=== PATIENT | male | born 1940 | race Caucasian/White ===

== ENCOUNTER → 2020-11-29 12:57 | Outpatient (BNVA) | payer MEDICARE, OTHER, SELFPAY | PROVIDERS: PCP Internal Medicine; Visit Provider Hospitalist | DX: J44.9 Chronic obstructive pulmonary disease, unspecified (principal); J96.11 Chronic respiratory failure with hypoxia; S22.42XS Multiple fractures of ribs, left side, sequela | CPT/HCPCS: 99212 ==

== ENCOUNTER 2021-01-03 17:15 | Emergency (ER) | payer MEDICARE, OTHER, SELFPAY ==
--- NOTE | ~2021-01-03 | XR_ITS ---
EXAMINATION: XR CHEST CLINICAL INFORMATION: Shortness of breath COMPARISON: Dictated report chest x-ray August 30, 2016. Images are not available for review TECHNIQUE: Frontal portable view of the chest was obtained. 6:12 PM FINDINGS: Status post median sternotomy. The heart size is normal. No significant central pulmonary vascular congestion. Emphysematous bullous changes of upper lobes with parenchymal scarring. Likely pleural calcifications as well. There is hazy airspace opacities in the mid and lower lung which may be acute airspace disease. No dense consolidation. No large pleural effusion pneumothorax. XR/XR chest 1V IMPRESSION: Hazy airspace opacity in the mid and lower lungs bilateral. This may be due to infectious or inflammatory etiology, pneumonia versus cardiogenic etiology. Status post median sternotomy. Short-term follow-up PA and lateral chest x-ray would be suggested.
[2021-01-03 17:23] VITALS: BP 112/66; BP 121/76; PULSE 62; PULSE 65; RESP 17; TEMP 36.8; O2SAT 92; O2SAT 97; BMI 27.3
--- NOTE | 2021-01-03 17:34 | ED_ITS ---
HPI - SOB/Dyspnea General Chief Complaint: Dyspnea Stated Complaint: sob Time Seen by Provider: 01/03/21 17:33 Source: patient and family Mode of arrival: EMS Limitations: no limitations History of Present Illness HPI Narrative: Patient is 80 old with history of severe COPD on 3 L oxygen mostly in the night and during exertion for last 4 days been feeling more short of breath coughing with mucopurulent phlegm and using oxygen during daytime also patient is on Entyvio for Crohn's disease for last 4 yrs no chest pain or palpitation no leg swelling feels cold no chills Related Data Home Medications Medication Instructions Recorded Confirmed atorvastatin 10 mg tablet 10 mg PO DAILY 11/29/20 lamotrigine 25 mg tablet mg PO 11/29/20 mesalamine 0.375 gram 1.5 g PO QAM 11/29/20 capsule,extended release 24 hr propafenone 225 mg tablet 225 mg PO BID 11/29/20 quetiapine 25 mg tablet mg PO 11/29/20 quetiapine 50 mg tablet 50 mg PO DAILY 11/29/20 tamsulosin 0.4 mg capsule 0.4 mg PO DAILY 11/29/20 vortioxetine 10 mg tablet mg PO 11/29/20 (Trintellix) Previous Rx's Medication Instructions Recorded albuterol sulfate 90 mcg/actuation 2 inh INHALATION Q6H PRN 30 Days 11/29/20 aerosol inhaler #18 g fluticasone propionate 110 1 puff INHALATION BID #12 g 11/29/20 mcg/actuation HFA aerosol inhaler (Flovent HFA) tiotropium 2.5 mcg-olodaterol 2.5 2 puff INHALATION DAILY 30 Days #4 11/29/20 mcg/actuation mist for inhalation g (Stiolto Respimat) azithromycin 250 mg tablet 250 mg PO DAILY 4 Days #4 tab 01/03/21 (Zithromax) doxycycline hyclate 100 mg tablet 100 mg PO BID #20 tab 01/03/21 prednisone 20 mg tablet 40 mg PO DAILY #10 tab 01/03/21 Allergies Allergy/AdvReac Type Severity Reaction Status Date / Time Sulfa (Sulfonamide Allergy Severe Hives/Rash Verified 11/29/20 13:09 Antibiotics) trospium Allergy Severe Constipatio Verified 11/29/20 13:12 n Adhesive Tape Allergy Severe Rash Uncoded 11/29/20 13:09 Review of Systems Review of Systems: Yes all other systems are reviewed and are negative [facility] Past Medical History Medical History Acute Crohn's disease Atrial fibrillation BPH (benign prostatic hyperplasia) Chronic respiratory failure COPD (chronic obstructive pulmonary disease) case management patient Dementia Hyperlipidemia Hypertension Osteoarthritis Pneumonia Rib fractures Seizure Skin cancer Social History Social History Patient Tobacco Use Status: Former Tobacco user Tobacco use type: Cigarette Years Smoked: 11 years ago Advance Directives: No Advance Directives Information Provided: Yes Physical Exam Vital Signs: Vital Signs: Last Vital Signs Temp 97.6 F 01/03/21 21:14 Pulse 67 01/03/21 21:14 Resp 12 01/03/21 21:14 BP 108/66 01/03/21 21:14 Pulse Ox 94 01/03/21 21:14 Oxygen Flow Rate 3 01/03/21 17:23 Body Mass Index 27.3 Appearance: Alert. Oriented X3. No acute distress. Eyes: No pallor or icterus ENT: Pharynx normal. Oral Mucosa moist Neck: Normal inspection. Neck supple. CVS: Normal heart rate and rhythm. Pulses normal. Respiratory: No respiratory distress. Equal air entry bilateral, prolonged expiration occasional crackles in the bases Abdomen: Soft and nontender. Bowel sounds are present, no mass palpable, no CVA tenderness Skin: Skin warm and dry. Normal skin color. Normal skin turgor. Extremities: No lower extremity edema. No calf tenderness Neuro: Oriented X 3. MDM - SOB/Dyspnea MDM Narrative Medical decision making narrative: Patient feeling much better after coming to the ER nebulizing treatment was given along with Solu-Medrol p.o. doxycycline and Zithromax was given for bronchitis. Will discharge patient home on prednisone doxycycline Zithromax chest x-ray negative for any acute infiltrate slight haziness is mid and lower areas bilateral likely inflammatory the time of discharge patient was saturating 94% on 2 L nasal cannula ambulatory without any significant distress Lab Data Attestation: I reviewed the patient's lab results. Result diagrams: 01/03/21 18:01 01/03/21 18:32 Labs: Lab Results 10/26/21 10/26/21 10/26/21 Range/Units 18:01 18:01 18:01 WBC 6.7 (4.8-10.8) X10*3/uL RBC 4.74 (4.60-5.80) X10*6/uL Hgb 14.9 (14.0-18.0) g/dl Hct 45.0 (42-52) % MCV 94.9 (80-98) fL MCH 31.4 (27.0-33.0) pg MCHC 33.1 (31.0-36.0) g/dl RDW 13.2 (11.0-16.0) % Plt Count 202 (160-400) X10*3/uL MPV 9.5 (9.4-12.4) fL Immature Gran % (Auto) 0.4 (0.0-0.4) % Neut % (Auto) 58.0 (45-73) % Lymph % (Auto) 25.9 (20-40) % [place] % (Auto) 10.2 (2-11) % Eos % (Auto) 4.9 H (0-4) % Baso % (Auto) 0.6 (0-2) % Lymph # (Auto) 1.7 (1.2-4.9) X10*3/uL [place] # (Auto) 0.7 (0.1-1.2) X10*3/uL Eos # (Auto) 0.3 (0.0-0.4) X10*3/uL Baso # (Auto) 0.0 (0.0-0.2) X10*3/uL Abs Immat Gran (auto) 0.03 (0.00-0.03) X10*3/uL Absolute Neuts (auto) 3.9 (2.0-8.3) X10*3/uL Absolute Nucleated RBC 0.000 (0.0-0.012) X10*3/uL Nucleated RBC % (auto) 0.0 (0.0-0.2) /100WBC PT (9.9-13.0) SEC INR (0.9-1.1) Sodium (135-145) mmol/L Potassium (3.3-5.1) mmol/L Chloride (96-108) mmol/L Carbon Dioxide (22-29) mmol/L Anion Gap (12-20) BUN (9-16) mg/dL Creatinine (0.5-1.4) mg/dL Estim Creat Clear Calc Estimated GFR Random Glucose (60-115) mg/dL Lactic Acid (0.5-2.0) mmol/L Calcium (8.4-10.2) mg/dL Total Bilirubin (0.0-1.0) mg/dL Direct Bilirubin (0.0-0.5) mg/dL AST (5-37) U/L ALT (0-40) U/L Alkaline Phosphatase (39-117) U/L Troponin I High Sens < 3.5 (<3.5-35.0) ng/L B-Natriuretic Peptide 24 (<100) pg/mL Total Protein (6.5-8.0) g/dL Albumin (3.5-5.0) g/dL COVID-19 (BIANKA) Negative (Negative) COVID-19 Clin Com See Note 01/03/21 01/03/21 01/03/21 Range/Units 18:01 18:01 18:32 WBC (4.8-10.8) X10*3/uL RBC (4.60-5.80) X10*6/uL Hgb (14.0-18.0) g/dl Hct (42-52) % MCV (80-98) fL MCH (27.0-33.0) pg MCHC (31.0-36.0) g/dl RDW (11.0-16.0) % Plt Count (160-400) X10*3/uL MPV (9.4-12.4) fL Immature Gran % (Auto) (0.0-0.4) % Neut % (Auto) (45-73) % Lymph % (Auto) (20-40) % [place] % (Auto) (2-11) % Eos % (Auto) (0-4) % Baso % (Auto) (0-2) % Lymph # (Auto) (1.2-4.9) X10*3/uL [place] # (Auto) (0.1-1.2) X10*3/uL Eos # (Auto) (0.0-0.4) X10*3/uL Baso # (Auto) (0.0-0.2) X10*3/uL Abs Immat Gran (auto) (0.00-0.03) X10*3/uL Absolute Neuts (auto) (2.0-8.3) X10*3/uL Absolute Nucleated RBC (0.0-0.012) X10*3/uL Nucleated RBC % (auto) (0.0-0.2) /100WBC PT 12.3 (9.9-13.0) SEC INR 1.1 (0.9-1.1) Sodium 139 (135-145) mmol/L Potassium 4.0 (3.3-5.1) mmol/L Chloride 107 (96-108) mmol/L Carbon Dioxide 24 (22-29) mmol/L Anion Gap 12 (12-20) BUN 14 (9-16) mg/dL Creatinine 0.94 (0.5-1.4) mg/dL Estim Creat Clear Calc 65.6 Estimated GFR > 60 Random Glucose 92 (60-115) mg/dL Lactic Acid 1.0 (0.5-2.0) mmol/L Calcium 8.5 (8.4-10.2) mg/dL Total Bilirubin 0.5 (0.0-1.0) mg/dL Direct Bilirubin 0.2 (0.0-0.5) mg/dL AST 15 (5-37) U/L ALT 16 (0-40) U/L Alkaline Phosphatase 68 (39-117) U/L Troponin I High Sens (<3.5-35.0) ng/L B-Natriuretic Peptide (<100) pg/mL Total Protein 6.6 (6.5-8.0) g/dL Albumin 3.9 (3.5-5.0) g/dL COVID-19 (BIANKA) (Negative) COVID-19 Clin Com Discharge Plan Discharge Clinical Impression: Acute exacerbation of chronic obstructive airways disease Patient Disposition: Xfer LTC Transfer Details: Assisted living Instructions: COPD (Chronic Obstructive Pulmonary Disease) (ED) Additional Instructions: Continue oxygen Continue nebulizer and inhalers as prescribed by mail messenger contractor Take course of antibiotic as prescribed Course of prednisone as advised Report to the ER/PCP if not better Prescriptions: New prednisone 20 mg tablet 40 mg PO DAILY Qty: 10 RF: 0 doxycycline hyclate 100 mg tablet 100 mg PO BID Qty: 20 RF: 0 azithromycin [Zithromax] 250 mg tablet 250 mg PO DAILY 4 Days Qty: 4 RF: 0 No Action atorvastatin 10 mg tablet 10 mg PO DAILY RF: 0 lamotrigine 25 mg tablet PO RF: 0 quetiapine 25 mg tablet PO RF: 0 tamsulosin 0.4 mg capsule 0.4 mg PO DAILY RF: 0 Trintellix 10 mg tablet PO RF: 0 mesalamine 0.375 gram capsule,extended release 24hr 1.5 g PO QAM RF: 0 quetiapine 50 mg tablet 50 mg PO DAILY RF: 0 propafenone 225 mg tablet 225 mg PO BID RF: 0 Flovent HFA 110 mcg/actuation HFA aerosol inhaler 1 puff inhalation BID Qty: 12 RF: 11 albuterol sulfate 90 mcg/actuation HFA aerosol inhaler 2 inh inhalation Q6H PRN (Reason: shortness of breath or wheezing) 30 Days Qty: 18 RF: 12 Stiolto Respimat 2.5-2.5 mcg/actuation mist 2 puff inhalation DAILY 30 Days Qty: 4 RF: 11 Interventions: ED Discharge Assessment Last Done: 01/03/21 22:14 Discharge Date/Time: 01/03/21 22:15
--- NOTE | 2021-01-03 17:39 | ECG_ITS ---
Test Reason : SHORTNESS OF BREATH Blood Pressure : / mmHG Vent. Rate : 062 BPM Atrial Rate : 062 BPM P-R Int : 178 ms QRS Dur : 110 ms QT Int : 410 ms P-R-T Axes : 065 102 065 degrees QTc Int : 416 ms Normal sinus rhythm Rightward axis Intra-ventricular conduction delay Low voltage QRS Borderline ECG No previous ECGs available Referred By: Calvin Corrigan Electronically Signed By:KAITLIN ARMSTRONG MD
[2021-01-03 18:14] LABS: MANUAL DIFF FLAG NO
[2021-01-03] MEDS: Albuterol/Iprat 2.5/0.5MG 3 ML AMPUL.NEB INHALE (18:15)
[2021-01-03 18:16] VITALS: PULSE 61; O2SAT 95
[2021-01-03 18:25] LABS: Basophils Percent Auto 0.6 % (0-2); Eosinophils Absolute Auto 0.3 X10*3/uL (0.0-0.4); Eosinophils Percent Auto 4.9 % (0-4); Hemoglobin 14.9 g/dl (14.0-18.0); INTERNATIONAL NORM RATIO 1.1 (0.9-1.1); Imm Gran Abs Auto 0.03 X10*3/uL (0.00-0.03); Imm Gran Pct Auto 0.4 % (0.0-0.4); Lymphocytes Absolute Auto 1.7 X10*3/uL (1.2-4.9); Lymphocytes Percent Auto 25.9 % (20-40); Mean Corpuscular HGB Conc 33.1 g/dl (31.0-36.0); Mean Corpuscular Hemoglobin 31.4 pg (27.0-33.0); Mean Corpuscular Volume 94.9 fL (80-98); Mean Platelet Volume 9.5 fL (9.4-12.4); Monocytes Absolute Auto 0.7 X10*3/uL (0.1-1.2); Monocytes Percent Auto 10.2 % (2-11); Neutrophils Absolute Auto 3.9 X10*3/uL (2.0-8.3); Platelet Count 202 X10*3/uL (160-400); Prothrombin Time 12.3 SEC (9.9-13.0); Red Blood Count 4.74 X10*6/uL (4.60-5.80); Red Cell Distribution Width 13.2 % (11.0-16.0); White Blood Count 6.7 X10*3/uL (4.8-10.8)
[2021-01-03 18:39] LABS: B Type Natriuretic Peptide 24 pg/mL (<100); Troponin-I High Sensitivity < 3.5 ng/L (<3.5-35.0)
[2021-01-03 18:40] LABS: COVID-19 Test Negative (Negative); IDNOW Serial# 9DD0AD1C
[2021-01-03 18:56] LABS: Alanine Aminotransferase 16 U/L (0-40); Albumin Level 3.9 g/dL (3.5-5.0); Alkaline Phosphatase 68 U/L (39-117); Anion Gap 12 (12-20); Aspartate Amino Transferase 15 U/L (5-37); Bilirubin Direct 0.2 mg/dL (0.0-0.5); Bilirubin Total 0.5 mg/dL (0.0-1.0); Blood Urea Nitrogen 14 mg/dL (9-16); Calcium 8.5 mg/dL (8.4-10.2); Carbon Dioxide 24 mmol/L (22-29); Chloride 107 mmol/L (96-108); Creatinine Clr Calc Pharmacy 65.6; Estimated Glomerular Filt Rate > 60; Glucose Random 92 mg/dL (60-115); Sodium 139 mmol/L (135-145); Total Protein 6.6 g/dL (6.5-8.0)
[2021-01-03] MEDS: methylPREDNISolone Sod Succ 125 MG/2 ML VIAL IVPUSH (20:17)
[2021-01-03] MEDS: Azithromycin 500 MG TABLET PO (20:18)
[2021-01-03 21:14] VITALS: BP 108/66; PULSE 67; RESP 12; TEMP 36.4; O2SAT 94
== END 2021-01-03 22:15 ==
PROVIDERS: Emergency Provider Internal Medicine; PCP Internal Medicine
DX: J44.1 Chronic obstructive pulmonary disease with (acute) exacerbation (principal); R06.02 Shortness of breath; K50.90 Crohn's disease, unspecified, without complications; Z99.81 Dependence on supplemental oxygen; Z79.899 Other long term (current) drug therapy
CPT/HCPCS: 36415; 71045; 80048; 80076; 83605; 83880; 84484; 85025; 85610; 87040; 87635; 93005; 99284; J2930

== ENCOUNTER → 2021-01-06 09:30 | Outpatient (BNVA) | payer MEDICARE, OTHER, SELFPAY | PROVIDERS: PCP Internal Medicine; Visit Provider Hospitalist | DX: J44.9 Chronic obstructive pulmonary disease, unspecified (principal); J96.11 Chronic respiratory failure with hypoxia; J96.20 Acute and chronic respiratory failure, unspecified whether with hypoxia or hypercapnia; R07.9 Chest pain, unspecified; S22.42XS Multiple fractures of ribs, left side, sequela | CPT/HCPCS: 99212 ==

== ENCOUNTER 2021-01-06 10:27 | Inpatient (IN) | payer MEDICARE, OTHER, SELFPAY ==
--- NOTE | ~2021-01-06 | CT_ITS ---
EXAMINATION: CT ANGIOGRAM OF THE CHEST WITH AND WITHOUT CONTRAST (CT PULMONARY ANGIOGRAM FOR PE) CLINICAL INFORMATION: Reason for Exam PE r/o per pulmonology . Shortness of breath. COMPARISON: Previous chest x-ray 01/03/2021 TECHNIQUE: Prior to contrast administration, noncontrast localization images were obtained. Subsequently, multidetector volumetric imaging was performed from the thoracic inlet to below the diaphragms following the administration of 65 mL Omnipaque 350 intravenous contrast. No contrast reaction reported Sagittal, coronal, and MIP oblique sagittal reformatted images were obtained on the CT workstation, uploaded to PACS, and reviewed. This CT examination was performed using dose optimization techniques as appropriate, variously including the following: *Automated exposure control *Adjustment of mA and/or kV according to patient size (this includes techniques or standardized protocols for targeted exams where dose is matched to indication/reason for exam; i.e. extremities or head) *Use of iterative reconstruction technique Total exam dose-length product 374 mGy-cm FINDINGS: QUALITY OF STUDY/CONTRAST BOLUS: Satisfactory. PULMONARY ARTERIES: No central or segmental pulmonary emboli. THORACIC AORTA: No aneurysm or dissection. LUNG: There is evidence of severe emphysema and bullous disease seen in the upper there is crowding of lung markings at the lung bases. The lungs are clear. No endobronchial or endotracheal lesion is seen. Lungs. There are postsurgical changes to both upper lobes. There are adjacent thick bandlike linear densities. PLEURA: There is slight bilateral pleural thickening and pleural calcification. MEDIASTINUM: Normal heart size. Mild coronary artery calcification. No pericardial effusion. No hilar or mediastinal lymphadenopathy. No evidence of septal bowing or right heart strain. CHEST WALL/AXILLA: No axillary or internal mammary lymphadenopathy. OSSEOUS STRUCTURES: There is a recent left lateral seventh rib fracture. There is a right anterior third rib fracture. The costochondral cartilage of uncertain age.. There are mild degenerative changes of the spine. There are median sternotomy wires. UPPER ABDOMEN: There are several small low-attenuation liver lesions. This is difficult to characterize but may represent cysts. The largest measures 5 x 10 mm in the lateral segment of the left lobe axial image 55 series 4. There are 2 low-attenuation lesions in the upper pole of the right kidney measuring 1.2-2.5 cm probably representing cysts. There is mild reflux of contrast into the hepatic veins suggesting elevated right heart pressures. CT/CT angio chest PE protocol IMPRESSION: No evidence of pulmonary embolism. Severe bullous emphysema. Postsurgical changes to both upper lobes. Crowding lung markings at the lung bases. No evidence of pneumonia. Mild bilateral pleural thickening and pleural calcification. Bilateral rib fractures. VTE: negative
[2021-01-06 10:39] VITALS: BP 108/54; PULSE 63; RESP 20; O2SAT 98; BMI 27.0
--- NOTE | 2021-01-06 10:52 | ECG_ITS ---
Test Reason : DYSPNEA Blood Pressure : / mmHG Vent. Rate : 062 BPM Atrial Rate : 062 BPM P-R Int : 180 ms QRS Dur : 126 ms QT Int : 394 ms P-R-T Axes : 068 106 055 degrees QTc Int : 399 ms Normal sinus rhythm Rightward axis Low voltage QRS Non-specific intra-ventricular conduction block Abnormal ECG No significant changes seen Referred By: Breanne Garnett Electronically Signed By:KAITLIN ARMSTRONG MD
--- NOTE | 2021-01-06 11:14 | ED_ITS ---
HPI - SOB/Dyspnea General Chief Complaint: Dyspnea Stated Complaint: chest discomfort, sob Time Seen by Provider: 01/06/21 10:51 Source: patient Mode of arrival: ambulatory Limitations: no limitations History of Present Illness HPI Narrative: Patient comes to the emergency room from his hardware sales assistant's office, Dr. Farnsworth. Patient was seen here a few days ago, diagnosed with COPD exacerbation, started on prednisone, doxycycline and azithromycin. Patient was discharged home. Patient have a follow-up appointment with his hardware sales assistant today. Patient has history of dementia, however, he mentioned that he had chest pain and seems to be more short of breath. Patient only uses oxygen at bedtime. However, over last 4-5 days he has been using oxygen around the clock. I spoke with Dr. Farnsworth, we will go ahead and do a complete workup, rule out PE, and patient will likely benefit from admission.. At this time, patient states that he does not have chest pain, only occasional chest pressure. States that he feels comfortable breathing with his oxygen on. Denies abdominal pain, no fever or chills. MD elicited complaint: shortness of breath Related Data Home Medications Medication Instructions Recorded Confirmed atorvastatin 10 mg tablet 10 mg PO DAILY 11/29/20 01/06/21 lamotrigine 25 mg tablet 50 mg PO BID 11/29/20 01/06/21 mesalamine 0.375 gram 1.5 g PO QAM 11/29/20 01/06/21 capsule,extended release 24 hr propafenone 225 mg tablet 225 mg PO BID 11/29/20 01/06/21 quetiapine 25 mg tablet 25 mg PO DAILY@0900,1700 11/29/20 01/06/21 quetiapine 50 mg tablet 50 mg PO DAILY@1300,2100 11/29/20 01/06/21 tamsulosin 0.4 mg capsule 0.4 mg PO DAILY 11/29/20 01/06/21 vortioxetine 10 mg tablet 10 mg PO BID 11/29/20 01/06/21 (Trintellix) aspirin 81 mg chewable tablet 81 mg PO DAILY 01/06/21 01/06/21 multivitamin 1 tab PO DAILY 01/06/21 01/06/21 Previous Rx's Medication Instructions Recorded albuterol sulfate 90 mcg/actuation 2 inh INHALATION Q6H PRN 30 Days 11/29/20 aerosol inhaler #18 g fluticasone propionate 110 1 puff INHALATION BID #12 g 11/29/20 mcg/actuation HFA aerosol inhaler (Flovent HFA) tiotropium 2.5 mcg-olodaterol 2.5 2 puff INHALATION DAILY 30 Days #4 11/29/20 mcg/actuation mist for inhalation g (Stiolto Respimat) azithromycin 250 mg tablet 250 mg PO DAILY 4 Days #4 tab 01/03/21 (Zithromax) doxycycline hyclate 100 mg tablet 100 mg PO BID #20 tab 01/03/21 prednisone 20 mg tablet 40 mg PO DAILY #10 tab 01/03/21 Allergies Allergy/AdvReac Type Severity Reaction Status Date / Time Sulfa (Sulfonamide Allergy Severe Hives/Rash Verified 01/06/21 09:32 Antibiotics) trospium Allergy Severe Constipatio Verified 01/06/21 09:32 n Adhesive Tape Allergy Severe Rash Uncoded 11/29/20 13:09 Review of Systems Review of Systems: Constitutional : No Weight loss, No Fever, No Chills, No Night Sweats, No Fatigue, No Malaise ENT/Mouth : No Hearing loss, No Ear Pain, No Nasal Congestion, No Sinus Pain, No Hoarseness, No sore throat, No Rhinorrhea, No Swallowing Difficulty Eyes: No Eye Pain, No Swelling, No Redness, No Foreign Body, No Discharge, No Vision Changes Cardiovascular : Mild substernal chest pressure, more shortness of breath than usual which is improved by oxygen, no palpitations Respiratory : Complaining of Cough but is at baseline per patient, No Sputum, No Wheezing, No Smoke Exposure, No Dyspnea Gastrointestinal : No Nausea, No Vomiting, No Diarrhea, No Constipation, No abdominal Pain, No Hematochezia, No Melena Genitourinary : no irregular bleeding, No Dysuria, No Urinary Frequency, No Hematuria, No Urinary Incontinence, No Urgency, No Flank Pain, No Urinary Flow Changes, No Hesitancy Musculoskeletal : No joint pain, No Myalgias, No Joint Swelling Skin : No Skin Lesions, No rash Neuro : No Weakness, No Numbness, No Paresthesias, No Loss of Consciousness, No Dizziness, No Headache Psych : No Anxiety/Panic, No Depression, No SI/HI/AH/VH, No Social Issues, Heme/Lymph: No Bruising, No Bleeding,No Lymphadenopathy Endocrine : No Polyuria, No Polydipsia, No Temperature Intolerance [facility] Past Medical History Medical History Acute Crohn's disease Atrial fibrillation BPH (benign prostatic hyperplasia) Chronic respiratory failure COPD (chronic obstructive pulmonary disease) case management patient Dementia Hyperlipidemia Hypertension Osteoarthritis Pneumonia Rib fractures Seizure Skin cancer Social History Social History Patient Tobacco Use Status: Former Tobacco user Tobacco use type: Cigarette Years Smoked: 11 years ago Use of substances other than those prescribed or required for medical reasons: No Advance Directives: No Advance Directives Information Provided: Yes Physical Exam Vital Signs: Vital Signs: Last Vital Signs Pulse 63 01/06/21 10:39 Resp 20 01/06/21 10:39 BP 108/54 L 01/06/21 10:39 Pulse Ox 98 01/06/21 10:39 Oxygen Flow Rate 2 01/06/21 10:39 Body Mass Index 27.0 Const: Other: Appearance: Alert. Oriented X3. No acute distress. Eyes: Pupils equal, round and reactive to light. ENT: Pharynx normal. Neck: Normal inspection. Neck supple. No lymph nodes noted. No crepitus CVS: Normal heart rate and rhythm. Pulses normal. Normal S1 and S2 Respiratory: No respiratory distress. Nasal cannula 2 L, mild expiratory wheezing bilaterally, good air movement, bilateral basilar crackles Abdomen: Soft and nontender. No rigidity. No distention. Skin: Skin warm and dry. Normal skin color. Normal skin turgor. Extremities: No lower extremity edema. No lower extremity edema. No Lacerations. No Rash Neuro: Oriented X 3. No motor deficit. No sensory deficit. Moving all extermities. No slurred speech. Course Course Course Narrative: Patient is doing fairly well on oxygen 2L, tolerating well p.o. I discussed the patient with Dr. Arana and Dr. Farnsworth, pt being admitted MDM - SOB/Dyspnea Lab Data Result diagrams: 01/06/21 11:17 01/06/21 11:17 Labs: Lab Results 01/06/21 01/06/21 01/06/21 Range/Units 11:17 11:17 11:17 WBC 11.7 H (4.8-10.8) X10*3/uL RBC 4.59 L (4.60-5.80) X10*6/uL Hgb 14.7 (14.0-18.0) g/dl Hct 44.8 (42-52) % MCV 97.6 (80-98) fL MCH 32.0 (27.0-33.0) pg MCHC 32.8 (31.0-36.0) g/dl RDW 13.5 (11.0-16.0) % Plt Count 193 (160-400) X10*3/uL MPV 9.4 (9.4-12.4) fL Immature Gran % (Auto) 0.3 (0.0-0.4) % Neut % (Auto) 84.2 H (45-73) % Lymph % (Auto) 9.1 L (20-40) % [place] % (Auto) 5.4 (2-11) % Eos % (Auto) 0.7 (0-4) % Baso % (Auto) 0.3 (0-2) % Lymph # (Auto) 1.1 L (1.2-4.9) X10*3/uL [place] # (Auto) 0.6 (0.1-1.2) X10*3/uL Eos # (Auto) 0.1 (0.0-0.4) X10*3/uL Baso # (Auto) 0.0 (0.0-0.2) X10*3/uL Abs Immat Gran (auto) 0.04 H (0.00-0.03) X10*3/uL Absolute Neuts (auto) 9.9 H (2.0-8.3) X10*3/uL Absolute Nucleated RBC 0.000 (0.0-0.012) X10*3/uL Nucleated RBC % (auto) 0.0 (0.0-0.2) /100WBC PT 12.5 (9.9-13.0) SEC INR 1.1 (0.9-1.1) D-Dimer < 200 NG/ML Sodium 140 (135-145) mmol/L Potassium 4.6 (3.3-5.1) mmol/L Chloride 109 H (96-108) mmol/L Carbon Dioxide 23 (22-29) mmol/L Anion Gap 13 (12-20) BUN 17 H (9-16) mg/dL Creatinine 0.87 (0.5-1.4) mg/dL Estim Creat Clear Calc 70.9 Estimated GFR > 60 Random Glucose 117 H (60-115) mg/dL Lactic Acid (0.5-2.0) mmol/L Calcium 8.7 (8.4-10.2) mg/dL Total Bilirubin 0.5 (0.0-1.0) mg/dL Direct Bilirubin 0.2 (0.0-0.5) mg/dL AST 24 D (5-37) U/L ALT 24 (0-40) U/L Alkaline Phosphatase 64 (39-117) U/L Troponin I High Sens (<3.5-35.0) ng/L B-Natriuretic Peptide (<100) pg/mL Total Protein 7.0 (6.5-8.0) g/dL Albumin 4.0 (3.5-5.0) g/dL COVID-19 (BIANKA) (Negative) COVID-19 Clin Com 01/06/21 01/06/21 01/06/21 Range/Units 11:17 11:17 11:17 WBC (4.8-10.8) X10*3/uL RBC (4.60-5.80) X10*6/uL Hgb (14.0-18.0) g/dl Hct (42-52) % MCV (80-98) fL MCH (27.0-33.0) pg MCHC (31.0-36.0) g/dl RDW (11.0-16.0) % Plt Count (160-400) X10*3/uL MPV (9.4-12.4) fL Immature Gran % (Auto) (0.0-0.4) % Neut % (Auto) (45-73) % Lymph % (Auto) (20-40) % [place] % (Auto) (2-11) % Eos % (Auto) (0-4) % Baso % (Auto) (0-2) % Lymph # (Auto) (1.2-4.9) X10*3/uL [place] # (Auto) (0.1-1.2) X10*3/uL Eos # (Auto) (0.0-0.4) X10*3/uL Baso # (Auto) (0.0-0.2) X10*3/uL Abs Immat Gran (auto) (0.00-0.03) X10*3/uL Absolute Neuts (auto) (2.0-8.3) X10*3/uL Absolute Nucleated RBC (0.0-0.012) X10*3/uL Nucleated RBC % (auto) (0.0-0.2) /100WBC PT (9.9-13.0) SEC INR (0.9-1.1) D-Dimer NG/ML Sodium (135-145) mmol/L Potassium (3.3-5.1) mmol/L Chloride (96-108) mmol/L Carbon Dioxide (22-29) mmol/L Anion Gap (12-20) BUN (9-16) mg/dL Creatinine (0.5-1.4) mg/dL Estim Creat Clear Calc Estimated GFR Random Glucose (60-115) mg/dL Lactic Acid 1.2 (0.5-2.0) mmol/L Calcium (8.4-10.2) mg/dL Total Bilirubin (0.0-1.0) mg/dL Direct Bilirubin (0.0-0.5) mg/dL AST (5-37) U/L ALT (0-40) U/L Alkaline Phosphatase (39-117) U/L Troponin I High Sens < 3.5 (<3.5-35.0) ng/L B-Natriuretic Peptide 65 (<100) pg/mL Total Protein (6.5-8.0) g/dL Albumin (3.5-5.0) g/dL COVID-19 (BIANKA) Negative (Negative) COVID-19 Clin Com See Note Imaging Data CTA: Radiologist's impression: FINDINGS: QUALITY OF STUDY/CONTRAST BOLUS: Satisfactory. PULMONARY ARTERIES: No central or segmental pulmonary emboli.? THORACIC AORTA: No aneurysm or dissection. LUNG: There is evidence of severe emphysema and bullous disease seen in the upper there is crowding of lung markings at the lung bases. The lungs are clear. No endobronchial or endotracheal lesion is seen. Lungs. There are postsurgical changes to both upper lobes. There are adjacent thick bandlike linear densities. PLEURA: There is slight bilateral pleural thickening and pleural calcification. MEDIASTINUM: Normal heart size. Mild coronary artery calcification. No pericardial effusion.? No hilar or mediastinal lymphadenopathy.? No evidence of septal bowing or right heart strain. CHEST WALL/AXILLA: No axillary or internal mammary lymphadenopathy. OSSEOUS STRUCTURES: There is a recent left lateral seventh rib fracture. There is a right anterior third rib fracture. The costochondral cartilage of uncertain age.. There are mild degenerative changes of the spine. There are median sternotomy wires. UPPER ABDOMEN: There are several small low-attenuation liver lesions. This is difficult to characterize but may represent cysts. The largest measures 5 x 10 mm in the lateral segment of the left lobe axial image 55 series 4. There are 2 low-attenuation lesions in the upper pole of the right kidney measuring 1.2-2.5 cm probably representing cysts. There is mild reflux of contrast into the hepatic veins suggesting elevated right heart pressures. CT/CT angio chest PE protocol IMPRESSION: No evidence of pulmonary embolism. Severe bullous emphysema. Postsurgical changes to both upper lobes. Crowding lung markings at the lung bases. No evidence of pneumonia. Mild bilateral pleural thickening and pleural calcification. Bilateral rib fractures. ? VTE: negative Discharge Plan Discharge Clinical Impression: COPD (chronic obstructive pulmonary disease) Patient Disposition: Admitted As Inpatient
[2021-01-06 11:27] LABS: MANUAL DIFF FLAG NO
[2021-01-06 11:30] LABS: Basophils Percent Auto 0.3 % (0-2); Eosinophils Absolute Auto 0.1 X10*3/uL (0.0-0.4); Eosinophils Percent Auto 0.7 % (0-4); Hematocrit 44.8 % (42-52); Hemoglobin 14.7 g/dl (14.0-18.0); Imm Gran Abs Auto 0.04 X10*3/uL (0.00-0.03); Imm Gran Pct Auto 0.3 % (0.0-0.4); Lymphocytes Absolute Auto 1.1 X10*3/uL (1.2-4.9); Lymphocytes Percent Auto 9.1 % (20-40); Mean Corpuscular HGB Conc 32.8 g/dl (31.0-36.0); Mean Corpuscular Volume 97.6 fL (80-98); Mean Platelet Volume 9.4 fL (9.4-12.4); Monocytes Absolute Auto 0.6 X10*3/uL (0.1-1.2); Monocytes Percent Auto 5.4 % (2-11); Neutrophils Absolute Auto 9.9 X10*3/uL (2.0-8.3); Neutrophils Percent Auto 84.2 % (45-73); Platelet Count 193 X10*3/uL (160-400); Red Blood Count 4.59 X10*6/uL (4.60-5.80); Red Cell Distribution Width 13.5 % (11.0-16.0); White Blood Count 11.7 X10*3/uL (4.8-10.8)
[2021-01-06 11:37] LABS: INTERNATIONAL NORM RATIO 1.1 (0.9-1.1); Prothrombin Time 12.5 SEC (9.9-13.0)
[2021-01-06 11:41] LABS: Lactic Acid 1.2 mmol/L (0.5-2.0)
[2021-01-06 11:44] LABS: D Dimer < 200 NG/ML
[2021-01-06 11:45] LABS: COVID-19 Test Negative (Negative); IDNOW Serial# 9DD0AD1C
[2021-01-06 11:50] LABS: Alanine Aminotransferase 24 U/L (0-40); Alkaline Phosphatase 64 U/L (39-117); Anion Gap 13 (12-20); Aspartate Amino Transferase 24 U/L (5-37); Bilirubin Direct 0.2 mg/dL (0.0-0.5); Bilirubin Total 0.5 mg/dL (0.0-1.0); Blood Urea Nitrogen 17 mg/dL (9-16); Calcium 8.7 mg/dL (8.4-10.2); Carbon Dioxide 23 mmol/L (22-29); Chloride 109 mmol/L (96-108); Creatinine Clr Calc Pharmacy 70.9; Estimated Glomerular Filt Rate > 60; Glucose Random 117 mg/dL (60-115); Potassium 4.6 mmol/L (3.3-5.1); Sodium 140 mmol/L (135-145)
[2021-01-06 11:51] LABS: B Type Natriuretic Peptide 65 pg/mL (<100); Troponin-I High Sensitivity < 3.5 ng/L (<3.5-35.0)
--- NOTE | 2021-01-06 12:15 | PHA.MEDREC ---
Pharmacy Consult ? Medication Reconciliation Pharmacy has completed the medication reconciliation. Patient get blister packs from [facility]. Contact pharmacy to verify the directions. Patient's is unsure which ABX patient is on. Two were just prescribed by Dr. Farnsworth on 01/04/2021. Jessica Domínguez, GeoD
[2021-01-06] MEDS: iohexoL 350 MG/ML 100 ML INFUS..BTL IV (12:34)
[2021-01-06] MEDS: cefTRIAXone sodium 1 GM in 0.9 % Sodium Chloride 50 ML IV (13:29)
[2021-01-06] MEDS: methylPREDNISolone Sod Succ 125 MG/2 ML VIAL IVPUSH (13:30)
[2021-01-06] MEDS: Azithromycin 500 MG in 0.9 % Sodium Chloride 250 ML 125 MG IV (14:10)
--- NOTE | 2021-01-06 15:19 | PM.IMHP ---
History of Present Illness Date of Service: 01/06/21 80 year male with with among other COPD on O2 at 3l at night, mild dementia, afib that is rate controlled, HLD..He was seen in the ED on 01/03 with sob breath and was discharged to follow up with pulmonary clinic which she did today with Dr. Farnsworth and was subsequently sent to be evaluated in ED as he was also needing oxygen during the day. He has no cough, no fever..there has not being documentation of hypoxia here. CTA showed no PE, just some bronchial wall thickening. Review of Systems Review of Systems: sob, fatigu, no fever, no cough, Yes all other systems are reviewed and are negative [facility] Medical History Acute Crohn's disease Atrial fibrillation BPH (benign prostatic hyperplasia) Chronic respiratory failure COPD (chronic obstructive pulmonary disease) case management patient Dementia Hyperlipidemia Hypertension Osteoarthritis Pneumonia Rib fractures Seizure Skin cancer Family History (Updated 01/06/21 @ 15:20 by Jerad Arana MD) Father ALS (amyotrophic lateral sclerosis) Brother ALS (amyotrophic lateral sclerosis) Pertinent family history: . Social History Patient Tobacco Use Status: Former Tobacco user Tobacco use type: Cigarette Years Smoked: 11 years ago Use of substances other than those prescribed or required for medical reasons: No Advance Directives: No Advance Directives Information Provided: Yes Meds Allergies Allergy/AdvReac Type Severity Reaction Status Date / Time Sulfa (Sulfonamide Allergy Severe Hives/Rash Verified 01/06/21 09:32 Antibiotics) trospium Allergy Severe Constipatio Verified 01/06/21 09:32 n Adhesive Tape Allergy Severe Rash Uncoded 11/29/20 13:09 Active Medications: Current Medications Pharmacy Consult (Consult Rx Perform Med Rec) 1 each MISCELLANE ONCE PRN PRN Reason: Consult order Home Medications Medication Instructions Recorded Confirmed Last Taken Type atorvastatin 10 mg tablet 10 mg PO DAILY 11/29/20 01/06/21 Unknown History lamotrigine 25 mg tablet 50 mg PO BID 11/29/20 01/06/21 Unknown History mesalamine 0.375 gram 1.5 g PO QAM 11/29/20 01/06/21 Unknown History capsule,extended release 24 hr propafenone 225 mg tablet 225 mg PO BID 11/29/20 01/06/21 Unknown History quetiapine 25 mg tablet 25 mg PO DAILY@0900,1700 11/29/20 01/06/21 Unknown History quetiapine 50 mg tablet 50 mg PO DAILY@1300,2100 11/29/20 01/06/21 Unknown History tamsulosin 0.4 mg capsule 0.4 mg PO DAILY 11/29/20 01/06/21 Unknown History vortioxetine 10 mg tablet 10 mg PO BID 11/29/20 01/06/21 Unknown History (Trintellix) aspirin 81 mg chewable tablet 81 mg PO DAILY 01/06/21 01/06/21 Unknown History multivitamin 1 tab PO DAILY 01/06/21 01/06/21 Unknown History Physical Exam Vital Signs and Narrative: Vital Signs: Last Vital Signs Pulse 63 01/06/21 10:39 Resp 20 01/06/21 10:39 BP 108/54 L 01/06/21 10:39 Pulse Ox 98 01/06/21 10:39 Oxygen Flow Rate 2 01/06/21 10:39 Body Mass Index 27.0 Const: Other: Constitutional: Alert, in no distress, overweight. Mental Status: Oriented to person, place and time. Eyes: Pupils are equal, round and reactive to light. Ear, Nose and Throat: Oropharynx clear, mucous membranes moist. Ears and nose without eformities. Trachea midline Respiratory: Clear to auscultation. No wheezing, but some rales at baes Cardiovascular: S1 S2 regular. No murmurs, rubs or gallops. Gastrointestinal: Abdomen soft, non-tender, non-distended. Normal bowel sounds.? Neurologic: Cranial nerves II-XII grossly intact. No focal neurological deficits. Moves all extremities spontaneously.? Skin: No rashes or lesions.? Musculoskeletal: No cyanosis or clubbing. Psychiatric: Normal mood and affect? Results Labs CBC and Chem 7: 01/06/21 11:17 01/06/21 11:17 Labs: Laboratory Results - last 24 hr 01/06/21 01/06/21 01/06/21 11:17 11:17 11:17 MCV 97.6 MCH 32.0 MCHC 32.8 RDW 13.5 Plt Count 193 MPV 9.4 Immature Gran % (Auto) 0.3 Neut % (Auto) 84.2 H Lymph % (Auto) 9.1 L [place] % (Auto) 5.4 Eos % (Auto) 0.7 Baso % (Auto) 0.3 Lymph # (Auto) 1.1 L [place] # (Auto) 0.6 Eos # (Auto) 0.1 Baso # (Auto) 0.0 Abs Immat Gran (auto) 0.04 H Absolute Neuts (auto) 9.9 H Absolute Nucleated RBC 0.000 Nucleated RBC % (auto) 0.0 PT 12.5 INR 1.1 D-Dimer < 200 Anion Gap 13 Estim Creat Clear Calc 70.9 Estimated GFR > 60 Random Glucose 117 H Lactic Acid Calcium 8.7 Total Bilirubin 0.5 Direct Bilirubin 0.2 AST 24 D ALT 24 Alkaline Phosphatase 64 Troponin I High Sens B-Natriuretic Peptide Total Protein 7.0 Albumin 4.0 COVID-19 (BIANKA) COVID-19 [facility] [employer] 01/06/21 01/06/21 01/06/21 11:17 11:17 11:17 MCV MCH MCHC RDW Plt Count MPV Immature Gran % (Auto) Neut % (Auto) Lymph % (Auto) [place] % (Auto) Eos % (Auto) Baso % (Auto) Lymph # (Auto) [place] # (Auto) Eos # (Auto) Baso # (Auto) Abs Immat Gran (auto) Absolute Neuts (auto) Absolute Nucleated RBC Nucleated RBC % (auto) PT INR D-Dimer Anion Gap Estim Creat Clear Calc Estimated GFR Random Glucose Lactic Acid 1.2 Calcium Total Bilirubin Direct Bilirubin AST ALT Alkaline Phosphatase Troponin I High Sens < 3.5 B-Natriuretic Peptide 65 Total Protein Albumin COVID-19 (BIANKA) Negative COVID-19 Clin Com See Note Imaging Radiologist's Impressions: Impressions Chest CTA 01/06/21 10:51 IMPRESSION: No evidence of pulmonary embolism. Severe bullous emphysema. Postsurgical changes to both upper lobes. Crowding lung markings at the lung bases. No evidence of pneumonia. Mild bilateral pleural thickening and pleural calcification. Bilateral rib fractures. VTE: negative Assessment and Plan (1) COPD (chronic obstructive pulmonary disease): Status: Acute 80 male with COPD here with sob increase O2 requirement and will be observed overnight for mild exacerbation of COPD and assessment for home O2 in the morning. Plan: Observe ovenight, bronchodilators by neb, O2. Continue home meds for chronic issues as mentioned above. Quality Stroke Does the patient have a stroke diagnosis?: No VTE Prior VTE?: No VTE Risk Level:: Medical - low VTE Device Contraindication: Treatment Not Indicated VTE Drug Contraindication: Treatment Not Indicated
[2021-01-06] MEDS: Albuterol/Iprat 2.5/0.5MG 3 ML AMPUL.NEB INHALE ×2 (16:02→19:28)
[2021-01-06 16:03] VITALS: PULSE 68; O2SAT 96
[2021-01-06 16:33] VITALS: BP 98/54; PULSE 68; RESP 14; TEMP 36.3
[2021-01-06] MEDS: QUEtiapine Fumarate 25 MG TABLET PO (18:51)
[2021-01-06 19:29] VITALS: PULSE 62; O2SAT 96
--- NOTE | 2021-01-06 19:39 | PC.NURSE ---
[id number] GURVINDER FOR REPORT
[2021-01-06 20:19] VITALS: PULSE 76; O2SAT 95
[2021-01-06] MEDS: Fluticasone Propionate 100 MCG BLST.W.DEV 1 PUFF INHALE (20:19)
[2021-01-06 20:59] VITALS: BP 136/68; PULSE 81; RESP 19; TEMP 36.4; O2SAT 98
[2021-01-06] MEDS: QUEtiapine Fumarate 50 MG TABLET PO (21:32)
[2021-01-06] MEDS: lamoTRIgine 25 MG TABLET 50 MG PO (21:32)
[2021-01-06] MEDS: Vortioxetine Hydrobromide 10 MG TABLET PO (21:32)
[2021-01-06] MEDS: Benzonatate 100 MG CAPSULE PO (22:06)
[2021-01-07] VITALS (12 sets, daily range): BP systolic 90–106; BP diastolic 47–70; PULSE 67–88; RESP 12–18; TEMP 36.6–37.4; O2SAT 94–98
[2021-01-07] MEDS: 0.9 % Sodium Chloride Flush 3 ML SYRINGE IVFLUSH ×4 (01:28→21:39)
[2021-01-07] MEDS: Fluticasone Propionate 100 MCG BLST.W.DEV 1 PUFF INHALE ×2 (07:20→20:28)
[2021-01-07] MEDS: Albuterol/Iprat 2.5/0.5MG 3 ML AMPUL.NEB INHALE ×4 (07:20→20:28)
[2021-01-07] MEDS: lamoTRIgine 25 MG TABLET 50 MG PO ×2 (09:47→21:28)
[2021-01-07] MEDS: predniSONE 20 MG TABLET 40 MG PO (09:47)
[2021-01-07] MEDS: Vortioxetine Hydrobromide 10 MG TABLET PO ×2 (09:49→21:27)
[2021-01-07] MEDS: Tamsulosin HCL 0.4 MG CAPSULE PO (09:50)
[2021-01-07] MEDS: Multivitamin TABLET 1 TAB PO (09:50)
[2021-01-07] MEDS: Aspirin 81 MG TAB.CHEW PO (09:50)
[2021-01-07] MEDS: QUEtiapine Fumarate 25 MG TABLET PO ×2 (10:05→17:02)
--- NOTE | 2021-01-07 10:34 | MHC.CM.PN ---
spoke with pts jose who is an [employer] she repoprts they reside at [facility] where they have housekeeping,meals etc pt has home 02 dc plan retrun home with
[2021-01-07] MEDS: QUEtiapine Fumarate 50 MG TABLET PO ×2 (12:48→21:28)
--- NOTE | 2021-01-07 15:14 | P.PNIM_ITS ---
Subjective Subjective Date of Service: 01/07/21 Interval History: f/u on sob, had coughing fit overnight lasting hours, relieved with tesalon Review of Systems sob cough Physical Exam Vital Signs: Vital Signs: Last Vital Signs Temp 99.4 F 01/07/21 11:41 Pulse 88 01/07/21 13:28 Resp 14 01/07/21 11:41 BP 106/61 01/07/21 11:41 Pulse Ox 97 01/07/21 11:41 Oxygen Flow Rate 2 01/06/21 10:39 Body Mass Index 27.0 General: AO X 3, no acute distress Resp: rhonchi, no distress CVS: S1,S2,RRR GI: +BS, NT, no distention Skin: No rash Neuro: motor grossly intact Psych: appropriate affect Objective Data Active Medications Acetaminophen (Acetaminophen 325 Mg Tablet) 650 mg PO Q6H PRN PRN Reason: Pain, Mild (Pain Scale 1-3) Albuterol/Ipratropium (Albuterol/Iprat 2.5/0.5mg 3 Ml Ampul.Neb) 3 ml INHALE RQ4H WHILE AWAKE [facility] Last Admin: 01/07/21 13:27 Dose: 3 ml Documented by: BELEM Aspirin (Aspirin 81 Mg Tab.Chew) 81 mg PO DAILY [facility] Last Admin: 01/07/21 09:50 Dose: 81 mg Documented by: VANESSA Atorvastatin Calcium (Atorvastatin Calcium 10 Mg Tablet) 10 mg PO BEDTIME [facility] Benzonatate (Benzonatate 100 Mg Capsule) 100 mg PO TID PRN PRN Reason: Cough Last Admin: 01/06/21 22:06 Dose: 100 mg Documented by: JENNIFER Fluticasone Propionate (Fluticasone Propionate 100 Mcg Blst.W.Dev) 1 puff INHALE RBID [facility] Last Admin: 01/07/21 07:20 Dose: 1 puff Documented by: BELEM Lamotrigine (Lamotrigine 25 Mg Tablet) 50 mg PO BID [facility] Last Admin: 01/07/21 09:47 Dose: 50 mg Documented by: VANESSA Multivitamins/Vitamin C (Multivitamin Tablet) 1 tab PO DAILY [facility] Last Admin: 01/07/21 09:50 Dose: 1 tab Documented by: VANESSA Non-Formulary Medication (Mesalamine) 1.5 gm PO DAILY [facility] Non-Formulary Medication (Tiotropium-Olodaterol [Stiolto Respimat]) 2 puff INHALE DAILY [facility] Pharmacy Consult (Consult Rx Perform Med Rec) 1 each MISCELLANE ONCE PRN PRN Reason: Consult order Prednisone (Prednisone 20 Mg Tablet) 40 mg PO DAILY [facility] Last Admin: 01/07/21 09:47 Dose: 40 mg Documented by: VANESSA Propafenone HCl (Propafenone Hcl 150 Mg Tablet) 225 mg PO BID [facility] Last Admin: 01/07/21 09:47 Dose: 225 mg Documented by: VANESSA Comments: Quetiapine Fumarate (Quetiapine Fumarate 25 Mg Tablet) 25 mg PO DAILY@0900,1700 [facility] Last Admin: 01/07/21 10:05 Dose: 25 mg Documented by: VANESSA Quetiapine Fumarate (Quetiapine Fumarate 50 Mg Tablet) 50 mg PO DAILY@1300,2100 [facility] Last Admin: 01/07/21 12:48 Dose: 50 mg Documented by: VANESSA Sodium Chloride (0.9 % Sodium Chloride Flush 3 Ml Syringe) 3 ml IVFLUSH QSHIFT [facility] Last Admin: 01/07/21 09:50 Dose: 3 ml Documented by: VANESSA Tamsulosin HCl (Tamsulosin Hcl 0.4 Mg Capsule) 0.4 mg PO DAILY [facility] Last Admin: 01/07/21 09:50 Dose: 0.4 mg Documented by: VANESSA Vortioxetine (Vortioxetine Hydrobromide 10 Mg Tablet) 10 mg PO BID [facility] Last Admin: 01/07/21 09:49 Dose: 10 mg Documented by: VANESSA Labs CBC & Chem 7: 01/06/21 11:17 01/06/21 11:17 Microbiology Microbiology Results: Microbiology 01/06/21 12:08 Blood Culture - Preliminary Blood - Venous No growth after 24 hours. 01/06/21 11:17 Blood Culture - Preliminary Blood - Venous No growth after 24 hours. Assessment and Plan (1) COPD (chronic obstructive pulmonary disease): Status: Acute Assessment and Plan: ?80 male with? COPD here with sob increase O2 requirement and will be observed overnight for mild exacerbation of COPD and assessment for home O2 in the morning. Plan: Observe ovenight, bronchodilators by neb, O2. Prednisone ? Continue home meds for chronic issues as? mentioned above. reeval for home O2 tomorrow, robitussin for cough Quality Stroke Does the patient have a stroke diagnosis?: No VTE Prior VTE?: No VTE Risk Level:: Medical - low VTE Device Contraindication: Treatment Not Indicated VTE Drug Contraindication: Treatment Not Indicated
[2021-01-07] MEDS: Atorvastatin Calcium 10 MG TABLET PO (21:27)
[2021-01-08] VITALS (13 sets, daily range): BP systolic 91–106; BP diastolic 57–77; PULSE 64–94; RESP 12–16; TEMP 36.2–37.1; O2SAT 90–956
[2021-01-08] MEDS: 0.9 % Sodium Chloride 1,000 ML 75 ML IVCONT (00:21)
[2021-01-08] MEDS: Tamsulosin HCL 0.4 MG CAPSULE PO (07:28)
[2021-01-08] MEDS: lamoTRIgine 25 MG TABLET 50 MG PO ×2 (07:30→21:21)
[2021-01-08] MEDS: Vortioxetine Hydrobromide 10 MG TABLET PO ×2 (07:30→21:21)
[2021-01-08] MEDS: Multivitamin TABLET 1 TAB PO (07:30)
[2021-01-08] MEDS: predniSONE 20 MG TABLET 40 MG PO (07:31)
[2021-01-08] MEDS: Aspirin 81 MG TAB.CHEW PO (07:31)
[2021-01-08] MEDS: Albuterol/Iprat 2.5/0.5MG 3 ML AMPUL.NEB INHALE ×4 (07:40→19:32)
[2021-01-08] MEDS: Fluticasone Propionate 100 MCG BLST.W.DEV 1 PUFF INHALE ×2 (07:40→19:32)
--- NOTE | 2021-01-08 09:08 | P.PNIM_ITS ---
Subjective Subjective Date of Service: 01/08/21 Interval History: F/u copd ex, feels hoarse, cough is better Review of Systems no fever sob with activity cough Physical Exam Vital Signs: Vital Signs: Last Vital Signs vitals reveiwed Oxygen Flow Rate 2 01/06/21 10:39 Body Mass Index 27.0 General: AO X 3, no acute distress Resp: rhonchi bl CVS: S1,S2,RRR GI: +BS, NT, no distention Skin: No rash Neuro: motor grossly intact Psych: appropriate affect Objective Data Active Medications Acetaminophen (Acetaminophen 325 Mg Tablet) 650 mg PO Q6H PRN PRN Reason: Pain, Mild (Pain Scale 1-3) Albuterol/Ipratropium (Albuterol/Iprat 2.5/0.5mg 3 Ml Ampul.Neb) 3 ml INHALE RQ4H WHILE AWAKE [facility] Last Admin: 01/09/21 07:43 Dose: 3 ml Documented by: PRADEEP Aspirin (Aspirin 81 Mg Tab.Chew) 81 mg PO DAILY [facility] Last Admin: 01/09/21 09:07 Dose: 81 mg Documented by: RADHA Atorvastatin Calcium (Atorvastatin Calcium 10 Mg Tablet) 10 mg PO BEDTIME [facility] Last Admin: 01/08/21 21:21 Dose: 10 mg Documented by: LINDSAY Benzonatate (Benzonatate 100 Mg Capsule) 100 mg PO TID PRN PRN Reason: Cough Last Admin: 01/06/21 22:06 Dose: 100 mg Documented by: JENNIFER Doxycycline Hyclate (Doxycycline Hyclate 100 Mg Tablet) 100 mg PO BID [facility] Last Admin: 01/09/21 09:07 Dose: 100 mg Documented by: RADHA Fluticasone Propionate (Fluticasone Propionate 100 Mcg Blst.W.Dev) 1 puff INHALE RBID [facility] Last Admin: 01/09/21 07:44 Dose: 1 puff Documented by: PRADEEP Guaifenesin (Guaifenesin 100 Mg/5 Ml Liquid) 5 ml PO Q4H PRN PRN Reason: Cough Lamotrigine (Lamotrigine 25 Mg Tablet) 50 mg PO BID [facility] Last Admin: 01/09/21 09:06 Dose: 50 mg Documented by: RADHA Multivitamins/Vitamin C (Multivitamin Tablet) 1 tab PO DAILY [facility] Last Admin: 01/09/21 09:07 Dose: 1 tab Documented by: RADHA Patient Own Medication ( Tiotropium- Olodaterol [Stiolto Respimat] 2.5-2.5 Mcg/Actuation) 2 each INHALE DAILY [facility] Last Admin: 01/08/21 07:32 Dose: 2 each Documented by: VANESSA Patient Own Medication ( Mesalamine 0.375 Gram Capsule, Extended Release 24hr) 4 each PO DAILY [facility] Last Admin: 01/09/21 09:06 Dose: Not Given Documented by: RADHA Non-Admin Reason: Med Not Available Pharmacy Consult (Consult Rx Perform Med Rec) 1 each MISCELLANE ONCE PRN PRN Reason: Consult order Prednisone (Prednisone 20 Mg Tablet) 40 mg PO DAILY [facility] Last Admin: 01/09/21 09:05 Dose: 40 mg Documented by: RADHA Propafenone HCl (Propafenone Hcl 150 Mg Tablet) 225 mg PO BID [facility] Last Admin: 01/09/21 09:06 Dose: 225 mg Documented by: RADHA Quetiapine Fumarate (Quetiapine Fumarate 25 Mg Tablet) 25 mg PO DAILY@0900,1700 [facility] Last Admin: 01/08/21 18:13 Dose: 25 mg Documented by: VANESSA Quetiapine Fumarate (Quetiapine Fumarate 50 Mg Tablet) 50 mg PO DAILY@1300,2100 [facility] Last Admin: 01/08/21 21:21 Dose: 50 mg Documented by: LINDSAY Sodium Chloride (0.9 % Sodium Chloride Flush 3 Ml Syringe) 3 ml [facility] Last Admin: 01/09/21 09:06 Dose: 3 ml Documented by: RADHA Tamsulosin HCl (Tamsulosin Hcl 0.4 Mg Capsule) 0.4 mg PO DAILY [facility] Last Admin: 01/09/21 09:07 Dose: 0.4 mg Documented by: RADHA Vortioxetine (Vortioxetine Hydrobromide 10 Mg Tablet) 10 mg PO BID [facility] Last Admin: 01/09/21 09:06 Dose: 10 mg Documented by: RADHA Labs CBC & Chem 7: 01/06/21 11:17 01/06/21 11:17 Microbiology Microbiology Results: Microbiology 01/06/21 12:08 Blood Culture - Preliminary Blood - Venous No growth after 48 hours. 01/06/21 11:17 Blood Culture - Preliminary Blood - Venous No growth after 48 hours. Assessment and Plan (1) COPD (chronic obstructive pulmonary disease): Status: Acute Assessment and Plan: ?80 male with? COPD here with sob increase O2 requirement and will be observed overnight for mild exacerbation of COPD and assessment for home O2 in the morning. Plan: Observe ovenight, bronchodilators by neb, O2. Prednisone ? Continue home meds for chronic issues as? mentioned above. reeval for home O2, robitussin for cough.. home tomorrow Late entry note for 01/08/21 Quality Stroke Does the patient have a stroke diagnosis?: No VTE Prior VTE?: No VTE Risk Level:: Medical - low VTE Device Contraindication: Treatment Not Indicated VTE Drug Contraindication: Treatment Not Indicated
[2021-01-08] MEDS: QUEtiapine Fumarate 25 MG TABLET PO ×2 (09:16→18:13)
[2021-01-08] MEDS: QUEtiapine Fumarate 50 MG TABLET PO ×2 (15:34→21:21)
[2021-01-08] MEDS: 0.9 % Sodium Chloride Flush 3 ML SYRINGE IVFLUSH ×2 (18:15→21:26)
[2021-01-08] MEDS: Atorvastatin Calcium 10 MG TABLET PO (21:21)
[2021-01-09 03:31] VITALS: BP 85/47; PULSE 73; RESP 16; TEMP 36.2; O2SAT 93
[2021-01-09 03:48] VITALS: BP 103/67
[2021-01-09] MEDS: Albuterol/Iprat 2.5/0.5MG 3 ML AMPUL.NEB INHALE ×2 (07:43→11:22)
[2021-01-09] MEDS: Fluticasone Propionate 100 MCG BLST.W.DEV 1 PUFF INHALE (07:44)
[2021-01-09 07:54] VITALS: BP 101/58; PULSE 73; RESP 14; TEMP 36.3; O2SAT 97
[2021-01-09] MEDS: predniSONE 20 MG TABLET 40 MG PO (09:05)
--- NOTE | 2021-01-09 09:05 | P.DS_ITS ---
DS: Providers Provider Date of Service: 01/09/21 Date of admission: 01/06/21 15:31 Primary care physician: Savita Metcalf MD DS: Diagnosis Discharge Diagnosis (1) COPD (chronic obstructive pulmonary disease): Status: Acute DS: Summary Hospital Course Hospital Course: 80 year male with with among other COPD on O2 at 3l at night, mild dementia, afib that is rate controlled, HLD..He was seen in the ED on 01/03 with sob breath and was discharged to follow up with pulmonary clinic which she did today with Dr. Farnsworth and was subsequently sent to be evaluated in ED as he was also needing oxygen during the day. He has no cough, no fever..there has not being documentation of hypoxia here. CTA showed no PE, just some bronchial wall thickening.? Hospital course: Patient presented with sob and found to have exacerbation of copd and treated with steroid, bronchodilator by Nebulizer. He has signficant drop in oxygen upon ambulation and therefore needs oxygen with activity. 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 Farnsworth Time Spent with Patient Time attestation: Total time spent providing and/or coordinating discharge services: Discharge coordination time: Greater than 30 minutes Quality: Stroke Does the patient have a stroke diagnosis?: No Physical Exam Vital Signs: Vital Signs: Last Vital Signs Temp 97.4 F 01/09/21 07:54 Pulse 73 01/09/21 07:54 Resp 14 01/09/21 07:54 BP 101/58 L 01/09/21 07:54 Pulse Ox 97 01/09/21 07:54 Oxygen Flow Rate 2 01/06/21 10:39 Body Mass Index 27.0 DS: Data Data Completed and Pending Labs on day of discharge: Preliminary micro results at discharge 01/06/21 12:08 Blood Culture - Preliminary Blood - Venous No growth after 48 hours. 01/06/21 11:17 Blood Culture - Preliminary Blood - Venous No growth after 48 hours. Discharge Plan Discharge Anticipated Discharge Date/Time: 01/09/21 08:59 Patient Disposition: Home, Self-Care Discharge Diagnosis: COPD exacerbation Referrals: Savita Metcalf MD [Primary Care Provider] - 1 Week Discharge Medications: New prednisone 20 mg tablet 20 mg PO DAILY Qty: 3 RF: 0 Continued prednisone 20 mg tablet 40 mg PO DAILY Qty: 10 RF: 0 doxycycline hyclate 100 mg tablet 100 mg PO BID Qty: 20 RF: 0 azithromycin [Zithromax] 250 mg tablet 250 mg PO DAILY 4 Days Qty: 4 RF: 0 multivitamin Tablet 1 tab PO DAILY RF: 0 aspirin [Baby Aspirin] 81 mg Tablet,Chewable 81 mg PO DAILY RF: 0 atorvastatin 10 mg tablet 10 mg PO DAILY RF: 0 lamotrigine 25 mg tablet 50 mg PO BID RF: 0 quetiapine 25 mg tablet 25 mg PO DAILY@0900,1700 RF: 0 tamsulosin 0.4 mg capsule 0.4 mg PO DAILY RF: 0 Trintellix 10 mg tablet 10 mg PO BID RF: 0 mesalamine 0.375 gram capsule,extended release 24hr 1.5 g PO QAM RF: 0 quetiapine 50 mg tablet 50 mg PO DAILY@1300,2100 RF: 0 propafenone 225 mg tablet 225 mg PO BID RF: 0 Flovent HFA 110 mcg/actuation HFA aerosol inhaler 1 puff inhalation BID Qty: 12 RF: 11 albuterol sulfate 90 mcg/actuation HFA aerosol inhaler 2 inh inhalation Q6H PRN (Reason: shortness of breath or wheezing) 30 Days Qty: 18 RF: 12 Stiolto Respimat 2.5-2.5 mcg/actuation mist 2 puff inhalation DAILY 30 Days Qty: 4 RF: 11 Discharge Orders: Discharge Order (Routine); Ordered 01/09/21 Ordered By: Jerad Arana Diet: advance to usual diet Activity on Discharge: As tolerated Stand Alone Forms: Patient Portal Discharge page Care Plan Goals: prevent rehospitalization and control of copd Health Concerns: Oxygen dependent COPD Plan of Treatment: Use inhalers, take steroid and use oxygen as directed and follow up with your Doctor and lung doctor in a week Assessment: As above
[2021-01-09] MEDS: 0.9 % Sodium Chloride Flush 3 ML SYRINGE IVFLUSH (09:06)
[2021-01-09] MEDS: Vortioxetine Hydrobromide 10 MG TABLET PO (09:06)
[2021-01-09] MEDS: lamoTRIgine 25 MG TABLET 50 MG PO (09:06)
[2021-01-09] MEDS: Multivitamin TABLET 1 TAB PO (09:07)
[2021-01-09] MEDS: Aspirin 81 MG TAB.CHEW PO (09:07)
[2021-01-09] MEDS: Tamsulosin HCL 0.4 MG CAPSULE PO (09:07)
[2021-01-09] MEDS: QUEtiapine Fumarate 25 MG TABLET PO (09:10)
[2021-01-09 11:24] VITALS: O2SAT 96
== END 2021-01-09 12:34 | disposition home or self-care (01) | DRG 192 ==
LOC: HO.ED 13:14 → HO.EDOVER 15:39 → HO.S3 18:40
PROVIDERS: Admitting Provider Internal Medicine; Emergency Provider Emergency Medicine; PCP Internal Medicine; Visit Provider Internal Medicine
DX: J44.1 Chronic obstructive pulmonary disease with (acute) exacerbation (principal); F03.90 Unspecified dementia, unspecified severity, without behavioral disturbance, psychotic disturbance, mood disturbance, and anxiety; I48.91 Unspecified atrial fibrillation; E78.5 Hyperlipidemia, unspecified; Z99.81 Dependence on supplemental oxygen; Z20.822 Contact with and (suspected) exposure to COVID-19; Z88.2 Allergy status to sulfonamides; Z79.51 Long term (current) use of inhaled steroids; Z79.82 Long term (current) use of aspirin; Z79.899 Other long term (current) drug therapy
CPT/HCPCS: 36415; 71045; 71275; 80048; 80076; 83605; 83880; 84484; 85025; 85379; 85610; 87040; 87635; 93005; 94640; 96365; 96367; 96375; 99212; 99225; 99284; 99285; J0456; J0696; J2930; Q9967

== ENCOUNTER → 2021-01-23 13:45 | Outpatient (BNVA) | payer MEDICARE, OTHER, SELFPAY | PROVIDERS: PCP Internal Medicine; Visit Provider Hospitalist | DX: J44.9 Chronic obstructive pulmonary disease, unspecified (principal); J96.11 Chronic respiratory failure with hypoxia; S22.42XS Multiple fractures of ribs, left side, sequela | CPT/HCPCS: 99212 ==

== ENCOUNTER → 2021-02-10 13:34 | Outpatient (BNVA) | payer MEDICARE, OTHER, SELFPAY | PROVIDERS: PCP Internal Medicine; Visit Provider Hospitalist | DX: J44.9 Chronic obstructive pulmonary disease, unspecified (principal); J96.11 Chronic respiratory failure with hypoxia | CPT/HCPCS: 96372; 99212; J2930 ==

== ENCOUNTER → 2021-04-24 13:49 | Outpatient (BNVA) | payer MEDICARE, OTHER, SELFPAY | PROVIDERS: PCP Internal Medicine; Visit Provider Hospitalist | DX: J44.9 Chronic obstructive pulmonary disease, unspecified (principal); J96.11 Chronic respiratory failure with hypoxia; R91.8 Other nonspecific abnormal finding of lung field | CPT/HCPCS: 94618; 99212 ==

== ENCOUNTER 2021-05-17 18:22 | Emergency (ER) | payer MEDICARE, OTHER, SELFPAY ==
--- NOTE | 2021-05-17 | ECG_ITS ---
Test Reason : Syncope Blood Pressure : / mmHG Vent. Rate : 068 BPM Atrial Rate : 068 BPM P-R Int : 190 ms QRS Dur : 114 ms QT Int : 400 ms P-R-T Axes : 067 122 065 degrees QTc Int : 425 ms Normal sinus rhythm Right axis deviation Low voltage QRS Abnormal ECG When compared with ECG of 06-JAN-2021 11:27, Non-specific change in ST segment in Anterior leads Referred By: Generic ED Physician Electronically Signed By:EMMA FROST MD
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
--- NOTE | ~2021-05-17 | XR_ITS ---
EXAMINATION: XR PELVIS CLINICAL INFORMATION: Fall, pelvic pain. Evaluate for fracture. COMPARISON: No similar priors. TECHNIQUE: AP view of the pelvis. FINDINGS: No acute fractures or malalignment. The femoral heads are well-seated in their respective acetabula. Moderate degenerative osteoarthritis in both hips with joint space narrowing and subcortical sclerosis. Sacroiliac joints are symmetric. Pubic symphysis is preserved. Normal appearance of the soft tissues. No unexpected foreign bodies. XR/XR pelvis 1-2V IMPRESSION: No acute fractures or malalignment.
--- NOTE | ~2021-05-17 | XR_ITS ---
EXAMINATION: XR SHOULDER, RIGHT CLINICAL INFORMATION: Fall, right shoulder pain. Evaluate for fracture. COMPARISON: CTA of the chest dated from 01/06/2021. TECHNIQUE: Three views of the right shoulder. FINDINGS: No acute fractures or malalignment. The humeral head is well-seated in the glenoid. The acromioclavicular joint is maintained. The coracoid process is intact. Right-sided clavicle is within normal limits. No evidence of acutely displaced rib fractures in the visualized right-sided ribs. Surgical sutures in the right upper lobe with a background of emphysematous changes and parenchymal scarring. There are however increased airspace opacities in the right middle and lower lobes when compared to the director employment from the CT from 01/06/2021. XR/XR shoulder RT min 2V IMPRESSION: No acute fractures or malalignment. Increased patchy airspace opacities in the right lung. Correlate with a dedicated chest radiograph or chest CT.
[2021-05-17 18:28] VITALS: BP 114/76; PULSE 69; RESP 18; TEMP 36.6; O2SAT 97; BMI 28.5
[2021-05-17] MEDS: ondansetron HCL 4 MG/2 ML VIAL IVPUSH (21:21)
[2021-05-17] MEDS: Morphine Sulfate 4 MG/ML CARTRIDGE 2 MG IVPUSH (21:21)
[2021-05-17 22:12] VITALS: BP 112/64; PULSE 68; RESP 13; TEMP 36.6; O2SAT 95
--- NOTE | 2021-05-17 22:21 | ED.FALL ---
HPI - Fall General Chief Complaint: Fall Stated Complaint: syncope/fall Time Seen by Provider: 05/17/21 18:36 Related Data Home Medications Medication Instructions Recorded Confirmed atorvastatin 10 mg tablet 10 mg PO DAILY 11/29/20 02/10/21 lamotrigine 25 mg tablet 50 mg PO BID 11/29/20 02/10/21 propafenone 225 mg tablet 225 mg PO BID 11/29/20 02/10/21 quetiapine 25 mg tablet 25 mg PO DAILY@0900,1700 11/29/20 02/10/21 quetiapine 50 mg tablet 50 mg PO DAILY@1300,2100 11/29/20 02/10/21 tamsulosin 0.4 mg capsule 0.4 mg PO DAILY 11/29/20 02/10/21 vortioxetine 10 mg tablet 10 mg PO BID 11/29/20 02/10/21 (Trintellix) aspirin 81 mg chewable tablet 81 mg PO DAILY 01/06/21 02/10/21 multivitamin 1 tab PO DAILY 01/06/21 02/10/21 mesalamine 0.375 gram 1.5 g PO QAM 01/23/21 02/10/21 capsule,extended release 24 hr mirabegron 50 mg tablet,extended 50 mg PO QAM 04/24/21 release 24 hr (Myrbetriq) Previous Rx's Medication Instructions Recorded albuterol sulfate 90 mcg/actuation 2 inh INHALATION Q6H PRN 30 Days 11/29/20 aerosol inhaler #18 g fluticasone propionate 110 1 puff INHALATION BID #12 g 11/29/20 mcg/actuation HFA aerosol inhaler (Flovent HFA) tiotropium 2.5 mcg-olodaterol 2.5 2 puff INHALATION DAILY 30 Days #4 11/29/20 mcg/actuation mist for inhalation g (Stiolto Respimat) ipratropium 0.5 mg-albuterol 3 mg 3 ml INHALATION QID 30 Days #360 ml 02/20/21 (2.5 mg base)/3 mL nebulization soln fluticasone propionate 110 2 puff INHALATION BID 30 Days #12 g 04/24/21 mcg/actuation HFA aerosol inhaler (Flovent HFA) theophylline 300 mg 300 mg PO Q12H 30 Days #60 tab 03/07/22 tablet,extended release,12 hr Allergies Allergy/AdvReac Type Severity Reaction Status Date / Time Sulfa (Sulfonamide Allergy Severe Hives/Rash Verified 04/24/21 14:25 Antibiotics) trospium Allergy Severe Constipatio Verified 04/24/21 14:25 n Adhesive Tape Allergy Severe Rash Uncoded 04/24/21 14:25 PMF Past Medical History Medical History (Updated 05/17/21 @ 22:26 by Logan Suh MD) Acute and chronic respiratory failure Acute Crohn's disease Atrial fibrillation BPH (benign prostatic hyperplasia) Chest pain Chronic respiratory failure COPD (chronic obstructive pulmonary disease) case management patient Dementia Hyperlipidemia Hypertension Osteoarthritis Pneumonia Pulmonary nodules Rib fractures Seizure Skin cancer Family History Family History (Updated 01/06/21 @ 15:20 by Jerad Arana MD) Father ALS (amyotrophic lateral sclerosis) Brother ALS (amyotrophic lateral sclerosis) Social History Social History Patient Tobacco Use Status: Former Tobacco user Tobacco use type: Cigarette Years Smoked: 11 years ago Advance Directives: No Advance Directives Information Provided: No service: No Physical Exam Vital Signs: Vital Signs: Last Vital Signs Temp 97.8 F 05/17/21 22:12 Pulse 68 05/17/21 22:12 Resp 13 05/17/21 22:12 BP 112/64 05/17/21 22:12 Pulse Ox 95 05/17/21 22:12 Oxygen Flow Rate 3 05/17/21 18:28 BMI result Body Mass Index 28.5 Discharge Plan Discharge Clinical Impression: Fall, Head injury, Contusion of right shoulder, Contusion of hip, right Patient Disposition: Home, Self-Care Instructions: Contusion in Adults (ED), Head Injury (ED) Additional Instructions: The x-ray your pelvic bones revealed no fracture/broken bones. The x-ray of your right shoulder revealed no fracture/broken bones The CT scan of your head and neck did not reveal any broken fracture/ broken bones or bleeding. The CT scan of your neck did reveal the following incidental finding:?Asymmetric enlargement and heterogeneity of the inferior pole of the left lobe of the thyroid. Recommend correlation with a nonemergent thyroid ultrasound. Based on what you told me, this sounds like a problem that you doctor is aware of, however you should discuss this CT scan finding with your doctor to decide if you need a repeat ultrasound of your thyroid. Take ibuprofen 200 mg pills, 2 pills every 6 hours as needed for pain. Take Tylenol (acetaminophen) 500 mg pills, 2 pills every 4 to 6 hours as needed for pain. Follow-up with your doctor in 2 days. Please return to the emergency department if your symptoms get worse or if you develop any symptoms that are concerning to you. Prescriptions: No Action ipratropium-albuterol 0.5 mg-3 mg(2.5 mg base)/3 mL solution for nebulization 3 ml inhalation QID 30 Days Qty: 360 11RF theophylline 300 mg tablet extended release 12 hr 300 mg PO Q12H 30 Days Qty: 60 6RF multivitamin Tablet 1 tab PO DAILY 0RF aspirin 81 mg Tablet,Chewable 81 mg PO DAILY 0RF atorvastatin 10 mg tablet 10 mg PO DAILY 0RF lamotrigine 25 mg tablet 50 mg PO BID 0RF quetiapine 25 mg tablet 25 mg PO DAILY@0900,1700 0RF tamsulosin 0.4 mg capsule 0.4 mg PO DAILY 0RF Trintellix 10 mg tablet 10 mg PO BID 0RF quetiapine 50 mg tablet 50 mg PO DAILY@1300,2100 0RF propafenone 225 mg tablet 225 mg PO BID 0RF Flovent HFA 110 mcg/actuation HFA aerosol inhaler 1 puff inhalation BID Qty: 12 11RF albuterol sulfate 90 mcg/actuation HFA aerosol inhaler 2 inh inhalation Q6H PRN (Reason: shortness of breath or wheezing) 30 Days Qty: 18 12RF Stiolto Respimat 2.5-2.5 mcg/actuation mist 2 puff inhalation DAILY 30 Days Qty: 4 11RF mesalamine 0.375 gram capsule,extended release 24hr 1.5 g PO QAM 0RF Myrbetriq 50 mg tablet extended release 24 hr 50 mg PO QAM 0RF Flovent HFA 110 mcg/actuation HFA aerosol inhaler 2 puff inhalation BID 30 Days Qty: 12 11RF
[2021-05-17] MEDS: Acetaminophen 325 MG TABLET 975 MG PO (22:30)
[2021-05-17] MEDS: Ibuprofen 400 MG TABLET PO (22:30)
== END 2021-05-18 00:53 | disposition home or self-care (01) ==
PROVIDERS: Emergency Provider Emergency Medicine Emergency Medical Services; PCP Internal Medicine
DX: S40.011A Contusion of right shoulder, initial encounter (principal); S70.01XA Contusion of right hip, initial encounter; R55 Syncope and collapse; M25.511 Pain in right shoulder; W01.0XXA Fall on same level from slipping, tripping and stumbling without subsequent striking against object, initial encounter; Y93.9 Activity, unspecified; Y92.9 Unspecified place or not applicable; Y99.9 Unspecified external cause status; Z79.899 Other long term (current) drug therapy
CPT/HCPCS: 70450; 72125; 72170; 73030; 93005; 96374; 96375; 99284; J2270; J2405

== ENCOUNTER → 2021-06-05 13:57 | Outpatient (BNVA) | payer MEDICARE, OTHER, SELFPAY | PROVIDERS: PCP Internal Medicine; Visit Provider Hospitalist | DX: J44.9 Chronic obstructive pulmonary disease, unspecified (principal); J96.10 Chronic respiratory failure, unspecified whether with hypoxia or hypercapnia ==

== ENCOUNTER 2021-06-05 14:35 | Outpatient (REF) | payer MEDICARE, OTHER, SELFPAY ==
[2021-06-05 14:55] LABS: MANUAL DIFF FLAG NO
[2021-06-05 15:16] LABS: ABG Refer to POC result
[2021-06-05 15:19] LABS: ABG pCO2 33 mmHg (32-45); ABG pH 7.49 (7.35-7.45); ABG pO2 91 mmHg (83-108)
[2021-06-05 15:20] LABS: ABG HCO3 25 mmol/L (22-26)
[2021-06-05 15:22] LABS: Basophils Absolute Auto 0.1 X10*3/uL (0.0-0.2); Basophils Percent Auto 0.8 % (0-2); Eosinophils Absolute Auto 0.4 X10*3/uL (0.0-0.4); Eosinophils Percent Auto 5.2 % (0-4); Hemoglobin 15.6 g/dl (14.0-18.0); Imm Gran Abs Auto 0.03 X10*3/uL (0.00-0.03); Imm Gran Pct Auto 0.4 % (0.0-0.4); Lymphocytes Absolute Auto 1.4 X10*3/uL (1.2-4.9); Lymphocytes Percent Auto 17.2 % (20-40); Mean Corpuscular HGB Conc 31.8 g/dl (31.0-36.0); Mean Corpuscular Hemoglobin 31.5 pg (27.0-33.0); Mean Platelet Volume 9.4 fL (9.4-12.4); Monocytes Absolute Auto 0.7 X10*3/uL (0.1-1.2); Neutrophils Absolute Auto 5.4 x10*3/uL (2.0-8.3); Neutrophils Percent Auto 67.4 % (45-73); Platelet Count 215 X10*3/uL (160-400); Red Blood Count 4.95 X10*6/uL (4.60-5.80); Red Cell Distribution Width 13.2 % (11.0-16.0)
[2021-06-05 16:43] LABS: Anion Gap 13 (12-20); Blood Urea Nitrogen 18 mg/dL (9-16); Calcium 9.8 mg/dL (8.4-10.2); Carbon Dioxide 29 mmol/L (22-29); Chloride 105 mmol/L (96-108); Estimated Glomerular Filt Rate > 60; Glucose Random 83 mg/dL (60-115); Potassium 4.9 mmol/L (3.3-5.1); Sodium 142 mmol/L (135-145)
--- NOTE | 2021-06-05 17:20 | PFT_ITS ---
Forced vital capacity moderately decreased. FEV1 is markedly decreased. FEV1/FVC ratio 58. [id number] is 24. MVV 54%. Post bronchodilator therapy, there is no significant change. Total lung capacity 63%, RV 64%. Diffusion capacity 36%. CONCLUSION: Severe obstructive airway disorder. No response to bronchodilator therapy. Also there is moderate degree of restrictive pulmonary disorder. Clinical correlation recommended. MD XAVIER Chan/MODL / [id number]
[2021-06-06 07:36] LABS: Theophylline < 0.8
== END 2021-06-05 14:36 | disposition home or self-care (01) ==
LOC: HO.RESP 14:35
PROVIDERS: PCP Internal Medicine; Visit Provider Hospitalist
DX: J44.9 Chronic obstructive pulmonary disease, unspecified (principal); R91.8 Other nonspecific abnormal finding of lung field
CPT/HCPCS: 36415; 80048; 80198; 82803; 85025; 94060; 94727; 94729; 99212

== ENCOUNTER 2021-11-08 11:08 | Outpatient (REF) | payer MEDICARE, OTHER, SELFPAY ==
--- NOTE | ~2021-11-08 | XR_ITS ---
EXAMINATION: XR CHEST CLINICAL INFORMATION: Abnormal lung findings. COMPARISON: January 06, 2021 and January 03, 2021 TECHNIQUE: 2 views of the chest were obtained. FINDINGS: Patient is status post bilateral lung surgery with suture lines seen within the upper hemithoraces bilaterally. There is chronic pleural-parenchymal scarring present within the lower lungs. There appears to be bullous change within the upper lobes bilaterally. No pneumothorax identified. No significant pleural effusion. There are some bilateral calcified pleural plaques. Patient status post median sternotomy. Heart normal size. No evidence of pulmonary edema. XR/XR chest 2V IMPRESSION: Bilateral postsurgical change with no definite acute findings.
== END 2021-11-08 11:09 | disposition home or self-care (01) ==
LOC: HO.XRAY 11:08
PROVIDERS: PCP Internal Medicine; Visit Provider Hospitalist
DX: R91.8 Other nonspecific abnormal finding of lung field (principal)
CPT/HCPCS: 71046; 99212

== ENCOUNTER 2022-02-23 16:00 | Emergency (ER) | payer MEDICARE, OTHER, SELFPAY ==
--- NOTE | ~2022-02-23 | XR_ITS ---
EXAMINATION: XR CHEST CLINICAL INFORMATION: Chest pain COMPARISON: Chest x-ray 11/08/2021 TECHNIQUE: Frontal portable view of the chest was obtained. 5:34 PM FINDINGS: Status post median sternotomy. Emphysematous hyperinflation of lungs with chronic coarse lung markings at lung bases and chronic bilateral pleural calcifications. No acute abnormality of chest. No pulmonary vascular congestion. No acute airspace disease. No pleural effusion or pneumothorax. XR/XR chest 1V IMPRESSION: 1. No acute abnormality of chest. 2. Chronic changes of lungs. Status post median sternotomy.
--- NOTE | ~2022-02-23 | CT_ITS ---
EXAMINATION: CT CHEST WITHOUT CONTRAST CLINICAL INFORMATION: Pain, struck in left chest wall . COMPARISON: 01/06/2021 CT scan. TECHNIQUE: Multidetector volumetric imaging was performed from the thoracic inlet through the lung bases without contrast. Sagittal and coronal reformatted images were obtained on the technologist workstation. Soft tissue and lung algorithms evaluated. Thick slab MIP images were performed to increase nodule conspicuity. This CT examination was performed using dose optimization techniques as appropriate, variously including the following: *Automated exposure control *Adjustment of mA and/or kV according to patient size (this includes techniques or standardized protocols for targeted exams where dose is matched to indication/reason for exam; i.e. extremities or head) *Use of iterative reconstruction technique DLP: 316 mGy-cm. FINDINGS: LUNG: Extensive bilateral bullous emphysematous changes are present more so in the upper lobes bilaterally. There are linear regions of calcified scarring with a distribution and appearance similar to the 2020 examination. I do not appreciate any new or suspicious pulmonary nodules superimposed on these extensive chronic changes. MEDIASTINUM: Vascular calcification within the aorta. Shotty mediastinal lymph nodes but no bulky adenopathy. Patient is status post sternotomy CORONARY ARTERY CALCIFICATION: Present PERICARDIUM/PLEURA: No significant effusion. No pleural mass or thickening. THYROID/VISUALIZED LOWER NECK: Unremarkable. CHEST WALL/AXILLA: Subtle subcutaneous stranding seen just to the right of midline in the anterior lower chest as well as a rim calcified soft tissue nodule in the anterior left lower chest. I do not appreciate any evidence for hematoma. VISUALIZED UPPER ABDOMEN: Gallstones. Renal cysts. BONES: Degenerative changes in the spine. I do not appreciate any displaced rib fractures chronic appearing posterior right 11th rib fracture noted. This is not included on the prior CT angiogram study for comparison CT/CT chest wo IV con IMPRESSION: Extensive chronic appearing changes as described above. I do not appreciate any acute bony abnormality. There is subtle subcutaneous stranding in the anterior lower chest wall as well as a rim calcified soft tissue nodule in the anterior left lower chest.
[2022-02-23 16:14] VITALS: BP 116/58; PULSE 67; RESP 18; TEMP 36.5; O2SAT 97; BMI 25.7
--- NOTE | 2022-02-23 16:47 | ECG_ITS ---
Test Reason : CHEST PAIN Blood Pressure : / mmHG Vent. Rate : 064 BPM Atrial Rate : 064 BPM P-R Int : 156 ms QRS Dur : 104 ms QT Int : 390 ms P-R-T Axes : 040 114 061 degrees QTc Int : 402 ms Sinus rhythm with occasional Premature ventricular complexes Right axis deviation Low voltage QRS Abnormal ECG When compared with ECG of 17-MAY-2021 18:32, Premature ventricular complexes are now Present Referred By: Lori Weems Electronically Signed By:YULIANA DURANT
[2022-02-23 18:26] LABS: MANUAL DIFF FLAG NO
[2022-02-23 18:29] LABS: Basophils Percent Auto 0.5 % (0-2); Eosinophils Absolute Auto 0.3 X10*3/uL (0.0-0.4); Eosinophils Percent Auto 3.5 % (0-4); Hematocrit 46.1 % (42.0-52.0); Imm Gran Abs Auto 0.04 X10*3/uL (0.00-0.03); Imm Gran Pct Auto 0.5 % (0.0-0.4); Lymphocytes Absolute Auto 1.4 X10*3/uL (1.2-4.9); Lymphocytes Percent Auto 16.7 % (20-40); Mean Corpuscular HGB Conc 32.5 g/dl (31.0-36.0); Mean Corpuscular Hemoglobin 31.5 pg (27.0-33.0); Mean Corpuscular Volume 96.8 fL (80.0-98.0); Mean Platelet Volume 9.2 fL (9.4-12.4); Monocytes Absolute Auto 0.8 X10*3/uL (0.1-1.2); Monocytes Percent Auto 9.5 % (2-11); Neutrophils Absolute Auto 5.9 x10*3/uL (2.0-8.3); Neutrophils Percent Auto 69.3 % (45-73); Platelet Count 194 X10*3/uL (160-400); Red Blood Count 4.76 X10*6/uL (4.60-5.80); Red Cell Distribution Width 13.6 % (11.0-16.0); White Blood Count 8.5 X10*3/uL (4.8-10.8)
[2022-02-23 18:35] LABS: INTERNATIONAL NORM RATIO 1.2 (0.9-1.1); Prothrombin Time 13.4 SEC (10.0-13.1)
[2022-02-23 18:46] LABS: Alanine Aminotransferase 20 U/L (0-40); Alkaline Phosphatase 75 U/L (39-117); Anion Gap 11 (12-20); Aspartate Amino Transferase 20 U/L (5-37); Bilirubin Total 0.6 mg/dL (0.0-1.0); Blood Urea Nitrogen 16 mg/dL (9-16); Carbon Dioxide 27 mmol/L (22-29); Chloride 108 mmol/L (96-108); Creatinine Clr Calc Pharmacy 61.2; Estimated Glomerular Filt Rate > 60; Glucose Random 110 mg/dL (60-115); Lipase 22 U/L (8-78); Potassium 4.6 mmol/L (3.3-5.1); Sodium 141 mmol/L (135-145); Total Protein 6.8 g/dL (6.5-8.0)
[2022-02-23 18:54] LABS: Troponin-I High Sensitivity < 3.5 ng/L (<3.5-35.0)
[2022-02-23 19:17] LABS: Influenza A PCR NEGATIVE (Negative); Influenza B PCR NEGATIVE (Negative); Resp Syncy Virus RNA Qual PCR NEGATIVE (Negative); SARS COV2 PCR INHOUSE NEGATIVE (Negative)
[2022-02-23 19:21] VITALS: BP 107/72; PULSE 64; RESP 14; TEMP 36.6; O2SAT 97
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
--- NOTE | 2022-02-23 20:47 | PC.NURSE ---
PT WALKING INTO [facility] WITHOUT 4L NC. THIS RN REDIRECTED PT TO ROOM. REPLACED NC, PT PROVIDED WITH URINAL INSTRUCTED HOW TO USE. PT COMPLIANT.
[2022-02-23] MEDS: Acetaminophen 325 MG TABLET 975 MG PO (21:06)
[2022-02-23] MEDS: Lidocaine 4 % Patch ADH..PATCH 1 PATCH TRANSDERMA (21:06)
[2022-02-23 21:45] VITALS: BP 103/54; PULSE 64; RESP 20; TEMP 36.6; O2SAT 96
--- NOTE | 2022-02-23 21:47 | PC.NURSE ---
pt medicated according to may. pt up for discharge. this rn spoke with hospital unit clerk for assistance in booking an ambulance back to assisted living facility.
[2022-02-23 22:07] VITALS: BP 121/66; PULSE 61
--- NOTE | 2022-02-23 22:13 | PC.NURSE ---
this rn attempted to call report to [facility]. unable to get in contact with rn. due to not being within business hours
--- NOTE | 2022-02-23 22:20 | PC.NURSE ---
this rn called pt's to discuss discharge plan. unable to speak with . left message going over discharge instructions. instructed pt's jose to call back with any questions
== END 2022-02-23 22:25 | disposition home or self-care (01) ==
PROVIDERS: Emergency Provider Student in an Organized Health Care Education/Training Program
DX: S20.212A Contusion of left front wall of thorax, initial encounter (principal); Y04.2XXA Assault by strike against or bumped into by another person, initial encounter; Z20.822 Contact with and (suspected) exposure to COVID-19; Y93.9 Activity, unspecified; Y92.099 Unspecified place in other non-institutional residence as the place of occurrence of the external cause; Y99.9 Unspecified external cause status
CPT/HCPCS: 0241U; 71045; 71250; 80053; 83690; 84484; 85025; 85610; 93005; 99284; 99285

== ENCOUNTER → 2022-04-26 15:27 | Outpatient (BNVA) | payer MEDICARE, OTHER, SELFPAY | PROVIDERS: PCP Internal Medicine; Visit Provider Hospitalist | DX: J44.9 Chronic obstructive pulmonary disease, unspecified (principal); J96.11 Chronic respiratory failure with hypoxia; R91.8 Other nonspecific abnormal finding of lung field; Z79.899 Other long term (current) drug therapy | CPT/HCPCS: 99212 ==

== ENCOUNTER 2022-05-07 15:12 | Emergency (ER) | payer MEDICARE, OTHER, SELFPAY ==
[2022-05-07 15:35] VITALS: BP 110/70; BP 98/57; PULSE 60; PULSE 63; RESP 16; TEMP 36.6; O2SAT 98; BMI 25.7
[2022-05-07] MEDS: 0.9 % Sodium Chloride 1,000 ML 999 ML IV (16:42)
[2022-05-07 16:46] LABS: MANUAL DIFF FLAG NO
--- NOTE | 2022-05-07 16:48 | ED.NAVMDI ---
HPI - Nausea/Vomiting/Diarrhea General Chief complaint: Abdominal Pain Stated complaint: nausea vomiting Time Seen by Provider: 05/07/22 16:10 Source: patient Mode of arrival: EMS History of Present Illness HPI Narrative: 81-year-old male with history of COPD and reliant on home oxygen presents via EMS for multiple days of nausea, vomiting, diarrhea. He states that he has had chills but denies any fevers and denies any urinary symptoms. He does complain of some lower abdominal discomfort and states that he has not eaten since yesterday but denies any shortness of breath, chest pain/palpitations. His is also is here with similar symptoms. Related Data Home Medications Medication Instructions Recorded Confirmed atorvastatin 10 mg tablet 10 mg PO DAILY 11/29/20 02/10/21 propafenone 225 mg tablet 225 mg PO BID 11/29/20 02/10/21 quetiapine 25 mg tablet 25 mg PO DAILY@0900,1700 11/29/20 02/10/21 quetiapine 50 mg tablet 50 mg PO DAILY@1300,2100 11/29/20 02/10/21 tamsulosin 0.4 mg capsule 0.4 mg PO DAILY 11/29/20 02/10/21 vortioxetine 10 mg tablet 10 mg PO BID 11/29/20 02/10/21 (Trintellix) aspirin 81 mg chewable tablet 81 mg PO DAILY 01/06/21 02/10/21 multivitamin 1 tab PO DAILY 01/06/21 02/10/21 mesalamine 0.375 gram 1.5 g PO QAM 01/23/21 02/10/21 capsule,extended release 24 hr mirabegron 50 mg tablet,extended 50 mg PO QAM 04/24/21 release 24 hr (Myrbetriq) acetaminophen 325 mg capsule 325 mg PO TID PRN 04/26/22 amoxicillin 500 mg-potassium 1 tab PO BID 04/26/22 clavulanate 125 mg tablet (Augmentin) azithromycin 250 mg tablet 250 mg PO DAILY 04/26/22 divalproex 500 mg tablet,delayed 500 mg PO BID 04/26/22 release docusate sodium 100 mg capsule 100 mg PO DAILY 04/26/22 doxycycline hyclate 100 mg capsule 100 mg PO BID 04/26/22 fexofenadine 60 mg tablet 60 mg PO DAILY 04/26/22 guaifenesin 600 mg tablet, 600 mg PO BID 04/26/22 extended release 12 hr (Mucinex) lactulose 10 gram/15 mL oral 10 g PO DAILY 04/26/22 solution iknettlz-vtv-naaid acid 0.4 1 tab PO DAILY 04/26/22 mg-lycopene 300 mcg-lutein 250 mcg tablet (CertaVite Senior) Previous Rx's Medication Instructions Recorded albuterol sulfate 90 mcg/actuation 2 inh inhalation Q6H PRN shortness 11/29/20 aerosol inhaler of breath or wheezing 30 days #18 grams Flovent HFA 110 mcg/actuation 2 puff inhalation BID 30 days #12 12/26/21 aerosol inhaler (fluticasone grams propionate) tiotropium 2.5 mcg-olodaterol 2.5 2 puff PO DAILY 30 days #4 grams 01/18/22 mcg/actuation mist for inhalation (Stiolto Respimat) ipratropium 0.5 mg-albuterol 3 mg 3 ml inhalation BID 30 days #180 mL 04/27/22 (2.5 mg base)/3 mL nebulization soln nitrofurantoin 100 mg PO Q12H 7 days #14 caps 05/07/22 monohydrate/macrocrystals 100 mg capsule (Macrobid) Allergies Allergy/AdvReac Type Severity Reaction Status Date / Time Sulfa (Sulfonamide Allergy Severe Hives/Rash Verified 04/26/22 15:41 Antibiotics) theophylline Allergy Severe Seizure Verified 04/26/22 15:41 trospium Allergy Severe Constipatio Verified 04/26/22 15:41 n Adhesive Tape Allergy Severe Rash Uncoded 04/26/22 15:41 Review of Systems Review of Systems: Pertinent positives and negatives as stated in HPI [facility] Past Medical History Source: nursing notes reviewed Medical History Acute and chronic respiratory failure Acute Crohn's disease Atrial fibrillation BPH (benign prostatic hyperplasia) Chest pain Chronic respiratory failure COPD (chronic obstructive pulmonary disease) case management patient Dementia Hyperlipidemia Hypertension Osteoarthritis Pneumonia Pulmonary nodules Rib fractures Seizure Skin cancer Family History Family History Father ALS (amyotrophic lateral sclerosis) Brother ALS (amyotrophic lateral sclerosis) Social History Social History Alcohol intake: never Patient Tobacco Use Status: Former Tobacco user Tobacco use type: Cigarette Years Smoked: 11 years ago Smoked in Last 30 Days: No Use of substances other than those prescribed or required for medical reasons: No Advance Directives: No Advance Directives Information Provided: No service: No Physical Exam Vital Signs: Vital Signs: Last Vital Signs Temp 97.5 F 05/07/22 18:33 Pulse 63 05/07/22 18:33 Resp 12 05/07/22 18:33 BP 96/61 05/07/22 18:33 Pulse Ox 99 05/07/22 18:33 O2 Del Method 05/07/22 18:33 O2 Flow Rate 4 05/07/22 18:33 Oxygen Flow Rate 4 05/07/22 15:35 BMI result Body Mass Index 25.7 VITAL SIGNS: Reviewed. GENERAL: Well developed, well nourished, in no acute distress. HEAD: Normocephalic/atraumatic EYES: PERRLA, EOMI OROPHARYNX: no oral lesions noted, posterior pharynx clear, dry mucosa NECK: Supple, no adenopathy LUNGS: Good inspiratory effort, no tachypnea, no wheeze/rhonchi/rales SpO2<98> 4 L home nasal cannula CARDIOVASCULAR: Regular rate and rhythm without noted murmurs, no JVD or lower extremity edema. ABDOMEN: Soft, mild tenderness noted in the lower abdomen, non-distended with bowel sounds. MUSCULOSKELETAL: No tenderness, deformities, or effusions noted on gross inspection. EXTREMITIES: No cyanosis, clubbing or edema. SKIN: Inspection of the skin reveals no rashes NEUROLOGIC: Alert and oriented x 2. Strength and sensation to light touch were grossly intact x 4. Medications Administered Discontinued Medications Generic Name Dose Route Start Last Admin Trade Name Freq PRN Reason Stop Dose Admin Sodium Chloride 1,000 mls @ 999 mls/hr 05/07/22 16:30 05/07/22 17:45 Ns IV 05/07/22 17:30 Infused .Q1H1M CARLEY Infusion Medical Decision Making Medical Decision Making MDM Narrative: 81-year-old male with recent history of what sounds like a viral gastroenteritis, but on review of his documentation has a history of Crohn's, he is afebrile and according to his who is in the department his blood pressure is ?always low?. Review of all investigations my interpretation is that this patient has some associated clinical weakness and fatigue from recent bout of gastroenteritis. He is otherwise hemodynamically stable. Will p.o. challenge and ambulate him at the bedside. 2114: I have reviewed all investigations my interpretation is that patient is feeling much better, ambulating well at bedside and states that he feels better, tolerating oral intake and noted to have a UTI for which he received initial antibiotics here in the emergency room and will be discharged with remaining course. Differential Diagnosis Differential Diagnoses: The differential diagnosis associated with the presentation includes Please see the discussion above Lab Data Please see the discussion above 05/07/22 16:42 05/07/22 16:42 Labs: Lab Results 05/07/22 05/07/22 05/07/22 Range/Units 16:42 17:36 19:38 WBC 4.7 L (4.8-10.8) X10*3/uL RBC 4.75 (4.60-5.80) X10*6/uL Hgb 15.3 (14.0-18.0) g/dl Hct 46.1 (42.0-52.0) % MCV 97.1 (80.0-98.0) fL MCH 32.2 (27.0-33.0) pg MCHC 33.2 (31.0-36.0) g/dl RDW 13.8 (11.0-16.0) % Plt Count 163 (160-400) X10*3/uL MPV 9.5 (9.4-12.4) fL Immature Gran % (Auto) 0.4 (0.0-0.4) % Neut % (Auto) 49.3 (45-73) % Lymph % (Auto) 29.3 (20-40) % Dickinson % (Auto) 14.3 H (2-11) % Eos % (Auto) 5.6 H (0-4) % Baso % (Auto) 1.1 (0-2) % Lymph # (Auto) 1.4 (1.2-4.9) X10*3/uL [place] # (Auto) 0.7 (0.1-1.2) X10*3/uL Eos # (Auto) 0.3 (0.0-0.4) X10*3/uL Baso # (Auto) 0.1 (0.0-0.2) X10*3/uL Abs Immat Gran (auto) 0.02 (0.00-0.03) X10*3/uL Absolute Neuts (auto) 2.3 (2.0-8.3) x10*3/uL Absolute Nucleated RBC 0.000 (0.0-0.012) X10*3/uL Nucleated RBC % (auto) 0.0 (0.0-0.2) /100WBC Sodium 145 (135-145) mmol/L Potassium 4.8 (3.3-5.1) mmol/L Chloride 109 H (96-108) mmol/L Carbon Dioxide 30 H (22-29) mmol/L Anion Gap 11 L (12-20) BUN 12 (9-16) mg/dL Creatinine 0.82 (0.5-1.4) mg/dL Estim Creat Clear Calc 76.2 Estimated GFR > 60 Random Glucose 101 (60-115) mg/dL Calcium 8.5 (8.4-10.2) mg/dL Total Bilirubin 0.8 (0.0-1.0) mg/dL AST 24 (5-37) U/L ALT 24 (0-40) U/L Alkaline Phosphatase 44 (39-117) U/L Total Protein 5.7 L (6.5-8.0) g/dL Albumin 3.4 L (3.5-5.0) g/dL Urine Color Dark Yellow Urine Appearance Cloudy Urine pH 6.0 (5.0-9.0) Ur Specific [place] 1.020 (1.005-1.025) Urine Protein Negative (Neg-Trace) mg/dL Urine Glucose (UA) Negative (Negative) mg/dL Urine Ketones 15 (Negative) mg/dL Urine Blood Negative (Negative) Urine Nitrite Negative (Negative) Ur Leukocyte Esterase Moderate (2+) H (Negative) Urine RBC 0-2 (0-2) /HPF Urine WBC 0-5 (0-5) /HPF Ur Squamous Epith Cells 0-2 (0-2) /HPF Urine Bacteria None Seen (None Seen) Hyaline Casts 0-2 (0-2) /LPF External Record Review External record reviewed: Outpatient record and Prior outpatient labs Chronic Conditions Patient?s care impacted by: Hypertension COPD Critical Care Time Critical Care Time Critical Care Time: Yes Total Critical Care Time: 30 Attestation: I personally attest to this time spent taking care of the patient. Discharge Plan Discharge Clinical Impression: Gastroenteritis, Dehydration, Acute UTI Patient Disposition: Home, Self-Care Instructions: Dehydration (ED), Urinary Tract Infection in Men (ED), Gastroenteritis (ED) Additional Instructions: 1. Resume all home medications as prescribed. 2. Complete the entire course of antibiotics as ordered. 3. Please follow-up with primary care provider next 2-3 days. Return to the ER for any worsening symptoms. Prescriptions: New nitrofurantoin monohyd/m-cryst [Macrobid] 100 mg capsule 100 mg PO Q12H 7 Days Qty: 14 0RF Rx Instructions: must administer with a meal/food No Action Flovent HFA 110 mcg/actuation HFA aerosol inhaler 2 puff inhalation BID 30 Days Qty: 12 11RF Stiolto Respimat 2.5-2.5 mcg/actuation mist 2 puff PO DAILY 30 Days Qty: 4 11RF ipratropium-albuterol 0.5 mg-3 mg(2.5 mg base)/3 mL solution for nebulization 3 ml inhalation BID 30 Days Qty: 180 11RF multivitamin Tablet 1 tab PO DAILY aspirin 81 mg Tablet,Chewable 81 mg PO DAILY atorvastatin 10 mg tablet 10 mg PO DAILY quetiapine 25 mg tablet 25 mg PO DAILY@0900,1700 tamsulosin 0.4 mg capsule 0.4 mg PO DAILY Trintellix 10 mg tablet 10 mg PO BID quetiapine 50 mg tablet 50 mg PO DAILY@1300,2100 propafenone 225 mg tablet 225 mg PO BID albuterol sulfate 90 mcg/actuation HFA aerosol inhaler 2 inh inhalation Q6H PRN (Reason: shortness of breath or wheezing) 30 Days Qty: 18 12RF mesalamine 0.375 gram capsule,extended release 24hr 1.5 g PO QAM Myrbetriq 50 mg tablet extended release 24 hr 50 mg PO QAM acetaminophen 325 mg capsule 325 mg PO TID PRN fexofenadine 60 mg tablet 60 mg PO DAILY azithromycin 250 mg tablet 250 mg PO DAILY Rx Instructions: start on day 2 of therapy CertaVite Senior 0.4 mg-300 mcg- 250 mcg tablet 1 tab PO DAILY docusate sodium 100 mg capsule 100 mg PO DAILY lactulose 10 gram/15 mL solution 10 g PO DAILY amoxicillin-pot clavulanate [Augmentin] 500-125 mg tablet 1 tab PO BID divalproex 500 mg tablet,delayed release (DR/EC) 500 mg PO BID doxycycline hyclate 100 mg capsule 100 mg PO BID guaifenesin [Mucinex] 600 mg tablet extended release 12hr 600 mg PO BID Referrals: Noel Hanson MD [Primary Care Provider] -
[2022-05-07 17:05] LABS: Basophils Absolute Auto 0.1 X10*3/uL (0.0-0.2); Basophils Percent Auto 1.1 % (0-2); Eosinophils Absolute Auto 0.3 X10*3/uL (0.0-0.4); Eosinophils Percent Auto 5.6 % (0-4); Hematocrit 46.1 % (42.0-52.0); Hemoglobin 15.3 g/dl (14.0-18.0); Imm Gran Abs Auto 0.02 X10*3/uL (0.00-0.03); Imm Gran Pct Auto 0.4 % (0.0-0.4); Lymphocytes Absolute Auto 1.4 X10*3/uL (1.2-4.9); Lymphocytes Percent Auto 29.3 % (20-40); Mean Corpuscular HGB Conc 33.2 g/dl (31.0-36.0); Mean Corpuscular Hemoglobin 32.2 pg (27.0-33.0); Mean Corpuscular Volume 97.1 fL (80.0-98.0); Mean Platelet Volume 9.5 fL (9.4-12.4); Monocytes Absolute Auto 0.7 X10*3/uL (0.1-1.2); Monocytes Percent Auto 14.3 % (2-11); Neutrophils Absolute Auto 2.3 x10*3/uL (2.0-8.3); Neutrophils Percent Auto 49.3 % (45-73); Platelet Count 163 X10*3/uL (160-400); Red Blood Count 4.75 X10*6/uL (4.60-5.80); Red Cell Distribution Width 13.8 % (11.0-16.0); White Blood Count 4.7 X10*3/uL (4.8-10.8)
[2022-05-07 18:05] LABS: Alanine Aminotransferase 24 U/L (0-40); Albumin Level 3.4 g/dL (3.5-5.0); Alkaline Phosphatase 44 U/L (39-117); Anion Gap 11 (12-20); Aspartate Amino Transferase 24 U/L (5-37); Bilirubin Total 0.8 mg/dL (0.0-1.0); Blood Urea Nitrogen 12 mg/dL (9-16); Calcium 8.5 mg/dL (8.4-10.2); Carbon Dioxide 30 mmol/L (22-29); Chloride 109 mmol/L (96-108); Creatinine Clr Calc Pharmacy 76.2; Estimated Glomerular Filt Rate > 60; Glucose Random 101 mg/dL (60-115); Potassium 4.8 mmol/L (3.3-5.1); Sodium 145 mmol/L (135-145); Total Protein 5.7 g/dL (6.5-8.0)
[2022-05-07 18:33] VITALS: BP 96/61; PULSE 63; RESP 12; TEMP 36.4; O2SAT 99
[2022-05-07 19:43] LABS: Appearance Urine Cloudy; Color Urine Dark Yellow; Glucose Urine UA Negative (Negative); Leukocyte Esterase Urine Moderate (2+) (Negative); Nitrite Urine Negative (Negative); UMIC TRIGGER UACC YES; Urine Blood Negative (Negative); Urine Ketones 15 mg/dL (Negative); Urine Protein Negative (Neg-Trace)
--- NOTE | 2022-05-07 19:48 | PC.NURSE ---
I took over care of the pt at 1900. Pt was resting quietly in bed with the at the bedside. pt was bladder scanned, per Dr Weems. Bladder scan resulted in 220mL. Pt was able to void 110mL of urine on his own, without needing to straight cath the patient. Urine was sent down to the lab. Pt has been requesting a peanut butter ad jelly sandwich. PO challenge was initiated and pt has been tolerating crackers and edgardo coby without complications. Provider aware.
[2022-05-07 21:04] LABS: Bacteria Urine None Seen (None Seen); Hyaline Casts Urine 0-2 /LPF (0-2); RBC Urine 0-2 /HPF (0-2); Squamous Epithelial Cell Urine 0-2 /HPF (0-2); WBC Urine 0-5 /HPF (0-5)
--- NOTE | 2022-05-07 21:29 | MHC.EDTECH ---
[facility] called at 2121 for a bls transfer back to facility[facility] within the hour.Rn aware
[2022-05-07 21:34] VITALS: BP 94/60; PULSE 61; RESP 12; TEMP 36.6; O2SAT 97
[2022-05-07] MEDS: Nitrofurantoin Monohyd/M-Cryst 100 MG CAPSULE PO (21:39)
--- NOTE | 2022-05-07 21:43 | PC.NURSE ---
Pt ambulated well with tech. cleared pt to go home, waiting ambulance at this time.
--- NOTE | 2022-05-07 22:50 | PC.NURSE ---
Attempted to call Ankush Jefferson at 22:50
== END 2022-05-07 23:03 | disposition home or self-care (01) ==
PROVIDERS: Emergency Provider Student in an Organized Health Care Education/Training Program; PCP Internal Medicine
DX: K52.9 Noninfective gastroenteritis and colitis, unspecified (principal); E86.0 Dehydration; N39.0 Urinary tract infection, site not specified; R11.2 Nausea with vomiting, unspecified; I10 Essential (primary) hypertension; E78.5 Hyperlipidemia, unspecified; I48.91 Unspecified atrial fibrillation; J44.9 Chronic obstructive pulmonary disease, unspecified; J96.10 Chronic respiratory failure, unspecified whether with hypoxia or hypercapnia; Z87.891 Personal history of nicotine dependence; Z99.81 Dependence on supplemental oxygen; Z79.02 Long term (current) use of antithrombotics/antiplatelets; Z79.82 Long term (current) use of aspirin; Z79.899 Other long term (current) drug therapy
CPT/HCPCS: 36415; 51798; 80053; 81001; 85025; 96360; 99284; 99285

== ENCOUNTER 2022-10-25 13:55 | Outpatient (AMB) | payer MEDICARE, OTHER, SELFPAY ==
[2022-10-25 14:06] VITALS: PULSE 72; O2SAT 94; BMI 25.8
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
== END 2022-10-25 14:26 | disposition home or self-care (01) ==
PROVIDERS: PCP Internal Medicine; Visit Provider Hospitalist
DX: J44.9 Chronic obstructive pulmonary disease, unspecified (principal); J96.11 Chronic respiratory failure with hypoxia; R91.8 Other nonspecific abnormal finding of lung field
CPT/HCPCS: 99214

== ENCOUNTER → 2022-10-25 13:55 | Outpatient (BNVA) | payer MEDICARE, OTHER, SELFPAY | PROVIDERS: PCP Internal Medicine; Visit Provider Hospitalist | DX: J44.9 Chronic obstructive pulmonary disease, unspecified (principal); J96.11 Chronic respiratory failure with hypoxia; R91.8 Other nonspecific abnormal finding of lung field | CPT/HCPCS: 99212 ==

== ENCOUNTER 2022-11-01 17:00 | Emergency (ER) | payer MEDICARE, OTHER, SELFPAY ==
--- NOTE | ~2022-11-01 | XR_ITS ---
EXAMINATION: XR CHEST CLINICAL INFORMATION: Fall. COMPARISON: CT chest 02/25/2022. Chest x-ray 02/23/2022 TECHNIQUE: Frontal view of the chest was obtained. 5:55 PM FINDINGS: Severe emphysematous change of lungs. Bilateral pleural plaque calcifications. Status post median sternotomy. No acute airspace disease. No pleural effusion or pneumothorax. Heart size is normal. The cardiac and mediastinal contours are normal. No acute osseous abnormality. XR/XR chest 1V IMPRESSION: No acute abnormality of the chest.
--- NOTE | ~2022-11-01 | CT_ITS ---
EXAMINATION: CT ABDOMEN AND PELVIS WITH CONTRAST CLINICAL INFORMATION: Acute right-sided abdominal pain. COMPARISON: None available. TECHNIQUE: Multidetector volumetric images were obtained from the superior aspect of the liver through the pubic symphysis following administration 85 mL of Omnipaque 350 intravenous contrast. Sagittal and coronal reformatted images were obtained on the technologist's workstation. Oral contrast: No This CT examination was performed using dose optimization techniques as appropriate, variously including the following: *Automated exposure control *Adjustment of mA and/or kV according to patient size (this includes techniques or standardized protocols for targeted exams where dose is matched to indication/reason for exam; i.e. extremities or head) *Use of iterative reconstruction technique DLP: 990.82+4.87+4.87 mGy-cm FINDINGS: LUNG BASES: Marked emphysematous change of lungs. No acute airspace disease or pleural effusion at lung bases. LIVER, GALLBLADDER, AND BILIARY TREE: Several small hepatic cysts. No suspicious liver lesions. No intrahepatic bile duct dilatation. Numerous small dense calcified gallstones in the gallbladder. No acute change of the gallbladder. No gallbladder wall thickening or pericholecystic fluid. No dilatation of bile duct. No calcified stone in the biliary tree. PANCREAS: No acute abnormality. There is no inflammation or mass. There are no pancreatic calcifications. Slight dilatation of the pancreatic duct measuring 2 mm SPLEEN: Unremarkable. ADRENAL GLANDS: Unremarkable. KIDNEYS AND URETERS: The kidneys are normal in size, shape, and attenuation. No hydronephrosis, hydroureter, or calculi seen. No perinephric stranding. Multiple bilateral renal cysts. No follow-up imaging is recommended for simple renal cyst. BLADDER: Unremarkable. GASTROINTESTINAL TRACT: There are numerous diverticula of the sigmoid and left colon. There is no diverticulitis. There is no bowel wall thickening /edema. There is no bowel obstruction. There is a moderate volume of stool in the colon. The appendix is normal . The small bowel loops are unremarkable. The stomach is normal. There is no hiatal hernia. ABDOMINAL WALL: Small fat-containing umbilical hernia. Fat-containing hernia at the anterior superior abdominal wall. Defect in the wall measures 1.5 cm superior-inferior. Herniated fat pocket measures approximately 5 x 5 x 6 cm. LYMPH NODES: Normal. VASCULAR: Vascular calcifications of the abdomen and the pelvis. There is no aneurysm. PELVIC VISCERA: Prostate measures 5.6 cm transverse. Calcification within the prostate. OSSEOUS STRUCTURES: Mild degenerative change of the spine. No acute osseous abnormality. CT/CT abdomen pelvis w IV con IMPRESSION: 1. No acute abnormality CT scan abdomen pelvis. 2. Cholelithiasis. No acute change of the gallbladder. No bile duct dilatation. 3. Diverticulosis of colon. No acute abnormality of the bowel. Fleischner guidelines were followed.
--- NOTE | ~2022-11-01 | CT_ITS ---
EXAMINATION: CT HEAD WITHOUT CONTRAST CLINICAL INFORMATION: Acute injury. COMPARISON: CT head 05/17/2021 TECHNIQUE: Contiguous axial imaging was performed from the skull base to vertex without intravenous administration of contrast. Coronal and sagittal reformatted images are performed at the CT scanner. [This CT examination was performed using dose optimization techniques as appropriate, variously including the following: *Automated exposure control *Adjustment of mA and/or kV according to patient size (this includes techniques or standardized protocols for targeted exams where dose is matched to indication/reason for exam; i.e. extremities or head) *Use of iterative reconstruction technique] DLP: 5.12+657.03 mGy-cm. FINDINGS: There is no evidence of acute intracranial hemorrhage or territorial infarction. No abnormal mass-effect or midline shift is seen. Gibson to white matter differentiation is well preserved. No extra-axial fluid collections are identified. There is generalized global volume loss. There is moderate prominence of the ventricles and the sulci . There is mild hypodensity of the periventricular white matter due to chronic small vessel ischemic disease. There are vascular calcifications of the internal carotid arteries bilaterally. No acute osseous abnormality. Redemonstration of the fluid density expansion at the left olfactory groove at the floor left anterior cranial fossa which remains unchanged since CT head 11/07/2019. Coronal image 45/31 series 13. The mastoid air cells and visualized portions of the paranasal sinuses are well-aerated. CT/CT head/brain wo IV con IMPRESSION: No acute intracranial pathology.
[2022-11-01 17:11] VITALS: BP 107/63; BP 99/63; PULSE 75; PULSE 77; RESP 14; TEMP 37.4; O2SAT 97; BMI 27.1
--- NOTE | 2022-11-01 17:49 | ECG_ITS ---
Test Reason : WEAKNESS Blood Pressure : / mmHG Vent. Rate : 073 BPM Atrial Rate : 073 BPM P-R Int : 170 ms QRS Dur : 106 ms QT Int : 374 ms P-R-T Axes : 065 130 046 degrees QTc Int : 412 ms Normal sinus rhythm Right axis deviation Pulmonary disease pattern Abnormal ECG When compared with ECG of 23-FEB-2022 19:14, Premature ventricular complexes are no longer Present Referred By: Ruslan Kapoor Electronically Signed By:SHASTA GARCIA
--- NOTE | 2022-11-01 17:55 | ED.FALL ---
HPI - Fall General Chief Complaint: Fall Stated Complaint: Diff. breathing, fell after unwit Sz this morning Time Seen by Provider: 11/01/22 17:40 Source: patient, family and EMS Mode of arrival: EMS Limitations: altered mental status History of Present Illness HPI Narrative: 82-year-old male with history of dementia, absent seizures presents with a fall. Patient appears to have history of an unsteady gait. He is post be wheelchair-bound. Is unclear whether the patient failed to remember that he is supposed to be wheelchair-bound or if he was being noncompliant. As result, he did fall. He was sandwiched between the bed rails. He does report hitting his head but no loss of consciousness. Denies any headache, nausea, vomiting. He has reportedly had a cough and voice change but no fevers or chills. There has been no nausea vomiting or diarrhea. Patient reports having right-sided rib pain however, he points to his abdomen. He reports that his pain is [id number]. There is no clear relieving or exacerbating features. Appears to have started today. Related Data Home Medications Medication Instructions Recorded Confirmed atorvastatin 10 mg tablet 10 mg PO DAILY 11/29/20 02/10/21 propafenone 225 mg tablet 225 mg PO BID 11/29/20 02/10/21 quetiapine 25 mg tablet 25 mg PO DAILY@0900,1700 11/29/20 02/10/21 tamsulosin 0.4 mg capsule 0.4 mg PO DAILY 11/29/20 02/10/21 vortioxetine 10 mg tablet 10 mg PO BID 11/29/20 02/10/21 (Trintellix) aspirin 81 mg chewable tablet 81 mg PO DAILY 01/06/21 02/10/21 multivitamin 1 tab PO DAILY 01/06/21 02/10/21 mesalamine 0.375 gram 1.5 g PO QAM 01/23/21 02/10/21 capsule,extended release 24 hr mirabegron 50 mg tablet,extended 50 mg PO QAM 04/24/21 release 24 hr (Myrbetriq) acetaminophen 325 mg capsule 325 mg PO TID PRN 04/26/22 divalproex 500 mg tablet,delayed 500 mg PO BID 04/26/22 release docusate sodium 100 mg capsule 100 mg PO DAILY 04/26/22 fexofenadine 60 mg tablet 60 mg PO DAILY 04/26/22 guaifenesin 600 mg tablet, 600 mg PO BID 04/26/22 extended release 12 hr (Mucinex) lactulose 10 gram/15 mL oral 10 g PO DAILY 04/26/22 solution mpyqxuzt-xhq-urepj acid 0.4 1 tab PO DAILY 04/26/22 mg-lycopene 300 mcg-lutein 250 mcg tablet (CertaVite Senior) Oxygen Home Use 10/25/22 nebulizers 10/25/22 Previous Rx's Medication Instructions Recorded albuterol sulfate 90 mcg/actuation 2 inh inhalation Q6H PRN shortness 11/29/20 aerosol inhaler of breath or wheezing 30 days #18 grams Flovent HFA 110 mcg/actuation 2 puff inhalation BID 30 days #12 12/26/21 aerosol inhaler (fluticasone grams propionate) tiotropium 2.5 mcg-olodaterol 2.5 2 puff PO DAILY 30 days #4 grams 01/18/22 mcg/actuation mist for inhalation (Stiolto Respimat) ipratropium 0.5 mg-albuterol 3 mg 3 ml inhalation BID 30 days #180 mL 04/27/22 (2.5 mg base)/3 mL nebulization soln nitrofurantoin 100 mg PO Q12H 7 days #14 caps 05/07/22 monohydrate/macrocrystals 100 mg capsule (Macrobid) Allergies Allergy/AdvReac Type Severity Reaction Status Date / Time Sulfa (Sulfonamide Allergy Severe Hives/Rash Verified 10/25/22 14:08 Antibiotics) theophylline Allergy Severe Seizure Verified 10/25/22 14:08 trospium Allergy Severe Constipatio Verified 10/25/22 14:08 n Adhesive Tape Allergy Severe Rash Uncoded 10/25/22 14:08 Review of Systems Review of Systems: CONSTITUTIONAL: Denies weight loss, fever and chills. HEENT: Denies changes in vision and hearing. RESPIRATORY: Denies SOB + cough. CV: Denies palpitations + CP. GI: + abdominal pain, denies nausea, vomiting and diarrhea. : Denies dysuria and urinary frequency. MSK: Denies myalgia and joint pain. SKIN: Denies rash and pruritus. NEUROLOGICAL: Denies headache and syncope. PSYCHIATRIC: Denies recent changes in mood. Denies anxiety and depression. All other ROS are negative unless [facility] Past Medical History Medical History Acute and chronic respiratory failure Acute Crohn's disease Atrial fibrillation BPH (benign prostatic hyperplasia) Chest pain Chronic respiratory failure COPD (chronic obstructive pulmonary disease) case management patient Dementia Hyperlipidemia Hypertension Osteoarthritis Pneumonia Pulmonary nodules Rib fractures Seizure Skin cancer Family History Family History Father ALS (amyotrophic lateral sclerosis) Brother ALS (amyotrophic lateral sclerosis) Social History Social History Alcohol intake: never Patient Tobacco Use Status: Former Tobacco user Tobacco use type: Cigarette Years Smoked: 11 years ago Smoked in Last 30 Days: No Use of substances other than those prescribed or required for medical reasons: No Advance Directives: Yes Advance Directives Information Provided: No Advance Directives on File: No service: No Physical Exam Vital Signs: Vital Signs: Last Vital Signs Temp 99.7 F 11/01/22 19:45 Pulse 86 11/01/22 19:45 Resp 16 11/01/22 19:45 BP 108/59 L 11/01/22 19:45 Pulse Ox 95 11/01/22 19:45 O2 Del Method Nasal Cannula 11/01/22 19:45 O2 Flow Rate 2 11/01/22 19:45 Oxygen Flow Rate 2.5 11/01/22 17:11 BMI result Body Mass Index 27.1 GEN: Well developed, no acute distress, alert, oriented HEENT: Normocephalic, atraumatic, normal external ears, nose appears normal, no oropharyngeal edema or exudates Eyes: Normal to appearance Neck: Supple, no lymphadenopathy Respiratory: Talks in complete sentences, no respiratory distress, clear to auscultation bilaterally Cardiovascular: Regular rate and rhythm, no murmurs rubs or gallops Abdomen: Soft, right-sided tenderness, distended, no guarding, no rebound Back: No CVA tenderness Extremities: No clubbing cyanosis or edema Neurologic: No focal neurologic deficits, cranial nerves 2-12 intact, strength is 5/5 bilaterally Skin: No rash Course Course Course Narrative: The workup is complete. There is no evidence of traumatic injury, acute metabolic issues. Patient will be discharged back to extended care facility. was informed of results. She is a nurse practitioner as well. Medications Administered Discontinued Medications Generic Name Dose Route Start Last Admin Trade Name Rachel PRN Reason Stop Dose Admin Acetaminophen 975 mg 11/01/22 17:49 11/01/22 19:59 Acetaminophen 325 Mg Tablet PO 11/01/22 17:50 975 mg ONCE ONE Administration Albuterol Sulfate 2.5 mg 11/01/22 19:11 11/01/22 19:22 Albuterol Sulfate (0.083%) 2.5 Mg/3 Ml Vial.Neb INHALE 11/01/22 19:12 2.5 mg ONCE ONE Administration Iohexol 85 ml 11/01/22 21:07 11/01/22 21:08 Iohexol 350 Mg/Ml 100 Ml Infus..Btl IV 11/01/22 21:08 85 ml ONCE ONE Administration Medical Decision Making Medical Decision Making [facility] Narrative: Patient presents as a fall. Patient denies headache but did hit his head. With his memory deficits, will obtain a CT scan of the head to rule out intracranial bleeding. Differential diagnosis includes concussion as well. Patient also has abdominal tenderness on the right side. Differential diagnosis includes appendicitis, diverticulitis, colitis, cholecystitis, epiploic appendagitis, mesenteric, infection, gastroenteritis. Plan will be to obtain a CT scan the abdomen pelvis to rule out acute pathology. Will treat the patient symptomatically in the meantime. Differential Diagnosis Differential Diagnoses: The differential diagnosis associated with the presentation includes (See above) Admission/Observation Consideration of admission/observation: Escalation of care including admission/observation considered Lab Data [facility] Lab Attestation statement: I reviewed the patient's lab results. 11/01/22 18:32 11/01/22 18:32 Labs: Lab Results 11/01/22 11/01/22 11/01/22 Range/Units 18:32 18:32 19:48 WBC 12.9 H (4.8-10.8) X10*3/uL RBC 4.60 (4.60-5.80) X10*6/uL Hgb 15.3 (14.0-18.0) g/dl Hct 46.3 (42.0-52.0) % MCV 100.7 H (80.0-98.0) fL MCH 33.3 H (27.0-33.0) pg MCHC 33.0 (31.0-36.0) g/dl RDW 13.6 (11.0-16.0) % Plt Count 141 L (160-400) X10*3/uL MPV 10.1 (9.4-12.4) fL Immature Gran % (Auto) 0.3 (0.0-0.4) % Neut % (Auto) 74.4 H (45-73) % Lymph % (Auto) 12.1 L (20-40) % [place] % (Auto) 11.7 H (2-11) % Eos % (Auto) 1.2 (0-4) % Baso % (Auto) 0.3 (0-2) % Lymph # (Auto) 1.6 (1.2-4.9) X10*3/uL [place] # (Auto) 1.5 H (0.1-1.2) X10*3/uL Eos # (Auto) 0.2 (0.0-0.4) X10*3/uL Baso # (Auto) 0.0 (0.0-0.2) X10*3/uL Abs Immat Gran (auto) 0.04 H (0.00-0.03) X10*3/uL Absolute Neuts (auto) 9.6 H (2.0-8.3) x10*3/uL Absolute Nucleated RBC 0.000 (0.0-0.012) X10*3/uL Nucleated RBC % (auto) 0.0 (0.0-0.2) /100WBC Sodium 138 (135-145) mmol/L Potassium 4.0 (3.3-5.1) mmol/L Chloride 106 (96-108) mmol/L Carbon Dioxide 25 (22-29) mmol/L Anion Gap 11 L (12-20) BUN 14 (9-16) mg/dL Creatinine 0.88 (0.5-1.4) mg/dL Estim Creat Clear Calc 69.8 Estimated GFR > 60 Random Glucose 92 (60-115) mg/dL Calcium 9.3 D (8.4-10.2) mg/dL Total Bilirubin 0.8 (0.0-1.0) mg/dL AST 19 (5-37) U/L ALT 18 (0-40) U/L Alkaline Phosphatase 50 (39-117) U/L Total Protein 7.1 (6.5-8.0) g/dL Albumin 3.8 (3.5-5.0) g/dL Lipase 53 (8-78) U/L Urine Color Yellow Urine Appearance Clear Urine pH 6.5 (5.0-9.0) Ur Specific [place] 1.020 (1.005-1.025) Urine Protein Negative (Neg-Trace) mg/dL Urine Glucose (UA) Negative (Negative) mg/dL Urine Ketones 15 (Negative) mg/dL Urine Blood Negative (Negative) Urine Nitrite Negative (Negative) Ur Leukocyte Esterase Trace H (Negative) Urine RBC 0-2 (0-2) /HPF Urine WBC 0-5 (0-5) /HPF Ur Squamous Epith Cells 0-2 (0-2) /HPF Urine Bacteria None Seen (None Seen) Hyaline Casts 0-2 (0-2) /LPF Independent Interpretation I performed an independent interpretation of an: EKG (Normal sinus rhythm heart rate 73, no acute ST elevations depressions, nonspecific ST T wave changes, right axis deviation, low voltage in several leads.), Plain X-Ray and CT Scan (head: NAD, Abd: NAD) Radiology Impression Discussion of test interpretation with radiology: I have reviewed the radiologist's reading. Radiologist Impression: CT/CT abdomen pelvis w IV con IMPRESSION: 1.? No acute abnormality CT scan abdomen pelvis. 2.? Cholelithiasis. No acute change of the gallbladder. No bile duct dilatation. 3.? Diverticulosis of colon. No acute abnormality of the bowel. ? Fleischner guidelines were followed. Dictated By: Bong Carr MD Signed By: <Electronically signed by Bong Carr MD in OV> 11/01/222148 CT/CT head/brain wo IV con IMPRESSION: No acute intracranial pathology. ? ? Dictated By: Bong Carr MD Signed By: <Electronically signed by Bong Carr MD in OV> 11/01/222136 DD/ 21 TD/TT:? Medical Equipment Repair Technician: ANGELICA Independent Historian Clinical information obtained from an independent historian. History obtained from or confirmed by: Spouse and EMS Prescription Management I considered prescription management with: Pain Medication Discharge Plan Discharge Clinical Impression: Fall, Minor head injury, Abdominal pain Patient Disposition: Home, Self-Care Instructions: Abdominal Pain (ED), Fall Prevention (ED), Head Injury (ED) Prescriptions: No Action Flovent HFA 110 mcg/actuation HFA aerosol inhaler 2 puff inhalation BID 30 Days Qty: 12 11RF Stiolto Respimat 2.5-2.5 mcg/actuation mist 2 puff PO DAILY 30 Days Qty: 4 11RF ipratropium-albuterol 0.5 mg-3 mg(2.5 mg base)/3 mL solution for nebulization 3 ml inhalation BID 30 Days Qty: 180 11RF multivitamin Tablet 1 tab PO DAILY aspirin 81 mg Tablet,Chewable 81 mg PO DAILY nitrofurantoin monohyd/m-cryst [Macrobid] 100 mg capsule 100 mg PO Q12H 7 Days Qty: 14 0RF Rx Instructions: must administer with a meal/food atorvastatin 10 mg tablet 10 mg PO DAILY quetiapine 25 mg tablet 25 mg PO DAILY@0900,1700 tamsulosin 0.4 mg capsule 0.4 mg PO DAILY Trintellix 10 mg tablet 10 mg PO BID propafenone 225 mg tablet 225 mg PO BID albuterol sulfate 90 mcg/actuation HFA aerosol inhaler 2 inh inhalation Q6H PRN (Reason: shortness of breath or wheezing) 30 Days Qty: 18 12RF mesalamine 0.375 gram capsule,extended release 24hr 1.5 g PO QAM Myrbetriq 50 mg tablet extended release 24 hr 50 mg PO QAM acetaminophen 325 mg capsule 325 mg PO TID PRN fexofenadine 60 mg tablet 60 mg PO DAILY CertaVite Senior 0.4 mg-300 mcg- 250 mcg tablet 1 tab PO DAILY docusate sodium 100 mg capsule 100 mg PO DAILY lactulose 10 gram/15 mL solution 10 g PO DAILY divalproex 500 mg tablet,delayed release (DR/EC) 500 mg PO BID guaifenesin [Mucinex] 600 mg tablet extended release 12hr 600 mg PO BID (DME) nebulizers [facility] See Rx Instructions .ROUTE Rx Instructions: As directed (DME) Oxygen Home Use Kit See Rx Instructions .ROUTE Rx Instructions: As directed Referrals: Savita Metcalf MD [Primary Care Provider] - 1 week
[2022-11-01 18:21] VITALS: BP 114/72; PULSE 86; RESP 20; O2SAT 95
[2022-11-01 18:36] LABS: MANUAL DIFF FLAG NO
[2022-11-01 18:43] LABS: Basophils Percent Auto 0.3 % (0-2); Eosinophils Absolute Auto 0.2 X10*3/uL (0.0-0.4); Eosinophils Percent Auto 1.2 % (0-4); Hematocrit 46.3 % (42.0-52.0); Hemoglobin 15.3 g/dl (14.0-18.0); Imm Gran Abs Auto 0.04 X10*3/uL (0.00-0.03); Imm Gran Pct Auto 0.3 % (0.0-0.4); Lymphocytes Absolute Auto 1.6 X10*3/uL (1.2-4.9); Lymphocytes Percent Auto 12.1 % (20-40); Mean Corpuscular Hemoglobin 33.3 pg (27.0-33.0); Mean Corpuscular Volume 100.7 fL (80.0-98.0); Mean Platelet Volume 10.1 fL (9.4-12.4); Monocytes Absolute Auto 1.5 X10*3/uL (0.1-1.2); Monocytes Percent Auto 11.7 % (2-11); Neutrophils Absolute Auto 9.6 x10*3/uL (2.0-8.3); Neutrophils Percent Auto 74.4 % (45-73); Platelet Count 141 X10*3/uL (160-400); Red Cell Distribution Width 13.6 % (11.0-16.0); White Blood Count 12.9 X10*3/uL (4.8-10.8)
--- OUTSIDE RECORDS SUMMARY | 2022-11-01 18:48 | XMS_ITS | Continuity of Care Document ---
Author Name Unknown Organization [facility] Address [address], [address], [address] [place] [id number]- Care Team Providers Care Radiology Scheduler Name Role Phone Rosette VILLALOBOS, July A Primary Care Physicia n Encounter [facility] [place] Date(s): 04/06/22 - 05/06/22 [facility] [address], [address], [address] [place] [id number]- Allergies, Adverse Reactions, Alerts Substance Reaction Severity Status Bactrim Rash Active Trospium Chloride Active Immunizations Given and Recorded Vaccine Date Status Refusal Reason SARS-CoV-2 (COVID-19) mRNA-1273 vaccine 08/19/21 R ecorded SARS-CoV-2 (COVID-19) mRNA-1273 vaccine 01/20/21 R ecorded Pneumococcal Vaccine (oldterm) 07/05/08 Given Medications Acetaminophen = 1,000 mg, By Mouth, 2 times a day, PRN as needed for pain, 0 Refills, Maintenance, 10/15/13 14:01:07 Start Date: 10/15/13 Status: Ordered albuterol 2.5mg/3ml 0.083% albuterol 2.5mg/3ml 0.083%, Refills 0, Maintenance, 10/27/15 14:36:48, Compound Start Date: 10/27/15 Status: Ordered albuterol CFC free 90 mcg/inh inhalation aerosol 2, puffs, Inhalation, Every 4 hours, PRN, # 1 each, Refills 0, Tot. Refills 0, Maintenance, 03/24/18 22:08:02 EST, Aerosol, Route to Pharmacy Electronically, [id number], [facility]/pharmacy #[id number], Compound Start Date: 03/24/18 Stop Date: 04/23/18 Status: Ordered aspirin 81 mg oral tablet 1 tablet = 81 mg, By Mouth, Daily, # 30 tablet, 0 Refills, Maintenance, Tablet Start Date: 12/31/12 Status: Ordered Atorvastatin 10 mg, By Mouth, Daily at bedtime, Maintenance, 12/31/12 9:00:34 Start Date: 12/31/12 Status: Ordered Centrum Silver 1 tablet, By Mouth, Daily, 0 Refills, Maintenance Start Date: 09/08/11 Status: Ordered COPD COPD, See Instructions, # 1 units, Refills 0, Tot. Refills 0, Maintenance, Over night pulse oxymetry to evaluate for nocturnal hypoxia and desaturation Diagnosis COPD, URI, chronic hypoxic respiratory failure, 04/02/18 14:15:09 EST, Compound Start Date: 04/02/18 Status: Ordered Depakote 250 mg oral enteric coated tablet 3 tablet = 750 mg, By Mouth, 2 times a day, # 180 tablet, 0 Refills, Maintenance, 03/30/22 21:31:00EST, EC Tablet, Partial fill upon patient request if the prescription is for a schedule II opioid drug. Start Date: 03/30/22 Stop Date: 04/29/22 Status: Ordered Depakote 500 mg oral enteric coated tablet 1 tablet = 500 mg, By Mouth, 2 times a day, # 60 tablet, 5 Refills, Maintenance, 03/25/22 12:35:00 EST, EC Tablet, [facility] 3, Partial fill upon patient request if the prescription is for a schedule II opioid drug., 182, cm, 03/25/22 11:... Start Date: 03/25/22 Status: Ordered divalproex sodium 500 mg oral enteric coated tablet = 500 mg, By Mouth, 2 times a day, 0 Refills, Maintenance, 03/25/22 10:30:00 EST, Tablet, Partial fill upon patient request if the prescription is for a schedule II opioid drug. Start Date: 03/25/22 Status: Ordered docusate sodium 100 mg oral capsule 100 mg, 1, capsule, By Mouth, Daily, Refills 0, Maintenance, 03/20/22 12:57:00 EST, Partial fill upon patient request if the prescription is for a schedule II opioid drug. Start Date: 03/20/22 Status: Ordered Entyvio 300 mg intravenous injection IV Infusion, Every 6 weeks, 0 Refills, Maintenance, 07/12/18 11:02:21 EDT Start Date: 07/12/18 Status: Ordered Flovent 110 mcg Inhaler HFA 2, puffs, Inhalation, Daily, Refills 0, Maintenance, 09/21/19 13:13:00 EDT, Inhaler Start Date: 09/21/19 Status: Ordered Lactulose 0 Refills, Maintenance, 04/02/22 14:56:00 EST, Partial fill upon patient request if the prescription is for a schedule II opioid drug. Start Date: 04/02/22 Status: Ordered mesalamine 0.375 g oral capsule, extended release 4 capsule = 1.5 Gm, By Mouth, Daily in AM, # 120 capsule, 0 Refills, Maintenance, 03/20/22 13:19:00EST, CR Capsule, Partial fill upon patient request if the prescription is for a schedule II opioid drug. Start Date: 03/20/22 Status: Ordered Mucinex 600 mg oral tablet, extended release 1 tablet = 600 mg, By Mouth, Every 12 hours, 0 Refills, Maintenance, 03/20/22 13:18:00 EST, Partialfill upon patient request if the prescription is for a schedule II opioid drug. Start Date: 03/20/22 Status: Ordered Oxygen See Instructions, use as directed as needed, 0 Refills, Maintenance, 10/15/13 14:01:53 Start Date: 10/15/13 Status: Ordered propafenone 150 mg oral tablet 1.5 tablets, By Mouth, 2 times a day, 225mg total dose 2 times daily, 0 Refills, Maintenance, 10/15/13 13:58:01 Start Date: 10/15/13 Status: Ordered QUEtiapine 25 mg oral tablet 50 mg, 2, tablet, By Mouth, Daily at bedtime, Refills 0, Maintenance, 03/20/22 13:46:00 EST, Partial fill upon patient request if the prescription is for a schedule II opioid drug. Start Date: 03/20/22 Status: Ordered QUEtiapine 25 mg oral tablet 75 mg, 3, tablet, By Mouth, Daily, give at 1700, Refills 0, Maintenance, 07/12/18 13:58:49 EDT Start Date: 07/12/18 Status: Ordered QUEtiapine 25 mg oral tablet 37.5 mg, 1.5, tablet, By Mouth, Daily, 1300, Refills 0, Maintenance, 07/12/18 13:59:36 EDT Start Date: 07/12/18 Status: Ordered Stiolto Respimat 2.5 mcg-2.5 mcg inhalation aerosol 2 puffs, Inhalation, Every 24 hours, # 180 inhalation, 0 Refills, Maintenance, 08/24/17 12:08:49 EDT, Aerosol Start Date: 08/24/17 Status: Ordered tamsulosin 0.4 mg oral capsule 0.4 mg, 1, capsule, By Mouth, Daily, # 30 capsule, Refills 0, Maintenance, 09/21/19 13:08:00 EDT Start Date: 09/21/19 Status: Ordered Trintellix 10 mg oral tablet 1 tablet = 10 mg, By Mouth, 2 times a day, # 30 tablet, 0 Refills, Maintenance, 06/10/21 3:29:00 EDT, Tablet, Partial fill upon patient request if the prescription is for a schedule II opioid drug. Start Date: 06/10/21 Status: Ordered Problem List Condition Confirmation Course Effective Dates Status Health St atus Informant Aneurysm of iliac artery Confirmed Active Prostatitis Confirmed 08/29/11 Active Severe sepsis Confirmed 08/29/11 Active Ulcerative colitis Confirmed Active Social History Social History Type Response Smoking Status Former smoker, quit more than 30 days ago entered on: 06/10/21 Sex Patient Care team information Care Team Personnel Name: Henok Causey MD Position: [facility] GI Member Role: Lifetime Consulting Physician Address: Address: [address] [place] [address], [facility] [address] [facility] [place], [place] [address] Name: Linda Samaniego RN Position: [facility] RN Member Role: Primary Care Nurse Name: Rosette VILLALOBOS, July Position: [facility] Physician (General Medicine) Member Role: PCP Address: Address: [address] [place] [address] [address] [place], [place] [address] Name: Laura Thayer RN Position: [facility] RN Member Role: Primary Care Nurse Name: Dot Dumont RN Position: [facility] SN RN Member Role: Primary Care Nurse Name: Avis Coker RN Position: [facility] RN Member Role: Primary Care Nurse Name: Anastacia Mckeon RN Position: [facility] RN Supv Member Role: Primary Care Nurse Name: Laura Barnes RN Position: [facility] RN Member Role: Primary Care Nurse Name: Tacho Wall RN Position: S RN Member Role: Primary Care Nurse Name: Yamileth Guerrero RN Position: [facility] RN Member Role: Primary Care Nurse Name: Iram Medel RN Position: [facility] RN Member Role: Primary Care Nurse Name: Anastacia Valdivia RN Position: [facility] SN RN Member Role: Primary Care Nurse Name: Lisa Pena Position: [facility] RN Member Role: Primary Care Nurse Care Team Related Persons Name: SHARITA PASCUAL Address: home [address] [place] [address] Name: TEJINDER MCDOWELL Address: home [address] [place] [address] Name: JEAN-PAUL VERAGRA Address: home [address] [place] [address]
--- OUTSIDE RECORDS SUMMARY | 2022-11-01 18:48 | XMS_ITS | Continuity of Care Document ---
Author Name Unknown Organization [facility] Address [address] [facility], [address], [address] [place] [id number]- Care Team Providers Care Talcer Name Role Phone Sammi Bonilla Primary Care [id number] Date(s[facility] 06/29/22 - 07/29/22 [facility] [address], [address], [address] [place] [id number] Allergies, Adverse Reactions, Alerts Substance Reaction Severity [...] 22:08:02 EST, Aerosol, Route to Pharmacy Electronically, [id number], [facility]/pharmacy #[id number], Compound Start Date: 03/24/18 [...] Refills, Maintenance, 03/25/22 12:35:00 EST, EC Tablet, [facility], Partial fill upon patient request if [...] Team Personnel Name: Henok Causey MD Position: [facility] GI MD Member Role: Lifetime Consulting Physician Address: Address: [address] [place] [address], [address] [facility] [address] Name: Linda Samaniego RN Position: [facility] RN Member Role: Primary Care Nurse Name: Laura Thayer RN Position: [facility] RN Member Role: Primary Care Nurse Name: Dot Dumont RN Position: [facility] RN Member Role: Primary Care Nurse Name: Avis Coker RN Position: S RN Member Role: Primary Care Nurse Name: Anastacia Mckeon RN Position: [facility] RN Supv Member Role: Primary Care Nurse Name: Laura Barnes RN Position: [facility] RN Member Role: Primary Care Nurse Name: Tacho Wall RN Position: S RN Member Role: Primary Care Nurse Name: Sammi Bonilla Position: Reference Physician Member Role: PCP Address: Address: [address] [place] [address] [address] [place] [address]- Name: Yamileth Guerrero RN Position: S RN Member Role: Primary Care Nurse Name: Anastacia Valdivia RN Position: [facility] SN RN Member Role: Primary Care Nurse Name: Nik Morrison RN Position: S RN Member Role: Primary Care Nurse Care Team Related Persons Name: MELISSA MCDOWELLI Address: home [address] [place] [address] Name: JEAN-PAUL VERGARA Address: home [address] [place] [address] Name: LEFTY SMART Address: home [address] [place] [address]
--- OUTSIDE RECORDS SUMMARY | 2022-11-01 18:48 | XMS_ITS | Continuity of Care Document ---
Author Name Unknown Organization [facility] Address Unknown Care Team Providers Care Test Engine Mechanic Name Role Phone Sammi Bonilla Primary Care Physician [phone] [place] [facility] [place] - 09/28/21 [facility] Attending Physician: Donnie Villegas MD Admitting Physician: Donnie Villegas MD Allergies, Adverse Reactions, Alerts Substance Reaction Severity Status Trospium Chloride Active Bactrim Rash Active Immunizations Given and Recorded Vaccine Date Status Refusal Reason Pneumococcal Vaccine (oldterm) 07/05/08 Given Medications Acetaminophen [...] 22:08:02 EST, Aerosol, Route to Pharmacy Electronically, [id number], [facility]/pharmacy #[id number], Compound Start Date: 03/24/18 Stop Date: 04/23/18 Status: Ordered aspirin 81 mg oral tablet 1 tablet = 81 mg, By Mouth, Daily, # 30 tablet, 0 Refills, Maintenance, Tablet Start Date: 12/31/12 Status: Ordered Atorvastatin 10 mg, By Mouth, Daily at bedtime, Maintenance, 12/31/12 9:00:34 Start Date: 12/31/12 Status: Ordered calcium (as carbonate) 500 mg oral tablet, chewable 1 tablet = 500 mg, By Mouth, Daily, 0 Refills, Maintenance, 07/12/18 18:40:14 EDT Start Date: 07/12/18 Status: Ordered Centrum Silver 1 tablet, By Mouth, Daily, 0 Refills, Maintenance Start Date: 09/08/11 Status: Ordered COPD COPD, See Instructions, # 1 units, Refills 0, Tot. Refills 0, Maintenance, Over night pulse oxymetry to evaluate for nocturnal hypoxia and desaturation Diagnosis COPD, URI, chronic hypoxic respiratory failure, 04/02/18 14:15:09 EST, Compound Start Date: 04/02/18 Status: Ordered Entyvio 300 mg intravenous injection IV Infusion, Every 6 weeks, 0 Refills, Maintenance, 07/12/18 11:02:21 EDT Start Date: 07/12/18 Status: Ordered Flovent 110 mcg Inhaler HFA 2, puffs, Inhalation, Daily, Refills 0, Maintenance, 09/21/19 13:13:00 EDT, Inhaler Start Date: 09/21/19 Status: Ordered lamotrigine 100 mg oral tablet 100 mg, 1, tablet, By Mouth, 2 times a day, # 60 tablet, Refills 5, Tot. Refills 5, Maintenance, 09/07/21 10:53:00 EDT, Route to Pharmacy Electronically, [id number], Partial fill uponpatient request if the prescription is for a schedule I... Start Date: 09/07/21 Stop Date: 03/06/22 Status: Ordered lamotrigine 25 mg oral tablet 75 mg, 3, tablet, By Mouth, 2 times a day, 3 tabs twice a day. dose increased to 75 mg bid, # 180 tablet, Refills 5, Tot. Refills 5, Maintenance, 06/10/21 11:43:00 EDT, Route to Pharmacy Electronically, [facility]/pharmacy #[id number], Partial fill upon patient... Start Date: 06/10/21 Stop Date: 12/07/21 Status: Ordered Myrbetriq 50 mg oral tablet, extended release 1 tablet = 50 mg, By Mouth, Daily, do not crush or chew, # 30 tablet, 0 Refills, Maintenance, 06/10/21 3:30:00 EDT, ER Tablet, Partial fill upon patient request if the prescription is for a schedule II opioid drug. Start Date: 06/10/21 Status: Ordered Oxygen See Instructions, use as directed as needed, 0 Refills, Maintenance, 10/15/13 14:01:53 Start Date: 10/15/13 Status: Ordered propafenone 150 mg oral tablet 1.5 tablets, By Mouth, 2 times a day, 225mg total dose 2 times daily, 0 Refills, Maintenance, 10/15/13 13:58:01 Start Date: 10/15/13 Status: Ordered QUEtiapine 25 mg oral tablet 25 mg, 1, tablet, By Mouth, Daily, give at 1700, Refills 0, Maintenance, 07/12/18 13:58:49 EDT Start Date: 07/12/18 Status: Ordered QUEtiapine 25 mg oral tablet 37.5 mg, 1.5, tablet, By Mouth, Daily, 1300, Refills 0, Maintenance, 07/12/18 13:59:36 EDT Start Date: 07/12/18 Status: Ordered quetiapine 25mg(one every am, 1 1/2 in pm, 2 at bedtime) quetiapine 25mg(one every am, 1 1/2 in pm, 2 at bedtime), Refills 0, Maintenance, 07/20/20 14:00:00EDT, Supply Start Date: 07/20/20 Status: Ordered QUEtiapine 50 mg oral tablet 1 tablet = 50 mg, By Mouth, 2 times a day, AM & Bedtime, 0 Refills, Maintenance, 07/12/18 14:00:37 EDT Start Date: 07/12/18 Status: Ordered Stiolto [...] Date: 06/10/21 Status: Ordered Problem List Condition Effective Dates Status Health Status Inform ant Aneurysm of iliac artery(Confirmed) Active Prostatitis(Confirmed) 08/29/11 Active Severe sepsis(Confirmed) 08/29/11 Active Ulcerative colitis(Confirmed) Active Social History Social History Type Response Smoking Status Former smoker, quit more than 30 days ago entered on: 06/10/21 Sex
--- OUTSIDE RECORDS SUMMARY | 2022-11-01 18:48 | XMS_ITS | Continuity of Care Document ---
Author Name Unknown Organization [facility] Address Unknown Care Team Providers Care District Plant Supervisor Name Role Phone Sammi Bonilla Primary Care Physician En[place] [facility] [place] Date(s): 01/30/21 - 03/01/21 [facility] Attending Physician: Jin Raphael Admitting Physician: Jin Raphael Referring Physician: AdmtrJin Allergies, Adverse Reactions, Alerts Substance Reaction Severity Status Bactrim Rash Active Immunizations Given and Recorded [...] 22:08:02 EST, Aerosol, Route to Pharmacy Electronically, [id number], [facility]/pharmacy #[id number], Compound Start Date: 03/24/18 Stop Date: [...] Inhaler Start Date: 09/21/19 Status: Ordered lamotrigine 25 mg oral tablet 50 mg, 2, tablet, By Mouth, 2 times a day, 2 tabs twice a day., # 120 tablet, Refills 5, Tot. Refills 5, Maintenance, 09/30/20 14:49:00 EDT, Route to Pharmacy Electronically, [facility]/pharmacy #[id number], Partial fill upon patient request if the prescription is... Start Date: 09/30/20 Stop Date: 03/29/21 Status: Ordered NuLYTELY with Flavor Packs oral powder for reconstitution See Instructions, SPLIT PREP., # 4,000 mL, 0 Refills, Maintenance, 03/02/19 10:36:00 EST, [facility]/pharmacy #[id number], SPLIT PREP., 180, cm, 03/02/19 9:53:00 EST, Height, 86.5, kg, 01/14/19 20:33:00 EST, Dry Weight Start Date: 03/02/19 Status: Ordered Oxygen See Instructions, use as [...] 13:08:00 EDT Start Date: 09/21/19 Status: Ordered Wellbutrin 100 mg oral tablet = 50 mg, By Mouth, Daily, am & 1500hrs, 0 Refills, Maintenance, 10/22/18 13:29:06 EDT, Tablet Start Date: 10/22/18 Status: Ordered Problem List Condition Effective Dates Status Health Status Inform ant Aneurysm of iliac artery(Confirmed) Active Prostatitis(Confirmed) 08/29/11 Active Severe sepsis(Confirmed) 08/29/11 Active Ulcerative colitis(Confirmed) Active Social History Social History Type Response Smoking Status Former smoker, quit more than 30 days ago entered on: 07/12/18 Sex
--- OUTSIDE RECORDS SUMMARY | 2022-11-01 18:48 | XMS_ITS | Continuity of Care Document ---
Author Name Unknown Organization [facility] Address [address] [place] [address]- Care Team Providers Care Vice President Research Name Role Phone LatriciamadelineJimmy christie DO Primary Care Physician Encounter [facility] [place] Date(s): 07/05/20 - 08/04/20 [facility] [address] [place] [address]- Allergies, Adverse Reactions, Alerts Substance Reaction Severity [...] 22:08:02 EST, Aerosol, Route to Pharmacy Electronically, [id number], [facility]/pharmacy #[id number], Compound Start Date: 03/24/18 Stop [...] tablet, By Mouth, 2 times a day, Start 1 tab qhs x 1wk, 1 tab twice a day x1wk, 1 tab am & 2 tabs pm x1wk, 2 tabs twice a day., # 120 tablet, Refills 5, Tot. Refills 5, Maintenance, 03/22/20 12:47:00 EST, Route to Pharmacy Electronically, [facility]... Start Date: 03/22/20 Stop Date: 09/18/20 Status: Ordered NuLYTELY with Flavor Packs oral powder for reconstitution See Instructions, SPLIT PREP., # 4,000 mL, 0 Refills, Maintenance, 03/02/19 10:36:00 EST, [facility]/pharmacy #[id number], SPLIT PREP., 180, cm, 03/02/19 9:53:00 [...]
--- OUTSIDE RECORDS SUMMARY | 2022-11-01 18:48 | XMS_ITS | Continuity of Care Document ---
Author Name Unknown Organization [facility] Address [address] [place] [address]- Care Team Providers Care Explosive Expert Name Role Phone Sammi Bonilla Primary Care Physician [place] [facility] [place] 10/02/21 - 11/01/21 [facility] [address] [place] [address]- Attending Physician: Jin Raphael Admitting Physician: Jin [...] 22:08:02 EST, Aerosol, Route to Pharmacy Electronically, [id number], [facility]/pharmacy #[id number], Compound Start Date: 03/24/18 Stop [...] 06/10/21 11:43:00 EDT, Route to Pharmacy Electronically, [facility]/pharmacy #[id number], Partial fill upon patient... Start Date: 06/10/21 [...]
--- OUTSIDE RECORDS SUMMARY | 2022-11-01 18:48 | XMS_ITS | Continuity of Care Document ---
Author Name Unknown Organization [facility] Address Unknown Care Team Providers Care Security Professional Name Role Phone Sammi Bonilla Primary Care Physician ([facility])[phone] [place] [facility] [place] 10/26/21 [facility] Allergies, Adverse Reactions, Alerts Substance Reaction Severity [...] 22:08:02 EST, Aerosol, Route to Pharmacy Electronically, [id number], [facility]/pharmacy #[id number], Compound Start Date: 03/24/18 [...] 06/10/21 11:43:00 EDT, Route to Pharmacy Electronically, [facility]/pharmacy #[id number], Partial fill upon patient... Start Date: 06/10/21 [...]
--- OUTSIDE RECORDS SUMMARY | 2022-11-01 18:48 | XMS_ITS | Continuity of Care Document ---
Author Name Unknown Organization [facility] Address [address] [place] [address]- Care Team Providers Care Router Tender Name Role Phone Saumya CAGE Jimmy Primary Care Physician Encounter [facility] Date(s): 09/21/19 - 09/21/[address] [address]- [place] Discharge Disposition: A-D/C Home Attending Physician: Nik Marroquin MD Admitting Physician: Nik Marroquin MD Referring Physician: Not on Staff, Referring MD Allergies, Adverse Reactions, Alerts Substance Reaction [...] 22:08:02 EST, Aerosol, Route to Pharmacy Electronically, [id number], [facility]/pharmacy #[id number], Compound Start Date: 03/24/18 Stop Date: 04/23/18 [...] 18:40:14 EDT Start Date: 07/12/18 Status: Ordered carBAMazepine 100 mg oral tablet, extended release 200 mg, 2, tablet, By Mouth, 2 times a day, START 1 TAB TWICE A DAY X 1 WK, THEN 2 TABS TWICE A DAY., # 120 tablet, Refills 5, Tot. Refills 5, Maintenance, 09/10/19 7:31:00 EDT, Route to Pharmacy Electronically, [facility]/pharmacy #[id number], 179, cm, 09/09/19 1... Start Date: 09/10/19 Stop Date: 03/08/20 Status: Ordered Centrum Silver 1 tablet, By [...] EDT, Inhaler Start Date: 09/21/19 Status: Ordered NuLYTELY with Flavor Packs oral powder for reconstitution See Instructions, SPLIT PREP., # 4,000 mL, 0 Refills, Maintenance, 03/02/19 10:36:00 EST, [facility]/pharmacy #[id number], SPLIT PREP., 180, cm, 03/02/19 9:53:00 [...] 13:59:36 EDT Start Date: 07/12/18 Status: Ordered QUEtiapine 50 mg oral tablet [...] Status: Ordered Wellbutrin 100 mg oral tablet 1.5 tablets, By Mouth, 2 times a day, am & 1500hrs, 0 Refills, Maintenance, 10/22/18 13:29:06 EDT, Tablet Start Date: 10/22/18 Status: Ordered Problem List Condition Effective Dates Status Health Status Inform ant Aneurysm of iliac artery(Confirmed) Active Prostatitis(Confirmed) 08/29/11 Active Severe sepsis(Confirmed) 08/29/11 Active Ulcerative colitis(Confirmed) Active Vital Signs Most recent to oldest [Reference Range]: 1 2 3 Height 180 cm (09/21/19 2:59 PM) 180 cm (09/21/19 2:46 PM) 180 cm (09/21/19 1:00 PM) Weight 84 kg (09/21/19 2:59 PM) 84 kg (09/21/19 2:46 PM) 84 kg (09/21/19 1:00 PM) Oxygen Saturation [94-100 %] 65 % *L* (09/21/19 2:46 PM) 97 % (09/21/19 1:00 PM) 96 % (09/21/19 12:50 PM) Pulse Rate [55-90 bpm] 73 bpm (09/21/19 2:46 PM) 74 bpm (09/21/19 1:00 PM) 71 bpm (09/21/19 12:50 PM) Body Mass Index [18.5-24.99] 25.93 *H* (09/21/19 2:46 PM) 25.93 *H* (09/21/19 1:00 PM) Blood Pressure [90-138/55-84 mm Hg] 102/80mm Hg (09/21/19 2:46 PM) 119/73mm Hg (09/21/19 12:50 PM) Respiratory Rate [16-30 br/min] 20 br/min (09/21/19 1:00 PM) 16 br/min (09/21/19 12:50 PM) Temperature [96.8-100.4 DegF] 97.6 DegF (09/21/19 2:46 PM) 97.3 DegF (09/21/19 12:50 PM) Mode of Delivery (Oxygen) Room air (09/21/19 2:46 PM) Room air (09/21/19 1:00 PM) Room air (09/21/19 12:50 PM) Blood pressure sites Arm, left (09/21/19 2:46 PM) Arm, left (09/21/19 12:50 PM) Temperature Route Oral (09/21/19 2:46 PM) Temporal (09/21/19 12:50 PM) Dry Weight 84 kg (09/21/19 2:59 PM) 84 kg (09/21/19 2:46 PM) 84 kg (09/21/19 1:00 PM) Weight Obtained Via Patient/family stated (09/21/19 12:51 PM) Standing scale (09/21/19 12:50 PM) Dry Weight Obtained Via Patient/family stated (09/21/19 12:51 PM) Standing scale (09/21/19 12:50 PM) Social History Social History Type Response Smoking Status Former smoker, quit more than 30 days ago entered on: 07/12/18 Sex
--- OUTSIDE RECORDS SUMMARY | 2022-11-01 18:48 | XMS_ITS | Continuity of Care Document ---
Author Name Unknown Organization [facility] Address [address] [place] [address]- Care Team Providers Care Director Utilization Management Name Role Phone Sammi Bonilla Primary Care Physician Encounter [facility] [place] Date(s): 06/04/22 - 07/04/22 [facility] [address] [place] [address]- Attending Physician: Admtr, Ar8 Admitting Physician: Admtr, Ar8 Referring Physician: Admtr, Ar8 Allergies, Adverse Reactions, Alerts Substance Reaction Severity [...] 22:08:02 EST, Aerosol, Route to Pharmacy Electronically, [id number], [facility]/pharmacy #[id number], Compound Start Date: 03/24/18 [...] Refills, Maintenance, 03/25/22 12:35:00 EST, EC Tablet, [facility], Partial fill upon patient request if [...] 30 days ago entered on: 06/10/21 Sex Note * Event Display: Non BH Lab Results Authored Date: * Event Display: Non BH Lab Results Authored Date: * Event Display: Non BH Lab Results Authored Date: [id number] Patient Care team information Care Team Personnel Name: Henok Causey MD Position: [facility] GI MD Member Role: Lifetime Consulting Physician Address: Address: [address] [place] [address], [address] [facility] [address] Name: Linda Samaniego RN Position: S RN Member Role: Primary Care Nurse Name: Laura Thayer RN Position: S RN Member Role: Primary Care Nurse Name: Dot Dumont RN Position: [facility] SN RN Member Role: Primary Care Nurse Name: Avis Coker RN Position: S RN Member Role: Primary Care Nurse Name: Anastacia Mckeon RN Position: S RN Supv Member Role: Primary Care Nurse Name: Laura Barnes RN Position: S RN Member Role: Primary Care Nurse Name: Tacho Wall RN Position: S RN Member Role: Primary Care Nurse Name: Sammi Bonilla Position: Reference Physician Member Role: PCP Address: Address: [address] [place] [address] [address] [place] [address]- Name: Yamileth Guerrero RN Position: S RN Member Role: Primary Care Nurse Name: Anastacia Valdivia RN Position: [facility] SN RN Member Role: Primary Care Nurse Care Team Related Persons Name: TEJINDER MCDOWELL Address: home [address] [place] [address] Name: JEAN-PAUL VERGARA Address: home [address] [place] [address] Name: LEFTY SMART Address: home [address] [place] [address]
--- OUTSIDE RECORDS SUMMARY | 2022-11-01 18:48 | XMS_ITS | Continuity of Care Document ---
Author Name Unknown Organization [facility] Address [address] [place] [address]- Care Team Providers Care Suction Roller Name Role Phone Saumya CAGEJimmy Primary Care Physician Encounter [facility] [place] Date(s): 02/16/20 - 06/06/[address] [address] Attending Physician: Henok Causey MD Admitting Physician: Henok Causey MD Referring Physician: Henok Causey MD Allergies, Adverse Reactions, Alerts Substance Reaction [...] 22:08:02 EST, Aerosol, Route to Pharmacy Electronically, [id number], [facility]/pharmacy #[id number], Compound Start Date: 03/24/18 Stop Date: 04/23/18 [...]
--- OUTSIDE RECORDS SUMMARY | 2022-11-01 18:49 | XMS_ITS | Continuity of Care Document ---
Author Name Unknown Organization [facility] Address [address] [place] [address]- Care Team Providers Care Data Compiler Name Role Phone Jimmy Kerns DO Primary Care Physician En[place] [facility] [place] Date(s): 10/18/20 - 11/17/20 [facility] [address] [place] [address]- [place] Allergies, Adverse Reactions, Alerts Substance Reaction Severity [...] 22:08:02 EST, Aerosol, Route to Pharmacy Electronically, [id number], [facility]/pharmacy #[id number], Compound Start Date: 03/24/18 Stop Date: 04/23/18 Status: Ordered aspirin 81 mg oral tablet 1 tablet = 81 mg, By Mouth, Daily, # 30 tablet, 0 Refills, Maintenance, Tablet Start Date: 12/31/12 Status: Ordered Atorvastatin 10 mg, By Mouth, Daily at bedtime, Maintenance, 10/23/13 9:00:34 Start Date: 12/31/12 Status: Ordered calcium [...] 09/30/20 14:49:00 EDT, Route to Pharmacy Electronically, [facility]/pharmacy #[id number], Partial fill upon patient request if the prescription is... Start Date: 09/30/20 Stop Date: 03/29/21 Status: Ordered NuLYTELY with Flavor Packs oral powder for reconstitution See Instructions, SPLIT PREP., # 4,000 mL, 0 Refills, Maintenance, 03/02/19 10:36:00 EST, [facility]/pharmacy #[id number], SPLIT PREP., 180, cm, 03/02/19 9:53:00 [...]
--- OUTSIDE RECORDS SUMMARY | 2022-11-01 18:49 | XMS_ITS | Continuity of Care Document ---
Author Name Unknown Organization [facility] Address [address] [place] [address]- Care Team Providers Care Emissions Testing And Repair Technician Name Role Phone Sammi Bonilla Primary Care Physician Encounter [facility] [place] Date(s): 05/18/21 - 06/17/21 [facility] [address] [place] [address]- [place] Allergies, Adverse Reactions, Alerts Substance Reaction [...] 22:08:02 EST, Aerosol, Route to Pharmacy Electronically, [id number], [facility]/pharmacy #[id number], Compound Start Date: 03/24/18 Stop [...] 06/10/21 11:43:00 EDT, Route to Pharmacy Electronically, [facility]/pharmacy #[id number], Partial fill upon patient... Start Date: 06/10/21 [...]
--- OUTSIDE RECORDS SUMMARY | 2022-11-01 18:49 | XMS_ITS | Continuity of Care Document ---
Author Name Unknown Organization [facility] Address [address] [facility] [address], [address], [address] [place] [address]- Care Team Providers Care Gas Desulfurizer Name Role Phone Jimmy Kerns DO Primary Care Physician [place] [facility] [place] 09/02/19 [facility] [address] [place], [address], [address] [place] [address] [facility] Attending Physician: Not on Staff, Attending MD Allergies, Adverse Reactions, Alerts Substance Reaction [...] 22:08:02 EST, Aerosol, Route to Pharmacy Electronically, [id number], [facility]/pharmacy #[id number], Compound Start Date: 03/24/18 Stop Date: 04/23/18 [...] 11:02:21 EDT Start Date: 07/12/18 Status: Ordered NuLYTELY with Flavor Packs oral powder for reconstitution See Instructions, SPLIT PREP., # 4,000 mL, 0 Refills, Maintenance, 03/02/19 10:36:00 EST, [facility]/pharmacy #[id number], SPLIT PREP., 180, cm, 03/02/19 9:53:00 [...] tablet 25 mg, 1, tablet, By Mouth, 2 times a day, morning and 1700, Refills 0, Maintenance, 07/12/18 13:58:49 EDT Start Date: 07/12/18 Status: Ordered QUEtiapine 25 mg oral tablet 37.5 mg, 1.5, tablet, By Mouth, Daily, 1300, Refills 0, Maintenance, 07/12/18 13:59:36 EDT Start Date: 07/12/18 Status: Ordered QUEtiapine 50 mg oral tablet 1 tablet = 50 mg, By Mouth, Daily at bedtime, Bedtime, 0 Refills, Maintenance, 07/12/18 14:00:37 EDT Start Date: 07/12/18 Status: Ordered Stiolto Respimat 2.5 mcg-2.5 mcg inhalation aerosol 2 puffs, Inhalation, Every 24 hours, # 180 inhalation, 0 Refills, Maintenance, 08/24/17 12:08:49 EDT, Aerosol Start Date: 08/24/17 Status: Ordered Wellbutrin 100 mg oral tablet 2 tablet, By Mouth, 2 times a day, # 180 tablet, 0 Refills, Maintenance, 10/22/18 13:29:06 EDT, Tablet [...]
--- OUTSIDE RECORDS SUMMARY | 2022-11-01 18:49 | XMS_ITS | Continuity of Care Document ---
Author Name Unknown Organization [facility] Address [address] [place] [address]- Care Team Providers Care Cdl B Driver Name Role Phone Jimmy Kerns DO Primary Care Physician [place] [facility] [place]s): 03/02/20 - 04/01/20 [facility] [address] [place] [address]- Allergies, Adverse Reactions, Alerts Substance Reaction Severity [...] 22:08:02 EST, Aerosol, Route to Pharmacy Electronically, [id number], [facility]/pharmacy #[id number], Compound Start Date: [...]
--- OUTSIDE RECORDS SUMMARY | 2022-11-01 18:49 | XMS_ITS | Continuity of Care Document ---
Author Name Unknown Organization [facility] Address Unknown Care Team Providers Care Awning Erector Name Role Phone Sammi Bonilla Primary Care Physician [phone] Encounter [facility] [place] Date(s): 11/21/20 - 01/27/21 [facility] Attending Physician: Herbert Carlson MD Referring Physician: Sammi Bonilla Allergies, Adverse Reactions, Alerts Substance Reaction Severity [...] 22:08:02 EST, Aerosol, Route to Pharmacy Electronically, [id number], [facility]/pharmacy #[id number], Compound Start Date: 03/24/18 Stop [...] 09/30/20 14:49:00 EDT, Route to Pharmacy Electronically, [facility]/pharmacy #[id number], Partial fill upon patient request if the prescription is... Start Date: 09/30/20 Stop Date: 03/29/21 Status: Ordered NuLYTELY with Flavor Packs oral powder for reconstitution See Instructions, SPLIT PREP., # 4,000 mL, 0 Refills, Maintenance, 03/02/19 10:36:00 EST, [facility]/pharmacy #[id number], SPLIT PREP., 180, cm, 03/02/19 [...]
--- OUTSIDE RECORDS SUMMARY | 2022-11-01 18:49 | XMS_ITS | Continuity of Care Document ---
Author Name Unknown Organization [facility] Address [address] [place] [address]- Care Team Providers Care Decorating Equipment Setter Name Role Phone Sammi Bonilla Primary Care Physician Encounter [facility] R [id number] Date(s): 01/31/21 - 05/31/21 [facility] [address] [place] [address]- Attending Physician: Yanelis Katz MD Admitting Physician: Yanelis Katz MD Referring Physician: Sammi Bonilla Allergies, Adverse [...] 22:08:02 EST, Aerosol, Route to Pharmacy Electronically, [id number], [facility]/pharmacy #[id number], Compound Start Date: 03/24/18 Stop Date: [...] tablet, Refills 5, Tot. Refills 5, Maintenance, 05/26/21 7:51:00 EDT, Route to Pharmacy Electronically, [facility]/pharmacy #[id number], Partial fill upon patient request if the prescription is... Start Date: 05/26/21 Stop Date: 11/22/21 Status: Ordered NuLYTELY with Flavor Packs oral powder for reconstitution See Instructions, SPLIT PREP., # 4,000 mL, 0 Refills, Maintenance, 03/02/19 10:36:00 EST, [facility]/pharmacy #[id number], SPLIT PREP., 180, cm, 03/02/19 9:53:00 [...]
--- OUTSIDE RECORDS SUMMARY | 2022-11-01 18:49 | XMS_ITS | Continuity of Care Document ---
Author Name Unknown Organization [facility] Address [address] [place] [address]- Care Team Providers Care Senior Communications Engineer Name Role Phone Sammi Bonilla Primary Care Physician En[place] [facility] Date(s): 11/03/21 - 12/06/[address] [address]- Attending Physician: Reece Oliveira MD Referring Physician: Reece Oliveira MD Allergies, Adverse Reactions, Alerts Substance Reaction [...] 22:08:02 EST, Aerosol, Route to Pharmacy Electronically, [id number], [facility]/pharmacy #[id number], Compound Start Date: 03/24/18 Stop Date: 04/23/18 [...] 06/10/21 11:43:00 EDT, Route to Pharmacy Electronically, [facility]/pharmacy #[id number], Partial fill upon patient... Start Date: 06/10/21 [...] on: 06/10/21 Sex Patient Care team information Personnel Name: Sammi Bonilla Address: Address: [address] [place] [address] [address] [facility] [place] [address]-
--- OUTSIDE RECORDS SUMMARY | 2022-11-01 18:49 | XMS_ITS | Continuity of Care Document ---
Author Name Unknown Organization [facility] Address [address] [facility], [address]r d Floor, [address] [place] [address]- Care Team Providers Care Laborer Car Barn Name Role Phone Jimmy Kerns DO Primary Care Physician [place] [facility] Date(s): 10/13/19 - 11/12/19 [facility] [address], 3[address], [address] [place] [address]- [facility] Allergies, Adverse Reactions, Alerts Substance Reaction Severity [...] 22:08:02 EST, Aerosol, Route to Pharmacy Electronically, [id number], [facility]/pharmacy #[id number], Compound Start Date: 03/24/18 Stop [...] 09/10/19 7:31:00 EDT, Route to Pharmacy Electronically, [facility]/pharmacy #[id number], 179, cm, 09/09/19 1... Start [...] mL, 0 Refills, Maintenance, 03/02/19 10:36:00 EST, [facility]/pharmacy #[id number], SPLIT PREP., 180, cm, 03/02/19 [...]
--- OUTSIDE RECORDS SUMMARY | 2022-11-01 18:49 | XMS_ITS | Continuity of Care Document ---
Author Name Unknown Organization [facility]enter [facility] Address [address] [place] [address]- Care Team Providers Care Pipe Jeeper Name Role Phone Sammi Bonilla Primary Care Physician En[place] [facility] Date(s): 08/02/22 - 09/01/22 [facility] [address] [place] [address]- [place] Allergies, Adverse Reactions, Alerts Substance Reaction [...] 22:08:02 EST, Aerosol, Route to Pharmacy Electronically, [id number], [facility]/pharmacy #[id number], Compound Start Date: 03/24/18 Stop Date: [...] Refills, Maintenance, 03/25/22 12:35:00 EST, EC Tablet, [facility] 3, Partial fill upon patient request if [...] Team Personnel Name: Henok Causey MD Position: [facility] Physician - Gastroenterology Member Role: Lifetime Consulting Physician Address: Address: [address] [place] [address], [facility] [facility] [place] [address]- Name: Linda Samaniego RN Position: [facility] RN Member Role: Primary Care Nurse Name: Laura Thayer RN Position: S RN Member Role: Primary Care Nurse Name: Dot Dumont RN Position: [facility] RN Member Role: Primary Care Nurse Name: Avis Coker RN Position: S RN Member Role: Primary Care Nurse Name: Anastacia Mckeon RN Position: [facility] RN Supv Member Role: Primary Care Nurse Name: Laura Barnes RN Position: S RN Member Role: Primary Care Nurse Name: Tacho Wall RN Position: S RN Member Role: Primary Care Nurse Name: Sammi Bonilla Position: Reference Physician Member Role: PCP Address: Address: [address] [place] [address] [address] [place] [address]- Name: Yamileth Guerrero RN Position: [facility] RN Member Role: Primary Care Nurse Name: Anastacia Valdivia RN Position: [facility] RN Member Role: Primary Care Nurse Name: Nik Morrison RN Position: [facility] RN Member Role: Primary Care Nurse Name: Lisa Velarde Position: [facility] [place] Member Role: Primary Care Nurse Care Team Related Persons Name: TEJINDER MCDOWELL Address: home [address] [place] [address] Name: JEAN-PAUL VERGARA Address: home [address] [place] [address] Name: LEFTY SMART Address: home [address] [place] [address]
--- OUTSIDE RECORDS SUMMARY | 2022-11-01 18:49 | XMS_ITS | Continuity of Care Document ---
Author Name Unknown Organization [facility] Address Unknown Care Team Providers Care Concrete Stone Finishing Supervisor Name Role Phone Sammi Bonilla Primary Care Physician Encounter [facility] Date(s): 01/31/21 - 03/02/21 [facility] Attending Physician: Jin Raphael Admitting Physician: Jin Raphael Referring Physician: Jin Raphael Allergies, Adverse Reactions, Alerts Substance Reaction Severity [...] 22:08:02 EST, Aerosol, Route to Pharmacy Electronically, [id number], [facility]/pharmacy #[id number], Compound Start Date: 03/24/18 Stop [...] 09/30/20 14:49:00 EDT, Route to Pharmacy Electronically, [facility]/pharmacy #[id number], Partial fill upon patient request if the prescription is... Start Date: 09/30/20 Stop Date: 03/29/21 Status: Ordered NuLYTELY with Flavor Packs oral powder for reconstitution See Instructions, SPLIT PREP., # 4,000 mL, 0 Refills, Maintenance, 03/02/19 10:36:00 EST, [facility]/pharmacy #[id number], SPLIT PREP., 180, cm, 03/02/19 [...]
--- OUTSIDE RECORDS SUMMARY | 2022-11-01 18:49 | XMS_ITS | Continuity of Care Document ---
Author Name Unknown Organization [facility] Address [address] [place] [address]- Care Team Providers Care Signal Mechanic Name Role Phone Jimmy Kerns DO Primary Care Physician Encounter [facility] Date(s): 08/28/19 - 08/28/[address] [address]- [place] Encounter Diagnosis closed minimally displaced fracture of left 5th toe phalynx(Final) - 08/28/19 Discharge Disposition: A-D/C Home Attending Physician: Zane Dominique DO Admitting Physician: Zane Dominique DO Referring Physician: Not on Staff, Referring MD [...] 22:08:02 EST, Aerosol, Route to Pharmacy Electronically, [id number], [facility]/pharmacy #[id number], Compound Start Date: 03/24/18 Stop Date: 04/23/18 [...] mL, 0 Refills, Maintenance, 03/02/19 10:36:00 EST, [facility]/pharmacy #[id number], SPLIT PREP., 180, cm, 03/02/19 9:53:00 [...] Severe sepsis(Confirmed) 08/29/11 Active Ulcerative colitis(Confirmed) Active Results Radiology Reports * Exam Date Time Procedure Performing Provider Status 08/28/19 3:26 PM Foot Min 3 Views Left Grodzicka , Beat a; Auth (Verified) Notes: (Foot Min 3 Views Left) Reason For Exam: Pain RESULT: Foot Min 3 Views Left Foot Min 3 Views Left, 3 views Reason: Pain; Clinical Question(s): Fracture; pt injured his L foot. L pinky toe swelling and painful . COMPARISON: Left foot radiographs dated 01/14/19. FINDINGS: There is an acute fracture of the fifth proximal phalanx. No significant displacement. On the AP view, this appears to extend to the articular surface. There is mild degenerative change at the first metatarsal phalangeal joint. A plantar calcaneal spur is seen and there is enthesopathy at the attachment of the Achilles tendon. Anterior bony proliferation of the tibial plafond is noted. Soft tissue swelling is seen in the fifth digit. IMPRESSION: Acute nondisplaced fracture of the fifth proximal phalanx. WSN: [id number] Ordering Physician: Zane Dominique Dictated By: Shi Pearson MD Dictated Date/Time: 08/28/19 3:47 pm Reviewed By: Shi Pearson MD Signed By: Shi Pearson MD Signed Date/Time: 08/28/19 3:47 pm Transcribed By: CHE Transcribed Date/Time: 08/28/19 3:28 pm Vital Signs Most recent to oldest [Reference Range]: 1 2 Height 179 cm (08/28/19 4:02 PM) 179 cm (08/28/19 2:17 PM) Weight 84.5 kg (08/28/19 4:02 PM) 84.5 kg (08/28/19 2:17 PM) Oxygen Saturation [94-100 %] 97 % (08/28/19 4:02 PM) 95 % (08/28/19 2:17 PM) Pulse Rate [55-90 bpm] 75 bpm (08/28/19 4:02 PM) 80 bpm (08/28/19 2:17 PM) Body Mass Index [18.5-24.99] 26.37 *H* (08/28/19 4:02 PM) Blood Pressure [90-138/55-84 mm Hg] 97/6 7mm Hg (08/28/19 2:17 PM) Respiratory Rate [16-30 br/min] 17 br/mi n (08/28/19 4:02 PM) 17 br/min (08/28/19 2:17 PM) Temperature [96.8-100.4 DegF] 97.6 DegF (08/28/19 2:17 PM) Temperature Route Oral (08/28/19 2:17 PM) Dry Weight 84.5 kg (08/28/19 4:02 PM) 84.5 kg (08/28/19 2:17 PM) Dry Weight Obtained Via Standing scale (08/28/19 2:17 PM) Social History Social History Type Response Smoking Status Former smoker, quit more than 30 days ago entered on: 07/12/18 Sex
--- OUTSIDE RECORDS SUMMARY | 2022-11-01 18:49 | XMS_ITS | Continuity of Care Document ---
Author Name Unknown Organization [facility] Address [address] [facility], 3r d Floor, [address] [place] [address]- Care Team Providers Care Contract Specialist Name Role Phone Sammi Bonilla Primary Care Physician Encounter [facility] Date(s): 09/14/22 - 09/21/22 [facility] [address], [address] Floor, [address] [place] [address] Attending Physician: Rmay Butcher MD Allergies, Adverse Reactions, Alerts Substance Reaction [...] 22:08:02 EST, Aerosol, Route to Pharmacy Electronically, [id number], [facility]/pharmacy #[id number], Compound Start Date: 03/24/18 Stop Date: 04/23/18 [...] Refills, Maintenance, 03/25/22 12:35:00 EST, EC Tablet, [facility] 3, Partial fill upon patient request [...] Status: Ordered QUEtiapine 25 mg oral tablet 12.5 mg, 0.5, tablet, By Mouth, 3 times a day, 1300, # 45 tablet, Refills 6, Tot. Refills 6, Maintenance, 09/14/22 14:26:00 EDT, Route to Pharmacy Electronically, [id number], Partial fill upon patient request if the prescription is for a s... Start Date: 09/14/22 Stop Date: 04/12/23 Status: Ordered Stiolto Respimat 2.5 mcg-2.5 mcg [...] Confirmed 08/29/11 Active Ulcerative colitis Confirmed Active Vital Signs Most recent to oldest [Reference Range]: 1 Height 182 cm (09/14/22 2:04 PM) Weight 86.5 kg (09/14/22 2:04 PM) Oxygen Saturation [94-100 %] 95 % (09/14/22 2:04 PM) Pulse Rate [55-90 bpm] 69 bpm (09/14/22 2:04 PM) Body Mass Index [18.5-24.99 kg/m2] 26.11 kg/m2 *H* (09/14/22 2:04 PM) Blood Pressure [90-138/55-84 mm Hg] 105/ 71mm Hg (09/14/22 2:04 PM) Mode of Delivery (Oxygen) Room air (09/14/22 2:04 PM) Blood pressure sites Arm, left (09/14/22 2:04 PM) Social History Social History Type Response Smoking Status Former smoker, quit more than 30 days ago entered on: 06/10/21 Sex Patient Care team information Care Team Personnel Name: Henok Causey MD Position: [facility] Physician - Gastroenterology Member Role: Lifetime Consulting Physician Address: Address: [address] [place] [address], [address] [facility] [place] [address]- Name: Linda Samaniego RN Position: [facility] RN Member Role: Primary Care Nurse Name: Laura Thayer RN Position: [facility] RN Member Role: Primary Care Nurse Name: Dot Dumont RN Position: [facility] SN RN Member Role: Primary Care Nurse Name: Avis Coker RN Position: [facility] RN Member Role: Primary Care Nurse Name: Anastacia Mckeon RN Position: [facility] RN Supv Member Role: Primary Care Nurse Name: Laura Barnes RN Position: [facility] RN Member Role: Primary Care Nurse Name: Tacho Wall RN Position: [facility] RN Member Role: Primary Care Nurse Name: Sammi Bonilla Position: Reference Physician Member Role: PCP Address: Address: [address] [place] [address] [address] [place] [address]- [place] Name: Yamileth Guerrero RN Position: [facility] RN Member Role: Primary Care Nurse Name: Anastacia Valdivia RN Position: [facility] RN Member Role: Primary Care Nurse Name: Nik Morrison RN Position: [facility] RN Member Role: Primary Care Nurse Name: Lisa Velarde Position: [facility] [place] Member Role: Primary Care Nurse Care Team Related Persons Name: TEJINDER MCDOWELL Address: home [address] [place] [address] Name: JEAN-PAUL VERGARA Address: [address] [place] [address] Name: LEFTY SMART Address: home [address] [place] [address]
--- OUTSIDE RECORDS SUMMARY | 2022-11-01 18:49 | XMS_ITS | Continuity of Care Document ---
Author Name Unknown Organization [facility] Address Unknown Care Team Providers Care Sales Representative Graphic Art Name Role Phone Sammi Bonilla Primary Care Physician Encounter [facility] Date(s): 05/18/21 - 06/17/21 [facility] Allergies, Adverse Reactions, Alerts Substance [...] 22:08:02 EST, Aerosol, Route to Pharmacy Electronically, [id number], [facility]/pharmacy #[id number], Compound Start Date: 03/24/18 Stop Date: 04/23/18 Status: Ordered aspirin 81 mg oral tablet 1 tablet = 81 mg, By Mouth, Daily, # 30 tablet, 0 Refills, Maintenance, Tablet Start Date: 12/31/12 Status: Ordered Atorvastatin 10 mg, By Mouth, Daily at bedtime, Maintenance, 12/31/12 9:00:34 Start Date: 10/23/13 Status: Ordered calcium (as carbonate) 500 mg [...] 11:43:00 EDT, Route to Pharmacy Electronically, [facility]/pharmacy #[id number], Partial fill upon patient... Start Date: 06/10/21 [...]
--- OUTSIDE RECORDS SUMMARY | 2022-11-01 18:49 | XMS_ITS | Continuity of Care Document ---
Author Name Unknown Organization [facility] Address [address] [place] [address]- Care Team Providers Care Flexboard Operator Name Role Phone Jimmy Kerns DO Primary Care Physician En[place] [facility] Date(s): 05/20/20 - 06/19/20 [facility] [address] [place] [address]- Allergies, Adverse Reactions, Alerts Substance Reaction Severity [...] 22:08:02 EST, Aerosol, Route to Pharmacy Electronically, [id number], [facility]/pharmacy #[id number], Compound Start Date: 03/24/18 Stop [...]
--- OUTSIDE RECORDS SUMMARY | 2022-11-01 18:49 | XMS_ITS | Continuity of Care Document ---
Author Name Unknown Organization [facility] Address [address] [facility], 3r d Floor, [address] [place] [address]- Care Team Providers Care Strategic Consultant Name Role Phone Sammi Bonilla Primary Care Physician [place] [facility]/15/22 - 02/14/22 [facility] [address], [address] Floor, [address] [place] [address] Allergies, Adverse Reactions, Alerts Substance Reaction Severity [...] 22:08:02 EST, Aerosol, Route to Pharmacy Electronically, [id number], [facility]/pharmacy #[id number], Compound Start Date: 03/24/18 Stop [...] 06/10/21 11:43:00 EDT, Route to Pharmacy Electronically, [facility]/pharmacy #[id number], Partial fill upon patient... Start Date: 06/10/21 [...] Team Personnel Name: Henok Causey MD Position: [facility] GI MD Member Role: Lifetime Consulting Physician Address: Address: [address] [place] [address], [address] [facility] [place] [address]- Name: Linda Samaniego RN Position: S RN Member Role: Primary Care Nurse Name: Laura Thayer RN Position: S RN Member Role: Primary Care Nurse Name: Dot Dumont RN Position: [facility] SN RN Member Role: Primary Care Nurse Name: Avis Coker RN Position: S RN Member Role: Primary Care Nurse Name: Anastacia Mckeon RN Position: [facility] RN Supsrikanth Member Role: Primary Care Nurse Name: Laura Barnes RN Position: S RN Member Role: Primary Care Nurse Name: Tacho Wall RN Position: S RN Member Role: Primary Care Nurse Name: Sammi Bonilla Position: Reference Physician Member Role: PCP Address: Address: [address] [place] [address] [address] [place] [address]- Name: Iram Medel RN Position: S RN Member Role: Primary Care Nurse Name: Anastacia Valdivia RN Position: [facility] RN Member Role: Primary Care Nurse Name: Lisa Pena Position: S RN Member Role: Primary Care Nurse Care Team Related Persons Name: SHARITA PASUCAL Address: home [address] [place] [address] Name: TEJINDER MCDOWELL Address: home [address] [place] [address] Name: JEAN-PAUL VERGARA Address: [address] [address]
--- OUTSIDE RECORDS SUMMARY | 2022-11-01 18:49 | XMS_ITS | Continuity of Care Document ---
Author Name Unknown Organization [facility] Address [address], [address]r d Floor, [address] [place] [address]- Care Team Providers Care Regional Climate Change Analyst Name Role Phone Sammi Bonilla Primary Care Physician [phone] Encounter [facility] Date(s): 08/29/22 - 10/04/22 [facility] [address], 3[address] Floor, [address] [place] [address]- Attending Physician: Pérez TALAVERA, Michael Grover Referring Physician: Sammi Bonilla Allergies, Adverse Reactions, [...] 22:08:02 EST, Aerosol, Route to Pharmacy Electronically, [id number], [facility]/pharmacy #[id number], Compound Start Date: 03/24/18 Stop [...] Refills, Maintenance, 03/25/22 12:35:00 EST, EC Tablet, [facility] 3, Partial fill upon patient [...] Daily, give at 1700, Refills 0, Maintenance, 05/04/19 13:58:49 EDT Start Date: 07/12/18 Status: Ordered [...] Team Personnel Name: Henok Causey MD Position: [facility] Physician - Gastroenterology Member Role: Lifetime Consulting Physician Address: Address: [address], [address] [facility] [place] [address] Name: Linda Samaniego RN Position: S RN Member Role: Primary Care Nurse Name: Laura Thayer RN Position: S RN Member Role: Primary Care Nurse Name: Dot Dumont RN Position: [facility] RN Member Role: Primary Care Nurse Name: Avis Coker RN Position: [facility] RN Member Role: Primary Care Nurse Name: Anastacia Mckeon RN Position: [facility] RN Supv Member Role: Primary Care Nurse Name: Laura Barnes RN Position: S RN Member Role: Primary Care Nurse Name: Tacho Wall RN Position: S RN Member Role: Primary Care Nurse Name: Sammi Bonilla Position: Reference Physician Member Role: PCP Address: Address: [address] [place] [address] [address] [place] [address]- Name: Yamileth Guerrero RN Position: [facility] RN Member Role: Primary Care Nurse Name: Anastacia Valdivia RN Position: [facility] SN RN Member Role: Primary Care Nurse Name: Nik Morrison RN Position: [facility] RN Member Role: Primary Care Nurse Name: Lisa Velarde Position: [facility] [place] Member Role: Primary Care Nurse Care Team Related Persons Name: TEJINDER MCDOWELL Address: [address] [place] [address] Name: JEAN-PAUL VERGARA Address: [address] [place] [address] Name: LEFTY SMART Address: [address] [place] [address]
--- OUTSIDE RECORDS SUMMARY | 2022-11-01 18:49 | XMS_ITS | Continuity of Care Document ---
Author Name Unknown Organization [facility] Address [address] [place] [address]- Care Team Providers Care Leguillon Debeader Name Role Phone Sammi Bonilla Primary Care Physician [place] [facility] [place] 02/13/21 - 03/15/21 [facility] [address] [place] [address]- [place] Allergies, Adverse Reactions, Alerts Substance Reaction [...] 22:08:02 EST, Aerosol, Route to Pharmacy Electronically, [id number], [facility]/pharmacy #[id number], Compound Start Date: 03/24/18 [...] 09/30/20 14:49:00 EDT, Route to Pharmacy Electronically, [facility]/pharmacy #[id number], Partial fill upon patient request if the prescription is... Start Date: 09/30/20 Stop Date: 03/29/21 Status: Ordered NuLYTELY with Flavor Packs oral powder for reconstitution See Instructions, SPLIT PREP., # 4,000 mL, 0 Refills, Maintenance, 03/02/19 10:36:00 EST, [facility]/pharmacy #[id number], SPLIT PREP., 180, cm, 03/02/19 [...]
--- OUTSIDE RECORDS SUMMARY | 2022-11-01 18:49 | XMS_ITS | Continuity of Care Document ---
Author Name Unknown Organization [facility] ter Address [address] [place] [address]- Care Team Providers Care Color Consultant Name Role Phone LatriciamadelineJimmy christie DO Primary Care Physician Encounter [facility] Date(s): 11/13/19 - 11/13/[address] [address]- [facility] Discharge Disposition: A-D/C Home Attending Physician: Henok Causey MD Admitting Physician: [...] 22:08:02 EST, Aerosol, Route to Pharmacy Electronically, [id number], [facility]/pharmacy #[id number], Compound Start Date: 03/24/18 Stop Date: 04/23/18 [...] 09/10/19 7:31:00 EDT, Route to Pharmacy Electronically, [facility]/pharmacy #[id number], 179, cm, 09/09/19 1... Start Date: [...] mL, 0 Refills, Maintenance, 03/02/19 10:36:00 EST, [facility]/pharmacy #[id number], SPLIT PREP., 180, cm, 03/02/19 9:53:00 EST, Height, 86.5, kg, 11/06/19 20:33:00 EST, Dry Weight Start Date: 03/02/19 [...] Severe sepsis(Confirmed) 08/29/11 Active Ulcerative colitis(Confirmed) Active Procedures Procedure Date Related Diagnosis Body Site Status Colonoscopy with polypectomy and biopsy of colon 11/13/19 Completed Vital Signs Most recent to oldest [Reference Range]: 1 2 3 Height 180.3 cm (11/13/19 12:08 PM) Oxygen Saturation [94-100 %] 100 % (11/13/19 1:34 PM) 98 % (11/13/19 12:08 PM) Pulse Rate [55-90 bpm] 64 bpm (11/13/19 12:08 PM) Blood Pressure [90-138/55-84 mm Hg] 102/56mm Hg (11/13/19 2:01 PM) 102/63mm Hg (11/13/19 1:43 PM) 97/68mm Hg (11/13/19 1:34 PM) Respiratory Rate [16-30 br/min] 18 br/min (11/13/19 2:01 PM) 18 br/min (11/13/19 1:43 PM) 20 br/min (11/13/19 1:34 PM) Temperature [96.8-100.4 DegF] 97.2 DegF (11/13/19 12:08 PM) Mode of Delivery (Oxygen) Room air (11/13/19 2:01 PM) Room air (11/13/19 1:43 PM) Room air (11/13/19 1:34 PM) Blood pressure sites Arm, left (11/13/19 2:01 PM) Arm, left (11/13/19 1:43 PM) Arm, left (11/13/19 1:34 PM) Temperature Route Temporal (11/13/19 12:08 PM) Dry Weight 83.5 kg (11/13/19 12:08 PM) Dry Weight Obtained Via Patient/family s tated (11/13/19 12:08 PM) Social History Social History Type Response Smoking Status Former smoker, quit more than 30 days ago entered on: 07/12/18 Sex
--- OUTSIDE RECORDS SUMMARY | 2022-11-01 18:49 | XMS_ITS | Continuity of Care Document ---
Author Name Unknown Organization [facility] Address [address] [place] [address]- Care Team Providers Care Drafter Geological Name Role Phone Sammi Bonilla Primary Care Physician [phone] [place] [facility] Date(s): 06/21/21 - 07/21/21 [facility] [address] [place] [address]- [place] Allergies, Adverse Reactions, Alerts Substance Reaction [...] 22:08:02 EST, Aerosol, Route to Pharmacy Electronically, [id number], [facility]/pharmacy #[id number], Compound Start Date: 03/24/18 Stop Date: [...] 06/10/21 11:43:00 EDT, Route to Pharmacy Electronically, [facility]/pharmacy #[id number], Partial fill upon patient... Start Date: 06/10/21 [...]
--- OUTSIDE RECORDS SUMMARY | 2022-11-01 18:49 | XMS_ITS | Continuity of Care Document ---
Author Name Unknown Organization [facility] Address [address] [facility], 3r d Floor, [address] [place] [address]- Care Team Providers Care Die Setter Name Role Phone Sammi Bonilla Primary Care Physician Encounter [facility] Date(s): 11/07/21 - 12/07/21 [facility] [address], 3rd Floor, [address] [place] [address]- [place] Allergies, Adverse Reactions, Alerts Substance Reaction [...] 22:08:02 EST, Aerosol, Route to Pharmacy Electronically, [id number], [facility]/pharmacy #[id number], Compound Start Date: 03/24/18 Stop [...] 06/10/21 11:43:00 EDT, Route to Pharmacy Electronically, [facility]/pharmacy #[id number], Partial fill upon patient... Start Date: 06/10/21 [...] information Personnel Name: Sammi Bonilla Address: Address: [address] [place] [address] [address] [facility] [place] [address]-
--- OUTSIDE RECORDS SUMMARY | 2022-11-01 18:49 | XMS_ITS | Continuity of Care Document ---
Author Name Unknown Organization [facility] Address [address] [place] [address]- Care Team Providers Care Flatbed Truck Driver Name Role Phone Saumya CAGEJimmy Primary Care Physician En[place] [facility] [place] Date(s): 12/02/18 - 04/01/19 [facility] [address] [place] [address]- [facility] Attending Physician: Michael Payne MD Admitting Physician: Michael Payne MD Referring Physician: Not on Staff, Referring [...] 22:08:02 EST, Aerosol, Route to Pharmacy Electronically, [id number], [facility]/pharmacy #[id number], Compound Start Date: 03/24/18 Stop Date: [...] EST, Compound Start Date: 04/02/18 Status: Ordered doxycycline hyclate 100 mg oral capsule 1 capsule = 100 mg, By Mouth, 2 times a day, for 10 days, # 20 capsule, 0 Refills, Acute 04/07/19 15:14:00 EST, 03/28/19 15:14:00 EST, Capsule, [facility]/pharmacy [facility][id number], 180, cm, 03/28/19 13:21:00 EST, Height, 88, kg, 03/28/19 13:21:00 EST, Dry Weight Start Date: 03/28/19 Stop Date: 04/07/19 Status: Ordered Entyvio 300 mg intravenous injection [...] 10/15/13 14:01:53 Start Date: 10/15/13 Status: Ordered predniSONE 20 mg oral tablet 2 tablet = 40 mg, By Mouth, Daily, for 7 days, # 14 tablet, 0 Refills, Acute 04/04/19 15:13:00 EST,03/28/19 15:13:00 EST, Tablet, [facility]/pharmacy #[id number], 180, cm, 03/28/19 13:21:00 EST, Height, 88, kg, 03/28/19 13:21:00 EST, Dry Weight Start Date: 03/28/19 Stop Date: 04/04/19 Status: Ordered propafenone 150 mg oral tablet [...]
--- OUTSIDE RECORDS SUMMARY | 2022-11-01 18:49 | XMS_ITS | Continuity of Care Document ---
Author Name Unknown Organization [facility] Address [address] [place] [address]- Care Team Providers Care Cryptographic Technician Name Role Phone Sammi Bonilla Primary Care Physician [phone] [place] [facility] [place] Date(s): 05/15/21 - 06/14/21 [facility] [address] [place] [address]- [place] Allergies, Adverse Reactions, Alerts Substance Reaction [...] 22:08:02 EST, Aerosol, Route to Pharmacy Electronically, [id number], [facility]/pharmacy #[id number], Compound Start Date: 03/24/18 Stop [...] 06/10/21 11:43:00 EDT, Route to Pharmacy Electronically, [facility]/pharmacy #[id number], Partial fill upon patient... Start Date: 06/10/21 [...]
--- OUTSIDE RECORDS SUMMARY | 2022-11-01 18:49 | XMS_ITS | Continuity of Care Document ---
Author Name Unknown Organization [facility] Address [address] [place] [address]- Care Team Providers Care Supervisor Education Name Role Phone Jimmy Kerns DO Primary Care Physician [place] [facility] [place] 09/25/19 - 10/25/19 [facility] [address] [place] [address]- [place] Allergies, Adverse Reactions, Alerts Substance Reaction Severity [...] 22:08:02 EST, Aerosol, Route to Pharmacy Electronically, [id number], [facility]/pharmacy #[id number], Compound Start Date: 03/24/18 Stop Date: [...] 09/10/19 7:31:00 EDT, Route to Pharmacy Electronically, [facility]/pharmacy #[id number], 179, cm, 09/09/19 1... Start Date: [...] mL, 0 Refills, Maintenance, 03/02/19 10:36:00 EST, [facility]/pharmacy #[id number], SPLIT PREP., 180, cm, 03/02/19 9:53:00 [...]
--- OUTSIDE RECORDS SUMMARY | 2022-11-01 18:49 | XMS_ITS | Continuity of Care Document ---
Author Name Unknown Organization [facility] ter Address [address] [place] [address]- Care Team Providers Care Brush Operator Name Role Phone Jimmy Kerns DO Primary Care Physician Encounter [facility] Date(s): 01/05/19 - 03/13/[address] [address] [place] Attending Physician: Faheem Vaughn MD Admitting Physician: Faheem Vaughn MD Referring Physician: Faheem Vaughn MD Allergies, Adverse Reactions, Alerts Substance Reaction [...] 22:08:02 EST, Aerosol, Route to Pharmacy Electronically, [id number], [facility]/pharmacy #[id number], Compound Start Date: 03/24/18 [...]
--- OUTSIDE RECORDS SUMMARY | 2022-11-01 18:49 | XMS_ITS | Continuity of Care Document ---
Author Name Unknown Organization [facility] ter Address [address] [place] [address]- Care Team Providers Care Oven Worker Name Role Phone Rosette VILLALOBOS, July A Primary Care Physicia n Encounter [facility] [place] Date(s): 06/09/21 - 06/10/[address] [address] Discharge Disposition: A-D/C Home Attending Physician: Nolberto Cabral MD Admitting Physician: Ish Salinas MD Referring Physician: Rosette VILLALOBOS, July A Allergies, Adverse Reactions, Alerts Substance Reaction Severity [...] 22:08:02 EST, Aerosol, Route to Pharmacy Electronically, [id number], [facility]/pharmacy #[id number], Compound Start Date: [...] Route to Pharmacy Electronically, [facility]/pharmacy #[id number], Partial fill upon patient... Start Date: 06/10/21 [...] Exam Date Time Procedure Performing Provider Status 06/09/21 10:50 PM Chest 2 Views Frontal and Lat Ramy Clayton; Inocencio (Verified) Notes: (Chest 2 Views Frontal and Lat) Reason For Exam: Chest Pain;Other: RESULT: Chest 2 Views Frontal and Lat Chest 2 Views Frontal and Lat Hx of Present Illness: coming from assisted living - states pt has history of seizures and said he became lightheaded, dizzy and then passed out and fell backwards into window sill - hit upper back and back of arms. he was disoriented for some time afterwards per .; Reason: Other:; Chest Pain; Clinical Question(s): Other: COMPARISON: 03/18/2020 FINDINGS: LINES AND TUBES: None. LUNGS AND PLEURA: Severe upper lobe emphysema with atelectasis and/or scarring in the lower lobes. Densely calcified granuloma in left midlung zone. No pleural effusion. No pneumothorax. HEART, MEDIASTINUM AND SHAKEEL: Post median sternotomy. Heart is normal in size. Normal upper mediastinal and hilar contour. BONES AND SOFT TISSUES: No acute abnormality. IMPRESSION: Severe upper lobe emphysema. Chronic interstitial changes at both lung bases. No superimposed acute abnormality is identified WSN: [id number] Ordering Physician: Herb Villanueva Dictated By: Nguyễn Boyd MD Dictated Date/Time: 06/09/21 11:04 p Reviewed By: Nguyễn Boyd MD Signed By: Nguyễn Boyd MD Signed Date/Time: 06/09/21 11:04 pm Transcribed By: CHE Transcribed Date/Time: 06/09/21 11:02 pm Vital Signs Most recent to oldest [Reference Range]: 1 2 3 Oxygen Saturation [94-100 %] 98 % (06/10/21 9:47 AM) 98 % (06/10/21 5:06 AM) 96 % (06/10/21 3:31 AM) Pulse Rate [55-90 bpm] 70 bpm (06/10/21 9:47 AM) 66 bpm (06/10/21 5:04 AM) 65 bpm (06/10/21 3:31 AM) Blood Pressure [90-138/55-84 mm Hg] 98/64mm Hg (06/10/21 9:47 AM) 110/60mm Hg (06/10/21 3:31 AM) 100/53mm Hg (06/10/21 12:47 AM) Respiratory Rate [16-30 br/min] 18 br/min (06/10/21 9:47 AM) 18 br/min (06/10/21 8:00 AM) 18 br/min (06/10/21 5:04 AM) Temperature [96.8-100.4 DegF] 97.5 DegF (06/10/21 9:47 AM) 98.3 DegF (06/10/21 5:04 AM) 98.1 DegF (06/10/21 12:47 AM) Liters per Minute 4 L/min (06/10/21 3:31 AM) 4 L/min (06/10/21 12:47 AM) 4 L/min (06/09/21 10:30 PM) Mode of Delivery (Oxygen) Room air (06/10/21 9:47 AM) Room air (06/10/21 5:06 AM) Nasal cannula (06/10/21 3:31 AM) Blood pressure sites Arm, left (06/10/21 9:47 AM) Arm, right (06/09/21 6:11 PM) Temperature Route Oral (06/10/21 9:47 AM) Oral (06/10/21 5:04 AM) Oral (06/10/21 12:47 AM) Social History Social History Type Response Smoking Status Former smoker, quit more than 30 days ago entered on: 06/10/21 Sex
--- OUTSIDE RECORDS SUMMARY | 2022-11-01 18:49 | XMS_ITS | Continuity of Care Document ---
Author Name Unknown Organization [facility] Address [address] [place] [address]- Care Team Providers Care Loaders Name Role Phone Rosette VILLALOBOS, July A Primary Care Physicia n Encounter [facility] [id number] Date(s): 03/30/22 - 04/29/22 [facility] [address] [place] [address]- [place] Allergies, Adverse Reactions, Alerts Substance Reaction [...] 22:08:02 EST, Aerosol, Route to Pharmacy Electronically, [id number], [facility]/pharmacy #[id number], Compound Start Date: 03/24/18 Stop Date: [...] Refills, Maintenance, 03/25/22 12:35:00 EST, EC Tablet, [facility] 3, Partial fill upon patient request [...] Team Personnel Name: Henok Causey MD Position: [facility] GI MD Member Role: Lifetime Consulting Physician Address: Address: [address] [place] [address], [address] [facility] [place] [address]- Name: Linda Samaniego RN Position: [facility] RN Member Role: Primary Care Nurse Name: Rosette VILLALOBOS, July Position: [facility] Physician (General Medicine) Member Role: PCP Address: Address: [address] [place] [address] [address] [place] [address]- Name: Laura Thayer RN Position: S RN Member Role: Primary Care Nurse Name: Dot Dumont RN Position: [facility] RN Member Role: Primary Care Nurse Name: Avis Coker RN Position: S RN Member Role: Primary Care Nurse Name: Anastacia Mckeon RN Position: [facility] RN Supv Member Role: Primary Care Nurse Name: Laura Barnes RN Position: [facility] RN Member Role: Primary Care Nurse Name: Tacho Wlal RN Position: [facility] RN Member Role: Primary Care Nurse Name: Yamileth Guerrero RN Position: [facility] RN Member Role: Primary Care Nurse Name: Iram Medel RN Position: [facility] RN Member Role: Primary Care Nurse Name: Anastacia Valdivia RN Position: [facility] RN Member Role: Primary Care Nurse Name: Lisa Pnea Position: [facility] RN Member Role: Primary Care Nurse Care Team Related Persons Name: BELINDA PASCUALA Address: [address] [place] [address] Name: TEIJNDER MCDOWELL Address: [address] [place] [address] Name: JEAN-PAUL VERGARA Address: home [address] [place] [address]
--- OUTSIDE RECORDS SUMMARY | 2022-11-01 18:49 | XMS_ITS | Continuity of Care Document ---
Author Name Unknown Organization [facility] Address [address] [facility], 3r d Floor, [address] [place] [address]- Care Team Providers Care Ic Engineer Name Role Phone Jimmy Kerns DO Primary Care Physician Encounter [facility] [place] Date(s): 12/16/19 - 01/15/20 [facility] [address] [place], [address]rd Floor, [address] [place] [address] Allergies, Adverse Reactions, Alerts Substance Reaction [...] 22:08:02 EST, Aerosol, Route to Pharmacy Electronically, [id number], [facility]/pharmacy #[id number], Compound [...] mL, 0 Refills, Maintenance, 03/02/19 10:36:00 EST, [facility]/pharmacy #[id number], SPLIT PREP., 180, cm, 03/02/19 [...]
--- OUTSIDE RECORDS SUMMARY | 2022-11-01 18:49 | XMS_ITS | Continuity of Care Document ---
Author Name Unknown Organization [facility] Address [address] [facility], 3r d Floor, [address] [place] [address]- Care Team Providers Care Enterprise Security Architect Name Role Phone Jimmy Kerns DO Primary Care Physician Encounter [facility] [place] Date(s): 09/09/19 - 10/09/19 [facility] [address], 3[address] Floor, [address] [place] [address]- [facility] Attending Physician: Jin Raphael Admitting Physician: Jin [...] 22:08:02 EST, Aerosol, Route to Pharmacy Electronically, [id number], [facility]/pharmacy #[id number], Compound Start Date: 03/24/18 Stop Date: [...] 09/10/19 7:31:00 EDT, Route to Pharmacy Electronically, [facility]/pharmacy #[id number], 179, cm, 09/09/19 1... Start Date: [...] mL, 0 Refills, Maintenance, 03/02/19 10:36:00 EST, [facility]/pharmacy #[id number], SPLIT PREP., 180, cm, 03/02/19 9:53:00 [...]
--- OUTSIDE RECORDS SUMMARY | 2022-11-01 18:49 | XMS_ITS | Continuity of Care Document ---
Author Name Unknown Organization [facility] Address [address] [facility], 3r d Floor, [address] [place] [address]- Care Team Providers Care Pelota Maker Name Role Phone Jimmy Kerns DO Primary Care Physician En[place] [facility] [place] Date(s): 09/18/19 - 10/18/19 [facility] [address], 3[address] Floor, [address] [place] [address]- [facility] Allergies, Adverse Reactions, Alerts Substance Reaction Severity [...] 22:08:02 EST, Aerosol, Route to Pharmacy Electronically, [id number], [facility]/pharmacy #[id number], Compound Start Date: 03/24/18 [...] 09/10/19 7:31:00 EDT, Route to Pharmacy Electronically, [facility]/pharmacy #[id number], 179, cm, 09/09/19 1... Start [...] mL, 0 Refills, Maintenance, 03/02/19 10:36:00 EST, [facility]/pharmacy #[id number], SPLIT PREP., 180, cm, [...]
--- OUTSIDE RECORDS SUMMARY | 2022-11-01 18:49 | XMS_ITS | Continuity of Care Document ---
Author Name Unknown Organization [facility] Address [address] [facility], 3r d Floor, [address] [place] [address]- Care Team Providers Care General Expeditor Name Role Phone Sammi Bonilla Primary Care Physician Encounter [facility] ACCT R [id number] Date(s): 09/14/22 - 10/14/22 [facility] [address] [place], [address]rd Floor, [address] [place] [address] Attending Physician: Admtr, Ar8 Admitting Physician: Admtr, [...] 22:08:02 EST, Aerosol, Route to Pharmacy Electronically, [id number], [facility]/pharmacy #[id number], Compound Start Date: 03/24/18 [...] Refills, Maintenance, 03/25/22 12:35:00 EST, EC Tablet, [facility], Partial fill upon patient request if [...] Causey MD Position: [facility] Physician - Gastroenterology Member Role: Lifetime Consulting Physician Address: Address: [facility], [address] [facility] [place], [place] [address] Name: Linda Samaniego RN Position: S RN [...] Reference Physician Member Role: PCP Address: Address: [address] [place] [address] [address] [place] [address]- Name: Yamileth Guerrero RN Position: [facility] RN Member Role: Primary Care Nurse Name: Anastacia Valdivia RN Position: [facility] SN RN Member Role: Primary Care Nurse Name: Nik [place] RN Position: [facility] RN Member Role: Primary Care Nurse Name: Lisa Velarde Position: [facility] [place] Member Role: Primary Care Nurse Care Team Related Persons Name: TEJINDER MCDOWELL Address: [address] [place] [address] Name: JEAN-PAUL VERGARA Address: [address] [place] [address] Name: LEFTY SMART Address: [address] [place] [address]
--- OUTSIDE RECORDS SUMMARY | 2022-11-01 18:49 | XMS_ITS | Continuity of Care Document ---
Author Name Unknown Organization [facility] Address [address] [place] [address]- Care Team Providers [employer] Name Role Phone Saumya CAGE Jimmy Primary Care Physician Encounter [facility] Date(s): 03/28/19 - 03/28/[address] [address]- [place] Encounter Diagnosis COPD with acute exacerbation(Final) - 03/28/19 Discharge Disposition: A-D/C Home Attending Physician: Almas Coronado MD Admitting Physician: Almas Coronado MD Referring Physician: Not on Staff, Referring [...] 22:08:02 EST, Aerosol, Route to Pharmacy Electronically, [id number], [facility]/pharmacy #[id number], Compound Start Date: [...] 04/07/19 15:14:00 EST, 03/28/19 15:14:00 EST, Capsule, [facility]/pharmacy #[id number], 180, cm, 03/28/19 13:21:00 EST, Height, [...] Acute 04/04/19 15:13:00 EST,03/28/19 15:13:00 EST, Tablet, [facility]/pharmacy #[id number], 180, cm, 03/28/19 13:21:00 EST, Height, [...] sepsis(Confirmed) 08/29/11 Active Ulcerative colitis(Confirmed) Active Results Orders for Microbiology Reports Name Date Group A Strep Screen and Culture 03/28/19 Microbiology Reports TEST:Group A Strep Screen and Culture STATUS:Unauthenticated BODY SITE: SOURCE:THROAT COLLECTED DATE/TIME:03/28/19 1:35 PM Group A Strep Screen and Culture SPECIMEN DESCRIPTION : THROAT SWAB SPECIAL REQUESTS : NONE DIRECT EXAM : RAPID GROUP A RESULT IS NEGATIVE, REFER TO CULTURE RESULT. REPORT STATUS : PRELIMINARY REPORT Radiology Reports * Exam Date Time Procedure Performing Provider Status 03/28/19 2:43 PM Chest 2 Views Frontal and Lat Adriano Smith; Inocencio (Verified) Notes: (Chest 2 Views Frontal and Lat) Reason For Exam: Shortness of Breath RESULT: Chest 2 Views Frontal and Lat Chest 2 Views Frontal and Lat Reason: Shortness of Breath; Clinical Question(s): CHF; Hx of Present Illness: the pt presents for evaluatiosn for productive cough with green yellow sputum over the last 2 dasy prior to arrival. thept report sore throat discomfort in chest with coughihg. th tp hs copd and feels he is not getting enough air. COMPARISON: 03/25/2019 chest radiograph. FINDINGS: LINES AND TUBES: None. LUNGS AND PLEURA: Severe upper lobe predominant emphysematous changes. Scarring at the lung bases is similar to the prior examination. There are bilateral dystrophic calcifications throughout both lungs are unchanged.No definite new focal consolidation is appreciated. No pleural effusion. No pneumothorax. HEART, MEDIASTINUM AND SHAKEEL: Heart is normal in size. Normal mediastinal and hilar contour. BONES AND SOFT TISSUES: No acute abnormality. Prior median sternotomy. IMPRESSION: Severe upper lobe predominant emphysematous changes and stable appearing bilateral lower lobe scarring, with no definite superimposed acute consolidation. WSN: [id number] Dictated By: Aram Ly MD Dictated Date/Time: 03/28/19 2:51 pm Reviewed By: Aram Ly MD Signed By: Aram Ly MD Signed Date/Time: 03/28/19 2:51 pm Transcribed By: CHE Transcribed Date/Time: 03/28/19 2:49 pm Vital Signs Most recent to oldest [Reference Range]: 1 2 Height 180 cm (03/28/19 1:21 PM) Weight 88 kg (03/28/19 1:21 PM) Oxygen Saturation [94-100 %] 97 % (03/28/19 3:22 PM) 96 % (03/28/19 1:21 PM) Pulse Rate [55-90 bpm] 73 bpm (03/28/19 3:22 PM) 75 bpm (03/28/19 1:21 PM) Blood Pressure [90-138/55-84 mm Hg] 119/ 76mm Hg (03/28/19 3:22 PM) 110/73mm Hg (03/28/19 1:21 PM) Respiratory Rate [16-30 br/min] 16 br/mi n (03/28/19 3:22 PM) 22 br/min (03/28/19 1:21 PM) Temperature [96.8-100.4 DegF] 98.2 DegF (03/28/19 3:22 PM) 98.4 DegF (03/28/19 1:21 PM) Mode of Delivery (Oxygen) Room air (03/28/19 3:22 PM) Room air (03/28/19 1:21 PM) Temperature Route Temporal (03/28/19 3:22 PM) Temporal (03/28/19 1:21 PM) Dry Weight 88 kg (03/28/19 1:21 PM) Weight Obtained Via Standing scale (03/28/19 1:21 PM) Dry Weight Obtained Via Standing scale (03/28/19 1:21 PM) Social History Social History Type Response Smoking Status Former smoker, quit more than 30 days ago entered on: 07/12/18 Sex
--- OUTSIDE RECORDS SUMMARY | 2022-11-01 18:49 | XMS_ITS | Continuity of Care Document ---
Author Name Unknown Organization [facility] Address [address] [facility], [address], [address] [place] [id number]- Care Team Providers Care [employer] Carrier Name Role Phone Jimmy Kerns DO Primary Care Physician Encounter [facility] [place] Date(s): 09/18/19 - 10/18/19 [facility] [address], [address], [address] [place] [id number]- [facility] Allergies, Adverse Reactions, Alerts Substance [...] 22:08:02 EST, Aerosol, Route to Pharmacy Electronically, [id number], [facility]/pharmacy #[id number], Compound Start Date: 03/24/18 Stop Date: [...] 09/10/19 7:31:00 EDT, Route to Pharmacy Electronically, [facility]/pharmacy #[id number], 179, cm, 09/09/19 1... Start Date: [...] mL, 0 Refills, Maintenance, 03/02/19 10:36:00 EST, [facility]/pharmacy #[id number], [facility] 180, cm, 03/02/19 9:53:00 [...]
--- OUTSIDE RECORDS SUMMARY | 2022-11-01 18:49 | XMS_ITS | Continuity of Care Document ---
Author Name Unknown Organization [facility] Address [address] [place] [address]- Care Team Providers Care [employer] Weigher Name Role Phone Jimmy Kerns DO Primary Care Physician Encounter [facility] Date(s): 05/12/19 - 09/09/19 [facility] [address] [place] [id number]- [place] Attending Physician: Michael Payne MD Admitting Physician: Michael Payne MD Referring Physician: Jimmy Kerns DO Allergies, Adverse Reactions, Alerts Substance Reaction Severity [...] 22:08:02 EST, Aerosol, Route to Pharmacy Electronically, [id number], [facility]/pharmacy #[id number], Compound Start Date: 03/24/18 Stop [...]
--- OUTSIDE RECORDS SUMMARY | 2022-11-01 18:49 | XMS_ITS | Continuity of Care Document ---
Author Name Unknown Organization [facility] Address [address] [place] [address]- Care Team Providers Care [employer]izer Name Role Phone LatriciamadelineJimmy christie DO Primary Care Physician [place] [facility] [place](s): 08/10/19 - 09/09/19 [facility] [address] [place] [id number]- [facility] Attending Physician: Jin Raphael Admitting Physician: Jin [...] 22:08:02 EST, Aerosol, Route to Pharmacy Electronically, [id number], [facility]/pharmacy #[id number], Compound Start Date: 03/24/18 Stop Date: 04/23/18 [...] mL, 0 Refills, Maintenance, 03/02/19 10:36:00 EST, [facility]/pharmacy #[id number], SPLIT PREP[address] 180, cm, 03/02/19 9:53:00 [...]
--- OUTSIDE RECORDS SUMMARY | 2022-11-01 18:49 | XMS_ITS | Continuity of Care Document ---
Author Name Unknown Organization [facility] ter Address [address] [place] [id number]- Care Team Providers Care [employer] Name Role Phone Sammi Bonilla Primary Care Physician Encounter [facility] Date(s): 03/20/22 - 03/25/[address] [id number]- Discharge Disposition: A-D/C Home Attending Physician: Ramy Butcher MD Admitting Physician: Donnie Villegas MD Referring Physician: Donnie Villegas MD Allergies, Adverse Reactions, [...] 22:08:02 EST, Aerosol, Route to Pharmacy Electronically, [id number], [facility]/pharmacy #[id number], Compound Start Date: 03/24/18 [...] Compound Start Date: 04/02/18 Status: Ordered Depakote 500 mg oral enteric coated tablet 1 tablet = 500 mg, By Mouth, 2 times a day, # 60 tablet, 5 Refills, Maintenance, 03/25/22 12:35:00 EST, EC Tablet, [facility], Partial fill upon patient request if [...] EDT, Inhaler Start Date: 09/21/19 Status: Ordered mesalamine 0.375 g oral capsule, [...] oldest [Reference Range]: 1 2 3 Height 182 cm (03/25/22 11:15 AM) 182 cm (03/25/22 7:55 AM) 182 cm (03/25/22 5:02 AM) Weight 87.5 kg (03/20/22 1:14 PM) Oxygen Saturation [94-100 %] 98 % (03/25/22 11:15 AM) 96 % (03/25/22 7:55 AM) 98 % (03/25/22 5:02 AM) Pulse Rate [55-90 bpm] 73 bpm (03/25/22 11:15 AM) 72 bpm (03/25/22 7:55 AM) 65 bpm (03/25/22 5:02 AM) Body Mass Index [18.5-24.99 kg/m2] 26.42 kg/m2 *H* (03/20/22 1:14 PM) Blood Pressure [90-138/55-84 mm Hg] 101/62mm Hg (03/25/22 11:15 AM) 96/58mm Hg (03/25/22 7:55 AM) 96/55mm Hg (03/25/22 5:02 AM) Respiratory Rate [16-30 br/min] 20 br/min (03/25/22 11:15 AM) 20 br/min (03/25/22 7:55 AM) 20 br/min (03/25/22 5:02 AM) Temperature [96.8-100.4 DegF] 97.9 DegF (03/25/22 11:15 AM) 97.3 DegF (03/25/22 7:55 AM) 98.2 DegF (03/25/22 5:02 AM) Liters per Minute 3 L/min (03/25/22 11:15 AM) 3 L/min (03/25/22 7:55 AM) 2 L/min (03/25/22 5:02 AM) Mode of Delivery (Oxygen) Nasal cannula (03/25/22 11:15 AM) Nasal cannula (03/25/22 7:55 AM) Nasal cannula (03/25/22 5:02 AM) Blood pressure sites Arm, left (03/25/22 11:15 AM) Arm, left (03/25/22 7:55 AM) Arm, left (03/25/22 5:02 AM) Temperature Route Oral (03/25/22 11:15 AM) Oral (03/25/22 7:55 AM) Temporal (03/25/22 5:02 AM) Dry Weight 87.5 kg (03/20/22 1:14 PM) Weight Obtained Via Patient/family stated (03/20/22 1:14 PM) Dry Weight Obtained Via Patient/family stated (03/20/22 1:14 PM) Social History Social History Type Response Smoking Status Former smoker, quit more than 30 days ago entered on: 06/10/21 Sex Admission evaluation note * Lester PEREZ, Denisha Draper: PERFORM, MODIFY, MODIFY, MODIFY Event Display: Admission Note Authored Date: [id number] Patient: ??JOHNSON KHANNA ? Age:??81 Years?Sex:??Male?:??1940?? Chief Complaint/Reason for Consultation Elective 5 day VEEG History of Present Illness Mr. Khanna is an 81yo male presents from his assisted living facility with a PMhx of iliac artery aneurysm, Afib (not on AC), ulcerative colitis, abdominal lipoma, abnormal EEG, COPD (on 4L NC), dementia, and repeated episodes of loss of consciousness with falling backwards while standing who presents 03/20??for an elective VEEG. His is accompanying him at the bedside and provides a thorough history. She states that for the past 5 years or so he's been having falls backwards with head strike. She notes that sometimes his eyes glaze over while standing before he falls. Sometimes he is confused after these falls and is not sure where he is. She has never witnessed any generalized tonic clonic activity. She states he recently lost consciousness and his pulse was 48. He was set up by his PCP to have ambulatory cardiac monitoring but was allergic to the adhesive tape and the test had to be postponed. She believes his symptoms have increased in frequency over the past 5 years but latelyare less severe. He was trialed on Lamotrigine 100mg BID but his falls and confusion worsened andthe medications were stopped. ?? His workup thus far includes: Routine EEG 08/21/2019: left and right epileptiform discharges, markers for an increased risk for partial onset seizures.?? Ambulatory EEG 12/09/19: 22hrs with left temporal potentially epileptogenic activity. Episode of dizziness with no EEG correlate.?? Ambulatory EEG 04/07/20: 24hrs with left frontotemporal epileptiform discharges seen as markers for increased risk of partial onset seizures. MRI Brain w/wo 09/27/20: CSF signal lesion expanding the left olfactory groove most likely represents a small arachnoid cyst. The appearance is not significantly changed compared to head CT from 09/20/2009. CTH 06/09/2021: No acute abnormality of the head or cervical spine. ? Home Medications: Aspirin 81mg daily Certavite Senior Tab (1 tab daily in AM) Atorvastatin 10mg QHS Docusate 100mg daily in AM Mesalamine ER 0.375g (4 tabs = 1.5g daily) Propafenone HCL 225mg tab BID Seroquel 37.5mg AM (1.5 tabs), 75mg every evening, 50mg QHS Tamsulosin 0.4mg QHS Mucinex 600mg ER BID Trintellix 10mg BID Albuterol Sulfate HFA 2puffs daily as needed Stiolto Respimat 2 puffs daily 4L NC oxygen Review of Systems ROS:?? General:??denies fever, chills, weakness HEENT:??denies headache, denies nausea, vomiting, visual or hearing changes?? Cardiac:??denies CP, palpitations Respiratory:??denies SOB, wheezes GI:??denies loss of appetite, nausea, vomiting Musculoskeletal:??denies muscle weakness, joint stiffness, redness, decrease in ROM?? Psych:??denies anxiety, depression, memory difficulties?? Neurological:??Episodes where his eyes glaze over and then he loses consciousness, sometimes noted to have possible nystagmus before falling, frequent falls backwards, denies paresthesia, weakness, denies numbness/tingling Objective Vital Signs?? Early Warning Score: 0 (03/20/22 11:27:52) ? Intake/Output? No Data Available ? Physical Exam General:??appears stated age, no acute distress HEENT:??Head: NC/AT, Eyes: EOMI, Ears: hearing intact, poor neck supple Heart:??RRR, No M/G/R Lungs:??Normal I:E, barrel chest, no wheezes, coughs or crackles Musculoskeletal:??(-) atrophy, weakness, normal ROM normal bulk and tone Vascular:??no edema, +CMS to extremities Skin:??no rashes, lesions, skin intact Neuro:?? Mental Status: Pt is alert and oriented x4: person, place, date, and situation. Speech is clear fluent and appropriate, with normal naming, repetition, and comprehension. Pt is able to follow simple and complex commands. Cranial nerves: EOMI. PERRLA. VFF to confrontation. There is no nystagmus. No facial weakness. Facial sensation is intact to light touch. Hearing is intact to voice. Palate rise is symmetric. There is no deviation of the tongue or uvula. Smile symmetric. Tongue midline. No weakness of the sternocleidomastoid or trapezius muscles.?? Motor: There is normal bulk and tone. Strength is 5/5 throughout Sensation: Sensation is intact to light touch throughout. Reflexes: Toes downgoing Coordination: There is no evidence of dysmetria on FTN Gait: Deferred for safety Assessment/Plan 81yo male presents from his assisted living facility with a PMhx of iliac artery aneurysm, Afib (not on AC), ulcerative colitis, abdominal lipoma, abnormal EEG, COPD (on 4L NC), dementia, and repeated episodes of loss of consciousness with falling backwards while standing who presents 03/20??for an elective VEEG. She states that for the past 5 years or so he's been having falls backwards with headstrike. She notes that sometimes his eyes glaze over while standing before he falls. Sometimes he is confused after these falls and is not sure where he is. She has never witnessed any generalized tonic clonic activity. She states he recently lost consciousness and his pulse was 48. He was trialed on Lamotrigine 100mg BID but his falls and confusion worsened and the medications were stopped. Orthostatic vitals checked in the past and were unremarkable. ?? His workup thus far includes: Routine EEG 08/21/2019: left and right epileptiform discharges, markers for an increased risk for partial onset seizures.?? Ambulatory EEG 12/09/19: 22hrs with left temporal potentially epileptogenic activity. Episode of dizziness with no EEG correlate.?? Ambulatory EEG 04/07/20: 24hrs with left frontotemporal epileptiform discharges seen as markers for increased risk of partial onset seizures. MRI Brain w/wo 09/27/20: CSF signal lesion expanding the left olfactory groove most likely represents a small arachnoid cyst. The appearance is not significantly changed compared to head CT from 09/20/2009. CTH 06/09/2021: No acute abnormality of the head or cervical spine. ?? Ddx: ?Epileptic versus cardiogenic etiology for loss of consciousness - states it??never occurs while??laying down,??he is always standing, normal orthostatics in past ?? Recommendations: Neuro: - 5 day elective VEEG (Day 0) - Sleep deprive on day 2 - Seizure precautions - No driving for 6 months per [place] state law after last seizure event - No AEDs for now - Multivitamin - SubqH for dvt ppx ?? Cardiac: Hx Afib - Planned for outpt ambulatory cardiac monitoring but was allergic to the adhesive tape and the test had to be postponed, considering ILR - Continue Aspirin 81mg daily - Continue Atorvastatin 10mg QHS - Propafenone 225mg BID - Check Orthostatic vital signs ?? Pulm: Hx COPD - Continue home 4L NC daily - Stiolto Respimat 2 puffs daily - Albuterol Sulfate 2 puffs daily - Mucinex 300mg QID ?? GI/: Hx Constipation - Tamsulosin 0.4mg QHS - Mesalamine ER 1.5g daily - QID while inpatient due to formulary changes - Docusate 100mg daily in AM ? Psych: - Trintellix 10mg BID - Seroquel 37.5mg AM (1.5 tabs), 75mg every evening, 50mg QHS ?? Diet: regular DVT ppx: SubqH Dispo: Hetal rios Code: FULL Emergency Contact: JEAN-PAUL VERGARA?Relation to Pt: Spouse ?[address]?[place] [id number] ?Cell ? Histories Allergies Allergies ?(Active and Proposed Allergies Only) Trospium Chloride? (Severity: Unknown severity, Onset: Unknown) Bactrim? (Severity: Unknown severity, Onset: Unknown) ?Reactions: Rash ? Past Medical History/Problem List Active Problems??(4) Aneurysm of iliac artery Prostatitis Severe sepsis Ulcerative colitis ? Past Surgical History Colonoscopy with polypectomy and biopsy of colon: 11/13/19 ? Social History Alcohol Details:??Use: Past. Details:??Use: Past. Home/Environment Details:??Living situation: Home/Independent. ??Lives with: Spouse. Substance Abuse Details:??Use: Never. Details:??Use: Never. Tobacco Details:??Use: Former smoker, quit more than 30 days ago. Details:??Use: Former smoker, quit more than 30 days ago. Electronic Cigarette/Vaping Details:??Electronic Cigarette Use: Never. ? Psychosocial History ? Family History No family history recorded. ? Medications Inpatient Medications Medications (5) Active SCHEDULED: (0) CONTINUOUS: (0) PRN: (5) Acetaminophen 325 mg Tablet (Acetaminophen Tablet) ??650 mg, By Mouth, Every 4 hours Ibuprofen 600 mg Tablet (Ibuprofen Tablet) ??600 mg, By Mouth, 3 times a day Lorazepam 2 mg Inj Syringe (LORazepam Inj) ??2 mg, IV Push Slowly, Once NaCl 0.9% Flush 3ml (NaCL 0.9% Flush) ??3 mL, IV Push, Every 8 hours Ondansetron 2mg/mL Inj (2mL Vial) (Ondansetron Inj) ??4 mg, IV Push, 2 times a day ? Results Recent Labs No labs resulted between 03/19/2022 00:00 and 03/20/2022 13:01? * Roxanne VILLALOBOS, Reece Ibarra: PERFORM Event Display: Admission Note Authored Date: I personally saw and examined the patient and agree with the findings and plan as noted below.?? Patient is an 81 yo male with history of iliac artery aneurysm, Afib (not on AC), ulcerative colitis, abdominal lipoma, abnormal EEG, COPD (on 4L NC), dementia, and repeated episodes of loss of consciousness with falling backwards while standing who presents for elective video EEG monitoring.?? He waspreviously tried on lamotrigine with increased confusion.?? Prior EEGs with both right and left temporal epileptiform discharges.?? Orthostatics were unremarkable. ?? Impression: epileptic vs cardiogenic syncope.?? Obtain video EEG monitoring.?? Continue on home medications.?? Sleep deprive on day 2. ? Hospital Progress note * Keyanna Gaxiola: SIGN, MODIFY, VERIFY, PERFORM, SIGN Event Display: Progress Note Hospital Authored Date: Patient: JOHNSON KHANNA Age: 81 years Sex: Male : 1940 Associated Diagnoses: None Author: Keyanna Gaxiola Findings Problem Related to Alteration in Neurological : Alteration in Neurological Function/new 03/25/2022 8:00 EST Alteration in Neuro status Related to Other: 5 day VEEG Goals & Outcomes, Neurological Pt is safe with transfers & activities, Pt will be discharged without infection, Pt will be Neurologically stable, Pt will remain free from injury, Pt/caregiverwill receive psychosocial support as needed, Pt/caregiver will state understanding of plan/goals ofcare, Pt/caregiver will state understanding of the D/C plan Interventions, Neurological Assess/monitor neurologic status, Assess/monitor VS per unit standards & prn, Call/Report variances in assessments to provider, Collaborate w/ provider to implement appropriate guidelines, Collaborate with provider re: medication regime, Document & Monitor O2 Sats; Administer O2 as ordered, If no bowel movement in 3 days activate bowel regime, Keep patient's head & body in good alignment, Maintain HOB at least 30 deg, Maintain normothermia, report temp >101.5 F, Maintain patient safety if unsteady gait, Maintain strict intake & output, Monitor Fluid & Electrolytes, Serum Osmolarity, Monitor for headaches, nausea, vomiting, Monitor speech fluency, aphasia, word finding difficulty, Physical assessment per unit standards, 5 day Video EEG jarocho toring protocol, Assess & monitor for seizure activity, Initiate & maintain Seizure Precautions, Minimize seizure triggering stimuli (i.e. light, noise, pain, Monitor for therapeutic levels of anti-seizure meds BH Goals/Interventions, Neurological Yes Neurological, Problem Start 03/20/2022 18:32 Reviewed plan with, Neurological Patient Patient Progression, Neurological Pt progressing according to plan . Nursing Data Neurological Data. : Neurological Data. 03/25/2022 8:00 EST Tongue Disposition Midline Neurological Symptoms History of seizures, New onset seizures Level of Consciousness Full Consciousness Orientated to person, place, time Person, Place, Time, Event Facial Symmetry Intact Characteristics of Speech Clear and normal Swallowing Difficulty None Pupil description, left Regular Pupil description, right Regular Pupil reaction, left Brisk Pupil reaction, right Brisk Pupil Size, Left 3 mm Pupil Size, Right 3 mm Strength LUE 5-Active movement against gravity & full resistance Strength RUE 5-Active movement against gravity & full resistance Strength LLE 5-Active movement against gravity & full resistance Strength RLE 5-Active movement against gravity & full resistance Tone LUE Normal Tone RUE Normal Tone LLE Normal Tone RLE Normal Sensation LUE Intact Sensation RUE Intact Sensation LLE Intact Sensation RLE Intact Movement LUE Spontaneous Movement RUE Spontaneous Movement LLE Spontaneous Movement RLE Spontaneous Gait Steady Response Eye Opening Spontaneously Motor Response-Adult Obeys commands Verbal Response-Adult Oriented and converses Jorge Luis Coma Score 15 Neuro WNL except Eyes and Movements Conjugate gaze: Move in same direction at same speed Memory Intact Swallow - Neuro Normal . Evaluation Pt alert, oriented x 4. Speech clear, language appropriate. Follows commands. +PERRL. Face symmetrical. Tongue midline. Swallow intact, takes pills whole without difficulty. Moves all extremities spontaneous to command 5/5 strength. Sensation intact. Equal hand grasps. + Dorsi/plantar flexion. Ambulates steady with stand by to BR. Lungs sounds clear, no SOB reported or observed, denies chest pain, on 3L via NC. Denies numbness/tingling, BARRON, dizziness, or visual disturbances. Denies pain. +BS x 4 quadrants, abdomen soft, non-tender. Last BM today in BR. Voiding with no issues. On tele NSR withIVCD pairs, multiform PVCs. + pedal pulses, no edema. Skin intact. Safety precautions maintained, call parsons within reach and instructed on use. Bed in lowest, locked position, alarmed. See CIS for full biophysical.. * Keyanna Gaxiola: PERFORM Event Display: Progress Note Hospital Authored Date: Pt discharged home medically stable, verbalized understanding of DC instructions. IV removed. Sent home with all valuables and belongings. Left unit in wheelchair with 2 family members. * Reece Oliveira MD: SIGN, PERFORM, VERIFY Event Display: Progress Note Hospital Authored Date: Patient: JOHNSON KHANNA Age: 81 years Sex: Male : 1940 Associated Diagnoses: None Author: Reece Oliveira MD INTRODUCTION: The patient is an 81-year-old male who is referred for possible seizures. MEDICATIONS: not listed CONDITION OF RECORDING: The patient underwent five days of digitally recorded video EEG monitoring beginning on 03/20/2022 at 12:06 PM and ending on 03/25/2021 at 8:00 AM, recorded with the patient awake and in all stages of sleep, reviewed with longitudinal and coronal bipolar montages, as well as average referential and anterior temporal montages with all electrodes applied in accordance with theInternational 10-20 System. Seizure and spike detection software was utilized throughout the recording. A single channel EKG lead was recorded as well to help identify artifact. The entire record wasreviewed with special attention to button presses and diary entries. DAY 1 (from 03/20/2022 at 12:06 PM until 03/21/2021 at 8:00 AM) INTERICTAL EEG DESCRIPTION: An occipital dominant rhythm of 8 Hz is present.?? Low voltage 18 to 22Hz activity is seen over the anterior head regions bilaterally. Intermixed activity in the 4 to 7 Hz range is seen in a generalized distribution and independently over the left temporal region. Focalsharp waves are seen over the left temporal region as well. Sleep is normal in configuration and distribution. ICTAL EEG AND VIDEO DESCRIPTION: During the course of this day of continuous video EEG monitoring there were no push button events. The patient had one seizure of left temporal onset at 1:50 AM associated with an arousal that lasted about 20 second and was characterized by initial activity in the 5to 6 Hz range that decreased in frequency to 2 Hz prior to resolving. IMPRESSION: This day of continuous buttermaker continuous churn video EEG monitoring is abnormal due to the presence of one seizure of left temporal onset as well as potentially epileptogenic activity and focal intermittent slowing seen over the left temporal region. Mild generalized slowing of the background is alsopresent.? The findings suggest the presence of a focal lesion or disturbance of cerebral function involving the left temporal region that is superimposed upon a more diffuse disturbance of cerebral function. DAY 2 (from 03/21/2022 at 8:00 AM until 03/22/2021 at 8:00 AM) INTERICTAL EEG DESCRIPTION: An occipital dominant rhythm of 8 Hz is present.?? Low voltage 18 to 22Hz activity is seen over the anterior head regions bilaterally. Intermixed activity in the 4 to 7 Hz range is seen in a generalized distribution and independently over the left temporal region. Focalsharp waves are seen over the left temporal region as well. Sleep is normal in configuration and distribution. ICTAL EEG AND VIDEO DESCRIPTION: During the course of this day of continuous video EEG monitoring there were no push button events. IMPRESSION: This day of continuous buttermaker continuous churn video EEG monitoring is abnormal due to the presence of potentially epileptogenic activity and focal intermittent slowing seen over the left temporal region. Mild generalized slowing of the background is also present.? The findings suggest the presence of a focal lesion or disturbance of cerebral function involving the left temporal region that is superimposed upon a more diffuse disturbance of cerebral function. DAY 3 (from 03/22/2022 at 8:00 AM until 03/23/2021 at 8:00 AM) INTERICTAL EEG DESCRIPTION: An occipital dominant rhythm of 8 Hz is present.?? Low voltage 18 to 22Hz activity is seen over the anterior head regions bilaterally. Intermixed activity in the 4 to 7 Hz range is seen in a generalized distribution and independently over the left temporal region. Focalsharp waves are seen over the left temporal region as well. Sleep is normal in configuration and distribution. ICTAL EEG AND VIDEO DESCRIPTION: During the course of this day of continuous video EEG monitoring there were no push button events. IMPRESSION: This day of continuous buttermaker continuous churn video EEG monitoring is abnormal due to the presence of potentially epileptogenic activity and focal intermittent slowing seen over the left temporal region. Mild generalized slowing of the background is also present.? The findings suggest the presence of a focal lesion or disturbance of cerebral function involving the left temporal region that is superimposed upon a more diffuse disturbance of cerebral function. DAY 4 (from 03/23/2022 at 8:00 AM until 03/24/2021 at 8:00 AM) INTERICTAL EEG DESCRIPTION: An occipital dominant rhythm of 8 Hz is present.?? Low voltage 18 to 22Hz activity is seen over the anterior head regions bilaterally. Intermixed activity in the 4 to 7 Hz range is seen in a generalized distribution and independently over the left temporal region. Focalsharp waves are seen over the left temporal region as well. Sleep is normal in configuration and distribution. ICTAL EEG AND VIDEO DESCRIPTION: During the course of this day of continuous video EEG monitoring there were no push button events. IMPRESSION: This day of continuous fpc video EEG monitoring is abnormal due to the presence of potentially epileptogenic activity and focal intermittent slowing seen over the left temporal region. Mild generalized slowing of the background is also present.? The findings suggest the presence of a focal lesion or disturbance of cerebral function involving the left temporal region that is superimposed upon a more diffuse disturbance of cerebral function. DAY 5 (from 03/24/2022 at 8:00 AM until 03/25/2021 at 8:00 AM) INTERICTAL EEG DESCRIPTION: An occipital dominant rhythm of 8 Hz is present.?? Low voltage 18 to 22Hz activity is seen over the anterior head regions bilaterally. Intermixed activity in the 4 to 7 Hz range is seen in a generalized distribution and independently over the left temporal region. Focalsharp waves are seen over the left temporal region as well. Sleep is normal in configuration and distribution. ICTAL EEG AND VIDEO DESCRIPTION: During the course of this day of continuous video EEG monitoring there were no push button events. IMPRESSION: This day of continuous fpc video EEG monitoring is abnormal due to the presence of potentially epileptogenic activity and focal intermittent slowing seen over the left temporal region. Mild generalized slowing of the background is also present.? The findings suggest the presence of a focal lesion or disturbance of cerebral function involving the left temporal region that is superimposed upon a more diffuse disturbance of cerebral function. * Michael Umanzor: MODIFY, SIGN, VERIFY, PERFORM Event Display: Progress Note Hospital Authored Date: Patient: JOHNSON KHANNA Age: 81 years Sex: Male : 1940 Associated Diagnoses: None Author: Michael Umanzor Findings Problem Related to Alteration in Neurological : Alteration in Neurological Function/new 03/24/2022 20:00 EST Alteration in Neuro status Related to Other: 5 day VEEG Goals & Outcomes, Neurological Pt is safe with transfers & activities, Pt will be discharged without infection, Pt will be Neurologically stable, Pt will remain free from injury, Pt/caregiverwill receive psychosocial support as needed, Pt/caregiver will state understanding of plan/goals ofcare, Pt/caregiver will state understanding of the D/C plan Interventions, Neurological Assess/monitor neurologic status, Assess/monitor VS per unit standards & prn, Call/Report variances in assessments to provider, Collaborate with provider re: medication regime, Document & Monitor O2 Sats; Administer O2 as ordered, Emergency airway equipment at bedside, Identify psychosocial issues related to diagnosis/illness, If no bowel movement in 3 days activate bowel regime, [place] alternate means of communication, Keep patient's head & body in good alignment, Maintain normothermia, report temp >101.5 F, Maintain patient safety if unsteady gait, Maintain strict intake & output, Monitor Fluid & Electrolytes, Serum Osmolarity, Monitorfor headaches, nausea, vomiting, Monitor speech fluency, aphasia, word finding difficulty, Physicalassessment per unit standards, Provide emotional support to Pt/caregiver Goals/Interventions, Neurological Yes Neurological, Problem Start 03/20/2022 18:32 Reviewed plan with, Neurological Patient Patient Progression, Neurological Pt progressing according to plan . Nursing Data Neurological Data. : Neurological Data. 03/24/2022 20:30 EST Tongue Disposition Midline Neurological Symptoms Alteration in level of consciousness, History of seizures, Unsteady gait/Ataxia, Weakness or loss of muscle strength Level of Consciousness Confusion Orientated to person, place, time Person, Place, Event Facial Symmetry Intact Characteristics of Speech Clear and normal Swallowing Difficulty None Pupil description, left Regular Pupil description, right Regular Pupil reaction, left Brisk Pupil reaction, right Brisk Pupil Size, Left 3 mm Pupil Size, Right 3 mm Strength LUE 5-Active movement against gravity & full resistance Strength RUE 5-Active movement against gravity & full resistance Strength LLE 5-Active movement against gravity & full resistance Strength RLE 5-Active movement against gravity & full resistance Tone LUE Normal Tone RUE Normal Tone LLE Normal Tone RLE Normal Sensation LUE Intact Sensation RUE Intact Sensation LLE Intact Sensation RLE Intact Movement LUE Spontaneous, To command Movement RUE Spontaneous, To command Movement LLE Spontaneous, To command Movement RLE Spontaneous, To command Gait Unsteady, Unable to assess Response Eye Opening Spontaneously Motor Response-Adult Obeys commands Verbal Response-Adult Disoriented and converses Jorge Luis Coma Score 14 Neuro WNL except Corneal/Blink Reflex Intact right, Intact left Eyes and Movements Conjugate gaze: Move in same direction at same speed Memory Short term loss Swallow - Neuro Normal . Evaluation Pt AOX3,follows simple command, clear speech, denies numbness/ tingling, PERLLA@3, denies vision changes or headache, face/smile symmetric. YUAN 4/5, unable to assess gait, lungs sounds dim, denies SOB, denies chest pain, active BS, soft and round, last BM 03/24, takes pills whole, pt uses urinal appropriate, denies difficulty voiding, skin intact. Pt on the 5th night on VEEG, no physical seizure noted during shift, seizure precaution in place, bed in lowest position, -continue to monitor . Note * Keyanna Gaxiola: PERFORM Event Display: Discharge/Transfer Note Hospital Authored Date: [id number] Nursing Discharge Note Entered On: 03/25/2022 12:53 EST Performed On: 03/25/2022 12:52 EST by Keyanna Gaxiola Nursing Discharge Note 2 Discharge Time : 03/25/2022 12:27 EST Discharge Level of Care at Discharge : Homehealth/VNA Discharge VNA/Hospice/Home Care(v001) : Jesus Patient Left Unit Via : Wheelchair Patient Accompanied Off Unit with : Responsible adult DC Instructions Provided & Signed by Pt : Yes Patient Understands D/C Instructions : Yes Patient Instructions Discharge Signed : Yes Did Pt have Specialty Bed or Wound Vac : No Keyanna Gaxiola - 03/25/2022 12:53 EST * Timi Eldridge: PERFORM, MODIFY Event Display: Discharge/Transfer Note Hospital Authored Date: [id number] Patient: ??JOHNSON KHANNA ? Age:??81 Years?Sex:??Male?:??1940?? Admit Date Admission Date: 03/20/2022 Discharge Date 03/25/2022 Discharge Diagnoses Unspecified convulsions, 03/20/2022 Hospital Course DAY 1 (from 03/20/2022 at 12:06 PM until 03/21/2021 at 8:00 AM) ?? INTERICTAL EEG DESCRIPTION:?An occipital dominant rhythm of 8 Hz is present.?Low voltage 18 to 22 Hz activity is seen over the anterior head regions bilaterally. ??Intermixed activity in the 4 to 7 Hz range is seen in a generalized distribution and independently over the left temporal region.??Focal sharp waves are seen over the left temporal region as well. ?? Sleep is normal in configuration and distribution. ?? ICTAL EEG AND VIDEO DESCRIPTION:??During the course of this day of continuous video EEG monitoring there were no push button events. ??The patient had one seizure of left temporal onset at 1:50 AM associated with an arousal that lasted about 20 second and was characterized by initial activity in the 5 to 6 Hz range that decreased in frequency to 2 Hz prior to resolving. ?? IMPRESSION:?This day of continuous buttermaker continuous churn video EEG monitoring??is abnormal due to the presence of one seizure of left temporal onset as well as potentially epileptogenic activity and focal intermittent slowing seen over the left temporal region. ??Mild generalized slowing of the background is also present.?The findings suggest the presence of a focal lesion or disturbance of cerebral function involving the left temporal region that is superimposed upon a more diffuse disturbance of cerebral function.? DAY 2 (from 03/21/2022 at 8:00 AM until 03/22/2021 at 8:00 AM) ?? INTERICTAL EEG DESCRIPTION:?An occipital dominant rhythm of 8 Hz is present.?Low voltage 18 to 22 Hz activity is seen over the anterior head regions bilaterally. ??Intermixed activity in the 4 to 7 Hz range is seen in a generalized distribution and independently over the left temporal region.??Focal sharp waves are seen over the left temporal region as well. ?? Sleep is normal in configuration and distribution. ?? ICTAL EEG AND VIDEO DESCRIPTION:??During the course of this day of continuous video EEG monitoring there were no push button events. ? IMPRESSION:?This day of continuous fpc video EEG monitoring??is abnormal due to the presence of potentially epileptogenic activity and focal intermittent slowing seen over the left temporal region. ??Mild generalized slowing of the background is also present.?The findings suggest the p resence of a focal lesion or disturbance of cerebral function involving the left temporal region that is superimposed upon a more diffuse disturbance of cerebral function.? DAY 3 (from 03/22/2022 at 8:00 AM until 03/23/2021 at 8:00 AM) ?? INTERICTAL EEG DESCRIPTION:?An occipital dominant rhythm of 8 Hz is present.?Low voltage 18 to 22 Hz activity is seen over the anterior head regions bilaterally. ??Intermixed activity in the 4 to 7 Hz range is seen in a generalized distribution and independently over the left temporal region.??Focal sharp waves are seen over the left temporal region as well. ?? Sleep is normal in configuration and distribution. ?? ICTAL EEG AND VIDEO DESCRIPTION:??During the course of this day of continuous video EEG monitoring there were no push button events. ? IMPRESSION:?This day of continuous buttermaker continuous churn video EEG monitoring??is abnormal due to the presence of potentially epileptogenic activity and focal intermittent slowing seen over the left temporal region. ??Mild generalized slowing of the background is also present.?The findings suggest the p resence of a focal lesion or disturbance of cerebral function involving the left temporal region that is superimposed upon a more diffuse disturbance of cerebral function.? DAY 4 (from 03/23/2022 at 8:00 AM until 03/24/2021 at 8:00 AM) ?? INTERICTAL EEG DESCRIPTION:?An occipital dominant rhythm of 8 Hz is present.?Low voltage 18 to 22 Hz activity is seen over the anterior head regions bilaterally. ??Intermixed activity in the 4 to 7 Hz range is seen in a generalized distribution and independently over the left temporal region.??Focal sharp waves are seen over the left temporal region as well. ?? Sleep is normal in configuration and distribution. ?? ICTAL EEG AND VIDEO DESCRIPTION:??During the course of this day of continuous video EEG monitoring there were no push button events. ? IMPRESSION:?This day of continuous fpc video EEG monitoring??is abnormal due to the presence of potentially epileptogenic activity and focal intermittent slowing seen over the left temporal region. ??Mild generalized slowing of the background is also present.?The findings suggest the p resence of a focal lesion or disturbance of cerebral function involving the left temporal region that is superimposed upon a more diffuse disturbance of cerebral function.? DAY 5 (from 03/24/2022 at 8:00 AM until 03/25/2021 at 8:00 AM) ?? INTERICTAL EEG DESCRIPTION:?An occipital dominant rhythm of 8 Hz is present.?Low voltage 18 to 22 Hz activity is seen over the anterior head regions bilaterally. ??Intermixed activity in the 4 to 7 Hz range is seen in a generalized distribution and independently over the left temporal region.??Focal sharp waves are seen over the left temporal region as well. ?? Sleep is normal in configuration and distribution. ?? ICTAL EEG AND VIDEO DESCRIPTION:??During the course of this day of continuous video EEG monitoring there were no push button events. ? IMPRESSION:?This day of continuous fpc video EEG monitoring??is abnormal due to the presence of potentially epileptogenic activity and focal intermittent slowing seen over the left temporal region. ??Mild generalized slowing of the background is also present.?The findings suggest the p resence of a focal lesion or disturbance of cerebral function involving the left temporal region that is superimposed upon a more diffuse disturbance of cerebral function.?? Objective/Physical Exam on Day of Discharge Vitals & Measurements T:??97.3?F ?? NV:??72?? RR:??20?? BP:??96/58?? BP:??181/66(Sitting)?? BP:??94/65(Standing)?? BP:??96/66(Supine)?? SpO2:??96%?? HT:??182??cm?? WT:??87.5??kg?? BMI:??26.42?General Exam?Admit Functional Activity: independent. ?Appearance: appears stated age, comfortable and appropriate.?HEENT: Head Normocephalic, Neck Supple.?Respiratory: normal I:E. ?Cardiac: RRR.?Rheumatologic: no swelling.?Dermatologic: no rash.?Extremities: no edema.?Psychiatric: not anxious.? Neuro Exam ?? Mental Status: ?alert and oriented to person, place, month, and year ?fluent and appropriate speech, no dysarthria ?able to identify simple objects ?able to follow simple and 2 step commands Cranial nerves:?PERRL ?EOMI ?VFF ?equal light touch sensation ?no facial asymmetry or droop no ptosis noted bilaterally hearing intact to voice palate movement symmetric, uvula midline no tongue deviation gblc-up-brry head movement and shoulder shrug 5/5 bilaterally muscle strength: ?appropriate muscle tone and bulk ?no tremors ?5/5 UE ?5/5 LE Sensation ?equal light touch sensation UE and LE Reflexes ?2+ through out?Toes down going bilaterally Cerebellum ?Finger to nose intact bilaterally?Gait not assessed ?? Assessment/Plan 81yo male presents from his assisted living facility with a PMhx of iliac artery aneurysm, Afib (not on AC), ulcerative colitis, abdominal lipoma, abnormal EEG, COPD (on 4L NC), dementia, and repeated episodes of loss of consciousness with falling backwards while standing who presents 03/20??for an elective VEEG. She states that for the past 5 years or so he's been having falls backwards with headstrike. She notes that sometimes his eyes glaze over while standing before he falls. Sometimes he is confused after these falls and is not sure where he is. She has never witnessed any generalized tonic clonic activity. She states he recently lost consciousness and his pulse was 48. He was trialed on Lamotrigine 100mg BID but his falls and confusion worsened and the medications were stopped. Orthostatic vitals checked in the past and were unremarkable. VEEG day 1 -3 : 20 second Left temporal seizure at 1:50am on 03/21, potentially epileptogenic activity and slowing over the left temporal region. ?? Discontinued his Lamotrigine Started on Depakote 500mg BID (no subsequent seizures on Depakote) Future Appointments Saturday 10:30 AM EDT ?? With: Juanita Main MD Where: [facility] [place] [address]- Patient Discharge Condition fair Discharge Disposition Home Home Health Face to Face ^HomeHealthFTF Discharge Medications ???Acetaminophen???Albuterol (albuterol CFC free 90 mcg/inh inhalation aerosol)???Aspirin (aspirin 81 mg oral tablet)???Atorvastatin???Divalproex Sodium (divalproex sodium 500 mg oral enteric coated tablet)???Docusate (docusate sodium 100 mg oral capsule)???Fluticasone (Flovent 110 mcg Inhaler HFA)???Guaifenesin (Mucinex 600 mg oral tablet, extended release)???Mesalamine (mesalamine 0.375 g oral capsule, extended release)???Miscellaneous Rx (COPD)???Miscellaneous Rx (albuterol 2.5mg/3ml 0.083%)???Multivitamin With Minerals (Centrum Silver)???Oxygen???Propafenone (propafenone 150 mg oral tablet )???Quetiapine (QUEtiapine 25 mg oral tablet)???Quetiapine (QUEtiapine 25 mg oral tablet)???Quetiapine (QUEtiapine 25 mg oral tablet)???Tamsulosin (tamsulosin 0.4 mg oral capsule)???Vedolizumab (Entyvio 300 mg intravenous injection)???olodaterol-tiotropium (Stiolto Respimat 2.5 mcg-2.5 mcg inhalation aerosol)???vortioxetine (Trintellix 10 mg oral tablet) Stop taking these medications ???Calcium Carbonate (calcium (as carbonate) 500 mg oral tablet, chewable)???Lamotrigine (lamotrigine 100 mg oral tablet)???Lamotrigine (lamotrigine 25 mg oral tablet)???mirabegron (Myrbetriq 50 mg oral tablet, extended release) * Keyanna Gaxiola: PERFORM Event Display: Patient Education/Instruction Authored Date: [id number] Inpatient Adult Discharge Instructions [facility] [address], [place] [id number] Name: JOHNSON KHANNA : 1940 Visit: 03/20/2022 11:27:00 Current Date: 03/25/2022 11:59 Account: [id number] Inpatient Adult Discharge Instructions We would like to thank you for allowing us to assist you with your healthcare needs. The following includes patient education materials and information regarding your injury/illness. Our entire staffstrives to provide an excellent experience for our patients and their families. PLEASE ENSURE YOU FOLLOW-UP PER THE INSTRUCTIONS BELOW! ?? YOUR OPINION IS IMPORTANT TO US! Please complete the survey you may receive by mail or email. Your feedback will be used to make improvements to the healthcare experiences of our patients and their families. Surveys are administered by [employer]. ?? If further treatment with your primary care physician or another doctor is recommended, it is important for you to keep the appointment. Call your primary care physician or return to the Emergency Department immediately if your condition worsens, fails to improve, or new symptoms develop. If you need to find a doctor, you can call [facility] [employer] for a referral at [phone] or toll free at [phone]) or log in to [email or web address].. ?? You can view and manage your care through the patient portal or by using a health care aydin of your choosing. [employer] is a website that allows you to securely view your medical information including your hospital discharge summary, office visit summaries, medications and follow-up visits. You can also request appointments, renew medications, and request access to your medical information using a health care aydin of your choosing, or just ask a question. You can enroll at [email or web address] or register during your next office visit. You have been discharged from [facility], Patient Care Unit: D5A. If you have any questions regarding these instructions after you leave, please call us and we will be happy to assist you. [facility] Your Care Team Attending Physician Hadley VILLALOBOS, Ramy Grover Discharging Providers Jackie PEREZ, Timi Sesay Reason for Admission SEIZURES VEEG D5A Your Diagnosis Unspecified convulsions Tests Performed Below is a partial list of the tests performed during your hospitalization. You may have had other tests and procedures not included in this list. Please discuss all test results with your provider. COVID-19 (2019 Novel Coronavirus) PCR COVID-19 (NOVEL CORONAVIRUS), PCR Depakote Level HOLD LAVENDER TUBE Liver Function Panel Primary Care Provider Sammi Bonilla Advance Directive Health Care Proxy on File Yes - Health Care Proxy No qualifying data available. Discharge Vitals Temperature: 97.9 DegF Height: 182 cm Pulse Rate: 73 bpm Weight: 87.5 kg Respiratory Rate: 20 br/min Body Mass Index:??26.42 kg/m2??High Systolic Blood Pressure: 101 mm Hg Body surface area: 2.1 Diastolic Blood Pressure: 62 mm Hg ?? Oxygen Saturation: 98 % ?? Studies Pending All tests and labs ordered during this hospital stay have been completed unless listed below. Please discuss all pending results with your provider listed above in these instructions. ?? COVID-19 (2019 Novel Coronavirus) PCR What to do next Instructions From Your Doctor Discharge Orders Scheduled Follow-Up Appointments Saturday 10:30 AM EDT ?? With: Juanita Main MD Where: [facility] [address] [place] [address]- Discharge Medications JOHNSON KHANNA :1940 Visit Date:03/20/2022 Medications: Please continue your medications until treatment is completed or stopped by your provider. Medications not listed below should be discontinued. Discuss any questions related to medications with your provider. What How Much When Instructions Next Dose New Divalproex Sodium (divalproex sodium 500 mg oral enteric coated tablet) 500 Milligram Oral Twice a day 03/25 9:00 pm Changed Miscellaneous Rx (albuterol 2.5mg/ 3ml 0.083%) Changed Miscellaneous Rx (COPD) See instructions Over night pulse oxymetry to evaluate for nocturnal hypoxia and desaturation ?? Diagnosis COPD, URI, chronic hypoxic respiratory failure ?? Changed Quetiapine (QUEtiapine 25 mg oral tablet) 1.5 tab(s) Oral Daily 1300 ?? 03/26 9:00 am Changed Quetiapine (QUEtiapine 25 mg oral tablet) 2 tab(s) Oral Daily at Bedtime 03/25 9:00 pm Changed Quetiapine (QUEtiapine 25 mg oral tablet) 3 tab(s) Oral Daily give at 1700 ?? 03/25 5:00 pm Unchanged Acetaminophen 1,000 Milligram Oral Twice a day as needed for as needed for pain As needed Unchanged Albuterol (albuterol CFC free 90 mcg/ inh inhalation aerosol) 2 puff(s) Inhalation Every 4 hours as needed for for wheezing Duration: 30 Days As needed Unchanged Aspirin (aspirin 81 mg oral tablet) 1 tab(s) Oral Daily 03/25 9:00 am Unchanged Atorvastatin 10 Milligram Oral Daily at Bedtime 03/25 9:00 pm Unchanged Docusate (docusate sodium 100 mg oral capsule) 1 capsule Oral Daily 03/25 9:00 am Unchanged Fluticasone (Flovent 110 mcg Inhaler HFA) 2 puff(s) Inhalation Daily 03/25 9:00 am Unchanged Guaifenesin (Mucinex 600 mg oral tablet, extended release) 1 tab(s) Oral Every 12 hours 03/25 9:00 pm Unchanged Mesalamine (mesalamine 0.375 g oral capsule, extended release) 4 capsule Oral Daily in the morning 03/26 9:00 am Unchanged Multivitamin With Minerals (Centrum Silver) 1 tab(s) Oral Daily 03/26 9:00 am Unchanged olodaterol-tiotropium (Stiolto Respimat 2.5 mcg-2.5 mcg inhalation aerosol) 2 puff(s) Inhalation Every 24 hours 03/26 9:00 am Unchanged Oxygen See instructions use as directed as needed ?? As needed Unchanged Propafenone (propafenone 150 mg oral tablet) 1.5 tablets Oral Twice a day 225mg total dose 2 times daily ?? 03/25 9:00 pm Unchanged Tamsulosin (tamsulosin 0.4 mg oral capsule) 1 capsule Oral Daily 03/25 9:00 pm Unchanged Vedolizumab (Entyvio 300 mg intravenous injection) Intravenous Infusion Every 6 weeks Unchanged vortioxetine (Trintellix 10 mg oral tablet) 1 tab(s) Oral Twice a day 03/25 9:00 pm ?? What How Much When Comments Stop Taking Calcium Carbonate (calcium (as carbonate) 500 mg oral tablet, chewable) 1 tab(s) Oral Daily Stop Taking Lamotrigine (lamotrigine 100 mg oral tablet) 1 tab(s) Oral Twice a day Duration: 30 Days Stop Taking Lamotrigine (lamotrigine 25 mg oral tablet) 3 tab(s) Oral Twice a day Duration: 30 Days 3 ??tabs twice a day. dose increased to 75 mg bid ?? Stop Taking mirabegron (Myrbetriq 50 mg oral tablet, extended release) 1 tab(s) Oral Daily do not crush or chew ?? Test Results Below is a partial list of the most recent Laboratory test results done prior to this discharge. You may have had other tests and procedures not included in this list. Please discuss all test resultswith your provider. COVID-19 (2019 Novel Coronavirus) PCR (03/22/2022) ???COVID-19 PCR Specimen Source - NASAL???COVID-19 PCR Result - NEGATIVE COVID-19 (NOVEL CORONAVIRUS), PCR (03/20/2022) ???COVID-19 by RT-PCR - NEGATIVE Depakote Level (03/24/2022) ???Valproic Level - 56.7 mg/L HOLD LAVENDER TUBE (03/24/2022) ???Hold Lavender Top - SPECIMEN DISCARDED AFTER 24 HOURS. Liver Function Panel (03/21/2022) ???Protein, Total - 6.8 Gm/dL???Albumin - 4.2 Gm/dL???Alkaline Phosphatase - 85 units/L???AST (SGOT) - 19 units/L???ALT (SGPT) - 17 units/L???Bilirubin, Total - 0.8 mg/dL???Bilirubin, Direct - 0.2 mg/dL???Bilirubin, Indirect - 0.6 mg/dL Allergies (NKA means No Known Allergies) Bactrim??(Rash) Trospium Chloride Problems Active Problems??(4) Aneurysm of iliac artery?? Prostatitis?? Severe sepsis?? Ulcerative colitis?? Education Materials Below is the list of Educational Leaflet Providered with your Discharge Instructions. Valuables and Belongings I fully understand and agree that [facility] accepts no responsibility for all my personal property including clothing, toilet articles, radios, jewelry, dentures, hearing aids, rings, money, or any other property that is in my possession or is brought to me after admission. I understand certain valuables may be placed in a hospital safe for a short period of time. I understand that the hospital is not liable for loss or damage due to accident, fire, or other natural occurrence while said property is in the safe. I accept full responsibility for any personal property that I keep with me, and will not hold the hospital responsible in case of loss or disappearance. I acknowledge that i have been encouraged to send valuables and belongings home. ?? Review of Valuable and Belonging List: With patient Date for Pt to Sign Valuables/Belongings: 03/20/22 14:25:00 ?? Other Discharge Information ? Case Management Discharge Plan?? Discharge Plan?? Discharge Agency Information?? Discharge Level of Care at Discharge: Homehealth/VNA Name of Agency #1: [facility]ult Dis[facility] VNA/Hospice/Home Care: [facility] Service Categories #1: Physical Therapy, Custodial ?? Service Comments #1: Care tenders will call you to sent up Visit. IF you do not hear from them please call [phone] ?? Pulmonary Rehab Status?? Pulmonary Rehab Discharge Status?? Respiratory Rate: 20 br/min ? Common Emergency Awareness Tips IS IT A STROKE? Act FAST and Check for these signs: FACE Does the face look uneven? ARM Does one arm drift down? SPEECH Does their speech sound strange? TIME Call at any sign of stroke ?? Heart Attack Signs Chest discomfort: Most heart attacks involve discomfort in the center of the chest and lasts more than a few minutes, or goes away and comes back. It can feel like uncomfortable pressure, squeezing, fullness or pain. Discomfort in upper body: Symptoms can include pain or discomfort in one or both arms, back, neck, jaw or stomach. Shortness of breath: With or without discomfort. Other signs: Breaking out in a cold sweat, nausea, or lightheaded. Remember, MINUTES DO MATTER. If you experience any of these heart attack warning signs, call to get immediate medical attention! ?? Smoking can increase your chances of developing chronic health problems and can cause harmful effects to other family members in your house. If you smoke, you are strongly encouraged to quit. Please call [employer] [facility] at [phone] or [phone]) or log in to [email or web address] for referrals to smoking cessation programs. ?? The National Suicide Prevention Hotline is available 01/10 if you or someone you know needs to find a reason to keep living. By calling 1-926-452-bhgo (8500) you'll be connected to a skilled, trained counselor at a crisis center in your area. INPATIENT DISCHARGE INSTRUCTIONS SIGNATURE PAGE JOHNSON KHANNA Location:[facility] Registration Date and Time:03/20/2022 11:27 EST Primary Care Physician: Sammi Bonilla, I JOHNSON KHANNA, have received the above patient education materials/instructions and have verbalized understanding. If ambulance or transport services are being used I further acknowledge being given a choice of service. ?? If you need to contact me, please call me at this number: . Patient/Environmental Protection Economist Name: Patient/Environmental Protection Economist Signature: Relationship to Patient: Witness Name/Signature: Date: * Event Display: Provider Clarification Note Please click on pdf link to open report Patient Care team information Care Team Personnel Name: Henok Causey MD Position: [facility] GI MD Member Role: Lifetime Consulting Physician Address: Address: [address] [place] [address], [address] [facility] [place] [address]- [place] Name: Linda Samaniego RN Position: S RN Member Role: Primary Care Nurse Name: Laura Thayer RN Position: S RN Member Role: Primary Care Nurse Name: Dot Dumont RN Position: [facility] SN RN Member Role: Primary Care Nurse Name: Avis Coker RN Position: S RN Member Role: Primary Care Nurse Name: Anastacia Mckeon RN Position: [facility] RN Supv Member Role: Primary Care Nurse Name: Laura Barnes RN Position: S RN Member Role: Primary Care Nurse Name: Tacho Wall RN Position: S RN Member Role: Primary Care Nurse Name: Sammi Bonilla Position: Reference Physician Member Role: PCP Address: Address: [address] [place] [address] [address] [place] [address]- [place] Name: Yamileth Guerrero RN Position: S RN Member Role: Primary Care Nurse Name: Iram Medel RN Position: [facility] RN Member Role: Primary Care Nurse Name: Anastacia Valdivia RN Position: [facility] SN RN Member Role: Primary Care Nurse Name: Lisa Pena Position: S RN Member Role: Primary Care Nurse Care Team Related Persons Name: SHARITA PASCUAL Address: home [address] [place] [address] Name: TEJINDER MCDOWELL Address: home [address] [place] [address] Name: JEAN-PAUL VERGARA Address: home [address] [place] [address]
--- OUTSIDE RECORDS SUMMARY | 2022-11-01 18:50 | XMS_ITS | Continuity of Care Document ---
Author Name Unknown Organization [facility] Address [address] [facility], [address] Floor, [address] [place] [address]- Care Team Providers Care Production Clerk Name Role Phone Jimmy Kerns DO Primary Care Physician [place] [facility] [place]19 [facility] [address], [address], [address] [place] [address]- [facility] Allergies, Adverse Reactions, Alerts Substance Reaction Severity [...] 22:08:02 EST, Aerosol, Route to Pharmacy Electronically, [id number], [facility]/pharmacy #[id number], Compound Start Date: 03/24/18 Stop Date: 04/23/18 [...] 09/10/19 7:31:00 EDT, Route to Pharmacy Electronically, [facility]/pharmacy #[id number], 179, cm, 09/09/19 1... [...]
--- OUTSIDE RECORDS SUMMARY | 2022-11-01 18:50 | XMS_ITS | Continuity of Care Document ---
Author Name Unknown Organization [facility] Address [address] [facility], [address] Floor, [address] [place] [address]- Care Team Providers Care Accounting Professional Name Role Phone Jimmy Kerns DO Primary Care Physician Encounter [facility] [place] Date(s): 09/23/19 - 10/23/19 [facility] [address], [address], [address] [place] [address]- [facility] Allergies, Adverse Reactions, Alerts Substance Reaction [...] 22:08:02 EST, Aerosol, Route to Pharmacy Electronically, [id number], [facility]/pharmacy #[id number], Compound Start Date: 03/24/18 Stop Date: [...] EDT, Route to Pharmacy Electronically, [facility]/pharmacy #[id number], 179, cm, 09/09/19 1... Start Date: [...] Refills, Maintenance, 03/02/19 10:36:00 EST, [facility]/pharmacy #[id number], SPLIT PREP., 180, cm, 03/02/19 9:53:00 [...]
--- OUTSIDE RECORDS SUMMARY | 2022-11-01 18:50 | XMS_ITS | Continuity of Care Document ---
Author Name Unknown Organization [facility] Address Unknown Care Team Providers Care Behavioral Health Care Manager Name Role Phone Sammi Bonilla Primary Care Physician [place] [facility] [place] 03/01/21 [facility] Attending Physician: Herbert Carlson MD [...] 22:08:02 EST, Aerosol, Route to Pharmacy Electronically, [id number], [facility]/pharmacy #[id number], Compound Start Date: [...] 09/30/20 14:49:00 EDT, Route to Pharmacy Electronically, [facility]/pharmacy #[id number], Partial fill upon patient request if the prescription is... Start Date: 09/30/20 Stop Date: 03/29/21 Status: Ordered NuLYTELY with Flavor Packs oral powder for reconstitution See Instructions, SPLIT PREP., # 4,000 mL, 0 Refills, Maintenance, 03/02/19 10:36:00 EST, [facility]/pharmacy #[id number], SPLIT PREP., 180, cm, [...]
--- OUTSIDE RECORDS SUMMARY | 2022-11-01 18:50 | XMS_ITS | Continuity of Care Document ---
Author Name Unknown Organization [facility] Address [address] [place] [address]- Care Team Providers Care Broach Trouble Shooter Name Role Phone Jimmy Kerns DO Primary Care Physician Encounter [facility] [place] Date(s): 03/02/19 - 03/12/[address] [facility] [address] [place] [address]- [facility] Attending Physician: Jin Raphael Admitting [...] 22:08:02 EST, Aerosol, Route to Pharmacy Electronically, [id number], [facility]/pharmacy #[id number], Compound Start Date: 03/24/18 Stop Date: 04/23/18 [...] mL, 0 Refills, Maintenance, 03/02/19 10:36:00 EST, [facility]/pharmacy #[id number], SPLIT PREP., 180, cm, 03/02/19 9:53:00 [...]
--- OUTSIDE RECORDS SUMMARY | 2022-11-01 18:50 | XMS_ITS | Continuity of Care Document ---
Author Name Unknown Organization [facility] ter Address [address] [place] [id number]- Care Team Providers Care Youth Agent Name Role Phone Rosette VILLALOBOS, July A Primary Care Physicia n Encounter [facility] Date(s): 03/30/22 - 03/31/[address] [address]- Discharge Disposition: A-D/C Home Attending Physician: Sivakumar VILLALOBOS, Becki Aguillon Admitting Physician: Becki Shaver MD Referring Physician: Not on Staff, Referring [...] 22:08:02 EST, Aerosol, Route to Pharmacy Electronically, [id number], [facility]/pharmacy #[id number], Compound Start Date: 03/24/18 Stop [...] Refills, Maintenance, 03/25/22 12:35:00 EST, EC Tablet, [facility], Partial fill upon patient request [...] Confirmed 08/29/11 Active Ulcerative colitis Confirmed Active Results Radiology Reports * Exam Date Time Procedure Performing Provider Status 03/30/22 5:19 PM Chest 2 Views Frontal and Lat Braden rAshley; Auth (Verified) Notes: (Chest 2 Views Frontal and Lat) Reason For Exam: shortness of breath;Other: RESULT: Chest 2 Views Frontal and Lat Chest 2 Views Frontal and Lat Hx of Present Illness: Pt comes into ED via EMS s p syncope, c o dizziness; Reason: Other:; shortness of breath; Clinical Question(s): Pneumonia COMPARISON: 06/09/2021 FINDINGS: LINES AND TUBES: None. LUNGS AND PLEURA: Better inspiration. Multiple pleural calcifications. Emphysematous changes are seen in the upper lobes. No acute infiltrate. Mild bibasilar atelectasis. Normal pulmonary vascularity. Small pleural effusions versus pleural thickening in the costophrenic angles bilaterally. No pneumothorax. HEART, MEDIASTINUM AND SHAKEEL: Heart is normal in size. Normal mediastinal and hilar contour. BONES AND SOFT TISSUES: Status post median sternotomy. No acute abnormality. IMPRESSION: No acute abnormality. No significant change to prior study except better inspiration. WSN: [id number] Ordering Physician: Jaimie Edmonds Dictated By: Marky Garcia MD Dictated Date/Time: 03/30/22 5:44 pm Reviewed By: Marky Garcia MD Signed By: Marky Garcia MD Signed Date/Time: 03/30/22 5:44 pm Transcribed By: CHE Transcribed Date/Time: 03/30/22 5:42 pm * Exam Date Time Procedure Performing Provider Status 03/30/22 2:[address] Abd/Pelvis W/ IV Contrast Only Lisa Cisse; Inocencio (Verified) Notes: (CT Abd/Pelvis W/ IV Contrast Only) Reason For Exam: Abdominal trauma, blunt;Other: RESULT: CT Abd/Pelvis W/ IV Contrast Only CT Abd/Pelvis W/ IV Contrast Only INDICATION: Dizziness, syncope. Abdominal trauma, blunt; TECHNIQUE: Spiral CT through the abdomen and pelvis with IV contrast formatted in 3 planes. 100 cc of Omnipaque 300 was administered intravenously. This study was performed without oral contrast. Weight-based protocol using automatic tube modulation was used to optimize exposure parameters. COMPARISON: 08/24/2017. FINDINGS: LUNG BASES: Extensive emphysematous changes. LIVER: There are a few scattered subcentimeter low-density lesions likely cysts largely unchanged. GALLBLADDER: Multiple layering subcentimeter calculi. BILE DUCTS: No intra or extra hepatic bile duct dilation. SPLEEN: Normal in size and attenuation. PANCREAS: Unremarkable. ADRENAL GLANDS: Unremarkable. KIDNEYS: No calculi or hydronephrosis. No suspicious masses. Scattered cysts largely unchanged. BLADDER: Unremarkable. REPRODUCTIVE ORGANS: Moderately enlarged and heterogeneous. STOMACH, SMALL AND LARGE BOWEL: Redundant moderately stool-filled colon with left-sided colonic diverticulosis. APPENDIX: Normal-appearing. PERITONEUM, OMENTUM AND MESENTERY: No ascites or pneumoperitoneum. No omental or mesenteric lesions. VASCULATURE: Moderate atherosclerotic vascular calcification. No aortic aneurysm. LYMPH NODES: None enlarged. ABDOMINAL WALL: Small fat-containing umbilical hernia. BONES: No acute abnormalities, no focal osseous lesions. IMPRESSION: 1. No evidence of acute process. 2. Cholelithiasis. 3. Diverticulosis. 4. Prostatic enlargement. 5. Other chronic findings as noted. WSN: [id number] Ordering Physician: Jaimie Edmonds Dictated By: Darell Bearden MD Dictated Date/Time: 03/30/22 2:44 pm Reviewed By: Darell Bearden MD Signed By: Darell Bearden MD Signed Date/Time: 03/30/22 2:44 pm Transcribed By: CHE Transcribed Date/Time: 03/30/22 2:35 pm * Exam Date Time Procedure Performing Provider Status 03/30/22 2:[address] Cervical Spine W/O Contrast Lisa Castaneda; Auth (Verified) Notes: (CT Cervical Spine W/O Contrast) Reason For Exam: Neck trauma, dangerous injury mechanism;Other: RESULT: CT Cervical Spine W/O Contrast CT Head/Brain W/O Contrast INDICATION: Hx of Present Illness: Pt comes into ED via EMS s p synope, c o dizziness; Reason: Trauma; Clinical Question(s): Hematoma; Order Comment: TECHNIQUE: Noncontrast head CT using axial technique was reconstructed in axial and coronal planes.Noncontrast spiral CT through the cervical spine was formatted in 3 planes. Automatic tube modulation was used for the cervical spine and iterative dose reconstruction was used for both the head and cervical spine to optimize scan parameters and image quality. COMPARISON: CT head and cervical spine from 06/09/2021 Thyroid ultrasound from 12/15/2020 FINDINGS: Blanching Machine Operator View Findings, Lines and Tubes: None. BRAIN AND EXTRA-AXIAL SPACES: No parenchymal hemorrhage, midline shift, or mass effect. Gibson-white matter differentiation is wellpreserved. No acute infarct. Mild to moderate prominence of the ventricles and sulci consistent with parenchymal volume loss. No white matter lesions. No subarachnoid hemorrhage. No subdural or epidural collection. CALVARIUM, SKULL BASE, AND SOFT TISSUES: No fractures or suspicious bony lesions. The paranasal sinuses and mastoid air cells are clear. Visualized orbits and globes are intact. The extracranial soft tissues are unremarkable. CERVICAL SPINE: No fracture. No acute osseous abnormalities. Slight reversal of the normal cervical lordosis is unchanged. No locked or perched facet. Mild degenerative disc disease, greatest at C5-C6 with disc osteophyte complex and perhaps minimal canal stenosis. OTHER BONES: No acute abnormality. CERVICAL SOFT TISSUES AND LUNG APICES: Severe emphysematous changes at the lung apices. Partially with suture line in the right lung apex. Partially calcified hypodense left thyroid nodule measuring 20 mm (302:89), unchanged, previous assessed on ultrasound. Please refer to prior ultrasound report. No specific suspicious for a right paraesophageal lymph node in the upper thorax (302:93). IMPRESSION: No acute abnormality of the head or cervical spine. WSN: [id number] Ordering Physician: Jaimie Edmonds Dictated By: Nguyễn Ruiz MD Dictated Date/Time: 03/30/22 2:35 pm Reviewed By: Nguyễn Ruiz MD Signed By: Nguyễn Ruiz MD Signed Date/Time: 03/30/22 2:35 pm Transcribed By: CHE Transcribed Date/Time: 03/30/22 2:25 pm * Exam Date Time Procedure Performing Provider Status 03/30/22 2:[address] Head/Brain W/O Contrast Castaneda Balaji hleigh; Auth (Verified) Notes: (CT Head/Brain W/O Contrast) Reason For Exam: Trauma RESULT: CT Head/Brain W/O Contrast CT Head/Brain W/O Contrast INDICATION: Hx of Present Illness: Pt comes into ED via EMS s p synope, c o dizziness; Reason: Trauma; Clinical Question(s): Hematoma; Order Comment: TECHNIQUE: Noncontrast head CT using axial technique was reconstructed in axial and coronal planes.Noncontrast spiral CT through the cervical spine was formatted in 3 planes. Automatic tube modulation was used for the cervical spine and iterative dose reconstruction was used for both the head and cervical spine to optimize scan parameters and image quality. COMPARISON: CT head and cervical spine from 06/09/2021 Thyroid ultrasound from 12/15/2020 FINDINGS: Blanching Machine Operator View Findings, Lines and Tubes: None. BRAIN AND EXTRA-AXIAL SPACES: No parenchymal hemorrhage, midline shift, or mass effect. Gibson-white matter differentiation is wellpreserved. No acute infarct. Mild to moderate prominence of the ventricles and sulci consistent with parenchymal volume loss. No white matter lesions. No subarachnoid hemorrhage. No subdural or epidural collection. CALVARIUM, SKULL BASE, AND SOFT TISSUES: No fractures or suspicious bony lesions. The paranasal sinuses and mastoid air cells are clear. Visualized orbits and globes are intact. The extracranial soft tissues are unremarkable. CERVICAL SPINE: No fracture. No acute osseous abnormalities. Slight reversal of the normal cervical lordosis is unchanged. No locked or perched facet. Mild degenerative disc disease, greatest at C5-C6 with disc osteophyte complex and perhaps minimal canal stenosis. OTHER BONES: No acute abnormality. CERVICAL SOFT TISSUES AND LUNG APICES: Severe emphysematous changes at the lung apices. Partially with suture line in the right lung apex. Partially calcified hypodense left thyroid nodule measuring 20 mm (302:89), unchanged, previous assessed on ultrasound. Please refer to prior ultrasound report. No specific suspicious for a right paraesophageal lymph node in the upper thorax (302:93). IMPRESSION: No acute abnormality of the head or cervical spine. WSN: [id number] Ordering Physician: Jaimie Edmonds Dictated By: Nguyễn Ruiz MD Dictated Date/Time: 03/30/22 2:35 pm Reviewed By: Nguyễn Ruiz MD Signed By: Nguyễn Ruiz MD Signed Date/Time: 03/30/22 2:35 pm Transcribed By: CHE Transcribed Date/Time: 03/30/22 2:25 pm Vital Signs Most recent to oldest [Reference Range]: 1 2 3 Oxygen Saturation [94-100 %] 97 % (03/31/22 8:04 AM) 96 % (03/31/22 5:39 AM) 100 % (03/31/22 2:51 AM) Pulse Rate [55-90 bpm] 63 bpm (03/31/22 8:04 AM) 82 bpm (03/31/22 5:39 AM) 68 bpm (03/31/22 2:51 AM) Blood Pressure [90-138/55-84 mm Hg] 97/63mm Hg (03/31/22 8:04 AM) 96/70mm Hg (03/31/22 5:39 AM) 97/58mm Hg (03/31/22 2:51 AM) Respiratory Rate [16-30 br/min] 16 br/min (03/31/22 8:04 AM) 16 br/min (03/31/22 5:39 AM) 16 br/min (03/31/22 2:51 AM) Temperature [96.8-100.4 DegF] 97.8 DegF (03/31/22 8:04 AM) 97.6 DegF (03/30/22 7:40 PM) 97.7 DegF (03/30/22 12:45 PM) Liters per Minute 4 L/min (03/31/22 8:04 AM) 4 L/min (03/30/22 2:51 PM) 4 L/min (03/30/22 12:45 PM) Mode of Delivery (Oxygen) Nasal cannula (03/31/22 8:04 AM) Room air (03/31/22 5:39 AM) Room air (03/31/22 2:51 AM) Blood pressure sites Arm, left (03/31/22 8:04 AM) Arm, right (03/31/22 5:39 AM) Arm, right (03/31/22 2:51 AM) Temperature Route Oral (03/31/22 8:04 AM) Oral (03/30/22 7:40 PM) Oral (03/30/22 12:45 PM) Social History Social History Type Response Smoking Status Former smoker, quit more than 30 days ago entered on: 06/10/21 Sex Note * Angel Mancilla MD: PERFORM Event Display: Patient Education Leaflets Authored Date: [id number] Recurrent Seizure (Adult) ?? [id number] Recurrent Seizure (Adult) You have had another seizure today. A common cause of seizures that keep happening (recurrent seizures) is missing doses of seizure medicine. But sometimes seizures are hard to control even when you take the medicine correctly. If this is the case for you, your healthcare provider may need to increase your dosage. Or you may need to add or change to another medicine. Home care Follow these tips when caring for yourself at home. ??? Seizures aren???t predictable. So don't do anything that might cause danger to you or other people if you have another seizure. Until the seizures are under good control, take these safety steps:o Don???t drive, ride a motorcycle, or ride a bike. o Don???t operate dangerous equipment such as power tools. o Take showers instead of baths. o Don???t swim or climb ladders, trees, or roofs. ??? Tell your close friends and relatives about your seizure. Teach them what to do for you if it happensagain. ??? If medicine was prescribed to prevent seizures, take it exactly as directed. Missing doses will increase the risk of having another seizure. ??? If you miss a dose, take the missed dose assoon as you remember. If it's almost time for your next dose, skip the missed dose. Restart the medicine at your next scheduled time. Don???t take extra medicine to make up for the missed dose. ??? Wear a Medic-Alert bracelet to let emergency staff know about your condition. ??? Follow a regular sleep schedule so that you get at least 6 to 8 hours of restful sleep every night. This is especially important when you're sick with a cold or flu or another type of infection. ??? Alcohol and illegal drugs can cause you to have more seizures. Ask your provider if you are allowed to drink any alcohol at all. For future seizures, if you're alone: ??? If you feel a seizure coming on, lie down on a bed or on the floor with something soft under your head. This will keep you from falling. Lie on your left side, not on your back. This will let fluid drain out of your mouth and prevent choking. Be sure you are clear of any objects that might injure you during the seizure. Call for help if there is time. For future seizures, if someone is with you: ??? The person should help you get into a safe position and call for help. The person shouldn???t try to force anything in your mouth once the seizure begins. This could harm your teeth or jaw. ?? Follow-up care Follow up with your healthcare provider. Keep a seizure calendar to record how often you have a seizure. If you're being started on anti-seizure medicine, ask your provider if you need additional control. Seizure medicine can affect how well control pills work, and you could become . Some women who take seizure medicine also need certain vitamins. Tell your provider if you plan on getting or if you become . Don't drink alcohol until your provider tells you it???s OK. Each state has different laws that say when someone with seizures is allowed to drive. Some states require that a seizure disorder to be reported to the state. They don't allow you to drive until your seizures are controlled. Talk with your provider to see if this applies to you. ?? Important Don't drive until you've followed up with your healthcare provider and you've been cleared to drive. ?? When to get medical care Call your healthcare provider right away??if any of these occur: ??? Seizures happen more often or last longer than normal ??? A seizure lasts more than 5 minutes ??? You don???t wake up between seizures ??? Confusion that lasts more than 30 minutes after a seizure ??? Injury during a seizure ??? Fever of 100.4??F (38.0??C) or higher, or as advised by your provider ??? Unusual grouchiness, drowsiness, or confusion ??? Stiff or painful neck ??? Headache that gets worse? Last Reviewed Date: 2021 ?? [id number] [employer]. All rights reserved. This information is not intended as a substitute for professional medical care. Always follow your healthcare professional's instructions. ?? * [facility] , CIS S: TRANSCRIBE Marky Garcia MD: VERIFY Event Display: Result: Authored Date: [id number] Chest 2 Views Frontal and Lat Hx of Present Illness: Pt comes into ED via EMS s p syncope, c o dizziness; Reason: Other:; shortness of breath; Clinical Question(s): Pneumonia COMPARISON: 06/09/2021 FINDINGS: LINES AND TUBES: None. LUNGS AND PLEURA: Better inspiration. Multiple pleural calcifications. Emphysematous changes are seen in the upper lobes. No acute infiltrate. Mild bibasilar atelectasis. Normal pulmonary vascularity. Small pleural effusions versus pleural thickening in the costophrenic angles bilaterally. No pneumothorax. HEART, MEDIASTINUM AND SHAKEEL: Heart is normal in size. Normal mediastinal and hilar contour. BONES AND SOFT TISSUES: Status post median sternotomy. No acute abnormality. IMPRESSION: No acute abnormality. No significant change to prior study except better inspiration. WSN: [id number] Ordering Physician: Jaimie Edmonds Dictated By: Marky Garcia MD Dictated Date/Time: 03/30/22 5:44 pm Reviewed By: Marky Garcia MD Signed By: Marky Garcia MD Signed Date/Time: 03/30/22 5:44 pm Transcribed By: CHE Transcribed Date/Time: 03/30/22 5:[address] Cervical spine WO contrast * [facility] , CIS S: TRANSCRIBE Nguyễn Ruiz MD: VERIFY Event Display: Result: Authored Date: [id number] CT Head/Brain W/O Contrast INDICATION: Hx of Present Illness: Pt comes into ED via EMS s p synope, c o dizziness; Reason: Trauma; Clinical Question(s): Hematoma; Order Comment: TECHNIQUE: Noncontrast head CT using axial technique was reconstructed in axial and coronal planes.Noncontrast spiral CT through the cervical spine was formatted in 3 planes. Automatic tube modulation was used for the cervical spine and iterative dose reconstruction was used for both the head and cervical spine to optimize scan parameters and image quality. COMPARISON: CT head and cervical spine from 06/09/2021 Thyroid ultrasound from 12/15/2020 FINDINGS: Blanching Machine Operator View Findings, Lines and Tubes: None. BRAIN AND EXTRA-AXIAL SPACES: No parenchymal hemorrhage, midline shift, or mass effect. Gibson-white matter differentiation is wellpreserved. No acute infarct. Mild to moderate prominence of the ventricles and sulci consistent with parenchymal volume loss. No white matter lesions. No subarachnoid hemorrhage. No subdural or epidural collection. CALVARIUM, SKULL BASE, AND SOFT TISSUES: No fractures or suspicious bony lesions. The paranasal sinuses and mastoid air cells are clear. Visualized orbits and globes are intact. The extracranial soft tissues are unremarkable. CERVICAL SPINE: No fracture. No acute osseous abnormalities. Slight reversal of the normal cervical lordosis is unchanged. No locked or perched facet. Mild degenerative disc disease, greatest at C5-C6 with disc osteophyte complex and perhaps minimal canal stenosis. OTHER BONES: No acute abnormality. CERVICAL SOFT TISSUES AND LUNG APICES: Severe emphysematous changes at the lung apices. Partially with suture line in the right lung apex. Partially calcified hypodense left thyroid nodule measuring 20 mm (302:89), unchanged, previous assessed on ultrasound. Please refer to prior ultrasound report. No specific suspicious for a right paraesophageal lymph node in the upper thorax (302:93). IMPRESSION: No acute abnormality of the head or cervical spine. WSN: [id number] Ordering Physician: Jaimie Edmonds Dictated By: Nguyễn Ruiz MD Dictated Date/Time: 03/30/22 2:35 pm Reviewed By: Nguyễn Ruiz MD Signed By: Nguyễn Ruiz MD Signed Date/Time: 03/30/22 2:35 pm Transcribed By: CHE Transcribed Date/Time: 03/30/22 2:[address] Head WO contrast * [facility] , CIS S: TRANSCRIBE Nguyễn Ruiz MD: VERIFY Event Display: Result: Authored Date: [id number] CT Head/Brain W/O Contrast INDICATION: Hx of Present Illness: Pt comes into ED via EMS s p synope, c o dizziness; Reason: Trauma; Clinical Question(s): Hematoma; Order Comment: TECHNIQUE: Noncontrast head CT using axial technique was reconstructed in axial and coronal planes.Noncontrast spiral CT through the cervical spine was formatted in 3 planes. Automatic tube modulation was used for the cervical spine and iterative dose reconstruction was used for both the head and cervical spine to optimize scan parameters and image quality. COMPARISON: CT head and cervical spine from 06/09/2021 Thyroid ultrasound from 12/15/2020 FINDINGS: Blanching Machine Operator View Findings, Lines and Tubes: None. BRAIN AND EXTRA-AXIAL SPACES: No parenchymal hemorrhage, midline shift, or mass effect. Gibson-white matter differentiation is wellpreserved. No acute infarct. Mild to moderate prominence of the ventricles and sulci consistent with parenchymal volume loss. No white matter lesions. No subarachnoid hemorrhage. No subdural or epidural collection. CALVARIUM, SKULL BASE, AND SOFT TISSUES: No fractures or suspicious bony lesions. The paranasal sinuses and mastoid air cells are clear. Visualized orbits and globes are intact. The extracranial soft tissues are unremarkable. CERVICAL SPINE: No fracture. No acute osseous abnormalities. Slight reversal of the normal cervical lordosis is unchanged. No locked or perched facet. Mild degenerative disc disease, greatest at C5-C6 with disc osteophyte complex and perhaps minimal canal stenosis. OTHER BONES: No acute abnormality. CERVICAL SOFT TISSUES AND LUNG APICES: Severe emphysematous changes at the lung apices. Partially with suture line in the right lung apex. Partially calcified hypodense left thyroid nodule measuring 20 mm (302:89), unchanged, previous assessed on ultrasound. Please refer to prior ultrasound report. No specific suspicious for a right paraesophageal lymph node in the upper thorax (302:93). IMPRESSION: No acute abnormality of the head or cervical spine. WSN: [id number] Ordering Physician: Jaimie Edmonds Dictated By: Nguyễn Ruiz MD Dictated Date/Time: 03/30/22 2:35 pm Reviewed By: Nguyễn Ruiz MD Signed By: Nguyễn Ruiz MD Signed Date/Time: 03/30/22 2:35 pm Transcribed By: CHE Transcribed Date/Time: 03/30/22 2:[address] Abdomen and Pelvis W contrast IV * [facility] , CIS S: TRANSCRIBE Darell Bearden MD: VERIFY Event Display: Result: Authored Date: [id number] CT Abd/Pelvis W/ IV Contrast Only INDICATION: Dizziness, syncope. Abdominal trauma, blunt; TECHNIQUE: Spiral CT through the abdomen and pelvis with IV contrast formatted in 3 planes. 100 cc of Omnipaque 300 was administered intravenously. This study was performed without oral contrast. Weight-based protocol using automatic tube modulation was used to optimize exposure parameters. COMPARISON: 08/24/2017. FINDINGS: LUNG BASES: Extensive emphysematous changes. LIVER: There are a few scattered subcentimeter low-density lesions likely cysts largely unchanged. GALLBLADDER: Multiple layering subcentimeter calculi. BILE DUCTS: No intra or extra hepatic bile duct dilation. SPLEEN: Normal in size and attenuation. PANCREAS: Unremarkable. ADRENAL GLANDS: Unremarkable. KIDNEYS: No calculi or hydronephrosis. No suspicious masses. Scattered cysts largely unchanged. BLADDER: Unremarkable. REPRODUCTIVE ORGANS: Moderately enlarged and heterogeneous. STOMACH, SMALL AND LARGE BOWEL: Redundant moderately stool-filled colon with left-sided colonic diverticulosis. APPENDIX: Normal-appearing. PERITONEUM, OMENTUM AND MESENTERY: No ascites or pneumoperitoneum. No omental or mesenteric lesions. VASCULATURE: Moderate atherosclerotic vascular calcification. No aortic aneurysm. LYMPH NODES: None enlarged. ABDOMINAL WALL: Small fat-containing umbilical hernia. BONES: No acute abnormalities, no focal osseous lesions. IMPRESSION: 1. No evidence of acute process. 2. Cholelithiasis. 3. Diverticulosis. 4. Prostatic enlargement. 5. Other chronic findings as noted. WSN: [id number] Ordering Physician: Jaimie Edmonds Dictated By: Darell Bearden MD Dictated Date/Time: 03/30/22 2:44 pm Reviewed By: Darell Bearden MD Signed By: Darell Bearden MD Signed Date/Time: 03/30/22 2:44 pm Transcribed By: CHE Transcribed Date/Time: 03/30/22 2:35 pm Patient Care team information Care Team Personnel Name: Henok Causey MD Position: [facility] GI MD Member Role: Lifetime Consulting Physician Address: Address: [address] [place] [address], [address] [facility] [place] [address]- Name: Linda Samaniego RN Position: [facility] RN Member Role: Primary Care Nurse Name: Rosette VILLALOBOS, Savita Grover Position: [facility] Physician (General Medicine) Member Role: PCP Address: Address: [address] [place] [address], [address] [place] [address]- Name: Laura Thayer RN Position: [facility] RN Member Role: Primary Care Nurse Name: Dot Dumont RN Position: [facility] RN Member Role: Primary Care Nurse Name: Avis Coker RN Position: [facility] RN Member Role: Primary Care Nurse Name: Anastacia Mckeon RN Position: [facility] RN Supv Member Role: Primary Care Nurse Name: Laura Barnes RN Position: [facility] RN Member Role: Primary Care Nurse Name: Tacho Wall RN Position: [facility] RN Member Role: Primary Care Nurse Name: Yamileth Guerrero RN Position: [facility] RN Member Role: Primary Care Nurse Name: Iram Medel RN Position: [facility] RN Member Role: Primary Care Nurse Name: Anastacia Valdivia RN Position: [facility] SN RN Member Role: Primary Care Nurse Name: Lisa Pena Position: [facility] RN Member Role: Primary Care Nurse Name: Clint Tate Position: [facility] Associate Professional Member Role: ED Physician Insole Reinforcer Address: Address: [address] [facility] [place] [address]- Name: Lisa Johnson RN Position: [facility] ED RN W/OE and Tasks Member Role: Patient Care Provider Name: Renuka Harmon Position: [facility] ED TA [facility] Member Role: Product Safety Tester Name: Jeffrey Blackwell RN Position: [facility] ED RN W/OE and Tasks Name: Sivakumar VILLALOBOS, Becki Aguillon Position: [facility] ED Medicine MD Member Role: ED Attending Physician Address: Address: [address] [place] [address] [place] [address]- [place] Care Team Related Persons Name: SHARITA PASCUAL Address: home [address] [place] [address] Name: TEJINDER MCDOWELL Address: [address] [place] [address] Name: JEAN-PAUL VERGARA Address: home [address] [place] [address]
--- OUTSIDE RECORDS SUMMARY | 2022-11-01 18:50 | XMS_ITS | Continuity of Care Document ---
Author Name Unknown Organization [facility] Address [address] [place] [address]- Care Team Providers Care Learning Facilitator Name Role Phone Jimmy Kerns DO Primary Care Physician [place] [facility] [place](s): 11/17/19 - 12/17/19 [facility] [address] [place] [id number]- [place] Allergies, Adverse Reactions, Alerts Substance Reaction [...] 22:08:02 EST, Aerosol, Route to Pharmacy Electronically, [id number], [facility]/pharmacy #[id number], Compound Start [...]
--- OUTSIDE RECORDS SUMMARY | 2022-11-01 18:50 | XMS_ITS | Continuity of Care Document ---
Author Name Unknown Organization [facility] Address [address] [place] [address]- Care Team Providers Care Film Coater Name Role Phone Jimmy Kerns DO Primary Care Physician [place] [facility] [place](s): 11/10/19 - 05/25/20 [facility] [address] [place] [id number] Attending Physician: Michael Payne MD Admitting Physician: [...] 22:08:02 EST, Aerosol, Route to Pharmacy Electronically, [id number], [facility]/pharmacy #[id number], Compound Start Date: 03/24/18 Stop Date: 04/23/18 [...]
[2022-11-01 18:53] LABS: Alanine Aminotransferase 18 U/L (0-40); Albumin Level 3.8 g/dL (3.5-5.0); Alkaline Phosphatase 50 U/L (39-117); Anion Gap 11 (12-20); Aspartate Amino Transferase 19 U/L (5-37); Bilirubin Total 0.8 mg/dL (0.0-1.0); Blood Urea Nitrogen 14 mg/dL (9-16); Calcium 9.3 mg/dL (8.4-10.2); Carbon Dioxide 25 mmol/L (22-29); Chloride 106 mmol/L (96-108); Creatinine Clr Calc Pharmacy 69.8; Estimated Glomerular Filt Rate > 60; Glucose Random 92 mg/dL (60-115); Lipase 53 U/L (8-78); Sodium 138 mmol/L (135-145); Total Protein 7.1 g/dL (6.5-8.0)
[2022-11-01] MEDS: Albuterol Sulfate (0.083%) 2.5 MG/3 ML VIAL.NEB INHALE (19:22)
[2022-11-01 19:24] VITALS: PULSE 86; RESP 16; O2SAT 95
[2022-11-01 19:45] VITALS: BP 108/59; PULSE 86; RESP 16; TEMP 37.6; O2SAT 95
[2022-11-01] MEDS: Acetaminophen 325 MG TABLET 975 MG PO (19:59)
[2022-11-01 20:13] LABS: Appearance Urine Clear; Color Urine Yellow; Glucose Urine UA Negative (Negative); Leukocyte Esterase Urine Trace (Negative); Nitrite Urine Negative (Negative); PH 6.5 (5.0-9.0); UMIC TRIGGER UACC YES; Urine Blood Negative (Negative); Urine Ketones 15 mg/dL (Negative); Urine Protein Negative (Neg-Trace)
[2022-11-01 20:18] LABS: Bacteria Urine None Seen (None Seen); Hyaline Casts Urine 0-2 /LPF (0-2); RBC Urine 0-2 /HPF (0-2); Squamous Epithelial Cell Urine 0-2 /HPF (0-2); WBC Urine 0-5 /HPF (0-5)
[2022-11-01] MEDS: iohexoL 350 MG/ML 100 ML INFUS..BTL 85 ML IV (21:08)
[2022-11-01 22:27] VITALS: BP 93/63; PULSE 77; RESP 15; O2SAT 96
--- NOTE | 2022-11-01 22:48 | PC.NURSE ---
Pt being transported back to [facility], this RN attempted to call facility multiple times for report with no answer, left a voicemail. Discharge instructions left with EMS.
== END 2022-11-01 22:51 | disposition home or self-care (01) ==
PROVIDERS: Emergency Provider Emergency Medicine; PCP Internal Medicine
DX: S09.90XA Unspecified injury of head, initial encounter (principal); W06.XXXA Fall from bed, initial encounter; R10.9 Unspecified abdominal pain; R07.81 Pleurodynia; Y93.89 Activity, other specified; Y92.032 Bedroom in apartment as the place of occurrence of the external cause; Y99.9 Unspecified external cause status; Z79.82 Long term (current) use of aspirin; Z79.899 Other long term (current) drug therapy
CPT/HCPCS: 36415; 70450; 71045; 74177; 80053; 81001; 81003; 83690; 85025; 93005; 94640; 99284; 99285; Q9967

== ENCOUNTER 2022-11-02 14:12 | Inpatient (IN) | payer OTHER, SELFPAY ==
--- NOTE | ~2022-11-02 | CT_ITS ---
EXAMINATION: CT HEAD WITHOUT CONTRAST CT CERVICAL SPINE WITHOUT CONTRAST CLINICAL INFORMATION: Fall. Altered mental status. COMPARISON: CT head 11/01/2022 TECHNIQUE: Imaging was performed from the skull base to vertex without intravenous administration of contrast. In addition, helical noncontrast CT imaging was acquired through the cervical spine and source images were reviewed along with axial reconstructions and sagittal and coronal MPRs. [This CT examination was performed using dose optimization techniques as appropriate, variously including the following: *Automated exposure control *Adjustment of mA and/or kV according to patient size (this includes techniques or standardized protocols for targeted exams where dose is matched to indication/reason for exam; i.e. extremities or head) *Use of iterative reconstruction technique] DLP: 15.37+15.37+698.27+667.57+281.42 mGy-cm FINDINGS: HEAD: No intracranial mass, hemorrhage, or midline shift is visualized. There is generalized global volume loss. There is moderate prominence of the ventricles and the sulci . There is mild hypodensity of the periventricular white matter due to chronic small vessel ischemic disease. There are vascular calcifications of the internal carotid arteries bilaterally. No extra-axial collections are identified. The paranasal sinuses and mastoid air cells are well aerated. CERVICAL SPINE: There is no evidence of acute cervical spine fracture. Vertebral bodies remain normal in height. Cervical vertebrae have normal alignment. There is multilevel degenerative spondylosis of the cervical spine with disc height narrowing and endplate spurs and facet joint arthrosis No pre- or paravertebral soft tissue abnormality is identified. Limited assessment of the lung apices is unremarkable. CT/CT cervical spine wo IV con IMPRESSION: 1. No acute intracranial pathology. 2. No CT evidence of acute cervical spine fracture or traumatic subluxation
--- NOTE | ~2022-11-02 | CT_ITS ---
EXAMINATION: CT CHEST, ABDOMEN AND PELVIS WITH CONTRAST CLINICAL INFORMATION: Fever COMPARISON: Baseline including 02/23/2022 TECHNIQUE: Multidetector volumetric imaging was performed from the thoracic inlet through the pubic symphysis following administration of oral and 100 mL of Omnipaque 300 intravenous contrast. Sagittal and coronal reformatted images were obtained on the technologist workstation. This CT examination was performed using dose optimization techniques as appropriate, variously including the following: *Automated exposure control *Adjustment of mA and/or kV according to patient size (this includes techniques or standardized protocols for targeted exams where dose is matched to indication/reason for exam; i.e. extremities or head) *Use of iterative reconstruction technique DLP: 1071 mGy-cm FINDINGS: CHEST: LUNGS: Multiple lesions calcified bilaterally unchanged from baseline. Severe bullous emphysematous changes again noted with scarring. There is patchy infiltration at the right base involving the lateral segment middle lobe which could represent focal pneumonia. MEDIASTINUM: The mediastinum is normal. Central vascular structures are unremarkable. No hilar or mediastinal lymphadenopathy. Appearing adenopathy especially at the precarinal and subcarinal levels similar to baseline. PERICARDIUM/PLEURA: There is no significant effusion. No pleural mass or thickening. Extensive coronary artery calcification is a present. Evidence of previous cardiac surgery. CHEST WALL/AXILLA: Unremarkable. ABDOMEN/PELVIS: LIVER, GALLBLADDER, BILIARY TREE: The liver is normal in size, shape, and attenuation. Stable low-density benign-appearing lesions. No biliary ductal dilatation is present. Layering gallstones without acute inflammatory changes. PANCREAS: Unremarkable. SPLEEN: Unremarkable. ADRENAL GLANDS: Unremarkable. KIDNEYS AND URETERS: No hydronephrosis. Multiple renal cortical cysts appear simple and stable Bosniak 1. No follow-up indicated. BLADDER: Unremarkable. GASTROINTESTINAL TRACT: The small and large bowel are again notable for top diverticulosis.. The appendix is unremarkable. ABDOMINAL WALL: No hernia is demonstrated. LYMPH NODES: Normal. VASCULAR: Unremarkable. PELVIC VISCERA: Marked prostamegaly. OSSEOUS STRUCTURES: Unremarkable. CT/CT abdomen pelvis w IV con IMPRESSION: 1. Focal airspace disease right middle lobe which may represent focal pneumonia. 2. Stable chronic findings as above.
[2022-11-02 14:22] VITALS: BP 110/56; BP 96/59; PULSE 62; PULSE 68; RESP 18; TEMP 36.8; O2SAT 97; BMI 26.0
[2022-11-02 15:34] VITALS: BP 82/58; PULSE 68; RESP 15; O2SAT 98
--- NOTE | 2022-11-02 15:55 | PC.NURSE ---
at bedside, reporting that pt has had AMS since coming home last night. unable to feed himself, has dementia at baseline but not to this extent according to his .
[2022-11-02 16:28] LABS: Appearance Urine Clear; Color Urine Dark Yellow; Glucose Urine UA Negative (Negative); Leukocyte Esterase Urine Trace (Negative); Nitrite Urine Negative (Negative); UMIC TRIGGER UACC YES; Urine Blood Negative (Negative); Urine Ketones 15 mg/dL (Negative); Urine Protein Negative (Neg-Trace)
[2022-11-02 16:31] LABS: Bacteria Urine None Seen (None Seen); Hyaline Casts Urine 0-2 /LPF (0-2); RBC Urine 0-2 /HPF (0-2); Squamous Epithelial Cell Urine 0-2 /HPF (0-2); WBC Urine 0-5 /HPF (0-5)
--- NOTE | 2022-11-02 16:32 | PC.NURSE ---
Provider Neelam at bedside. pt able to follow directions during exam. pt displacing some confusion when answering questions.
--- NOTE | 2022-11-02 16:38 | ECG_ITS ---
Test Reason : AMS, weakness Blood Pressure : / mmHG Vent. Rate : 078 BPM Atrial Rate : 000 BPM P-R Int : 000 ms QRS Dur : 110 ms QT Int : 362 ms P-R-T Axes : 000 119 040 degrees QTc Int : 412 ms Poor data quality, interpretation may be adversely affected Normal sinus rhythm Right axis deviation Low voltage QRS Abnormal ECG When compared with ECG of 01-NOV-2022 18:15, No significant change was found Referred By: Debra López Electronically Signed By:SHASTA GARCIA
--- NOTE | 2022-11-02 16:49 | ED.FALL ---
HPI - Fall General Chief Complaint: Fall Stated Complaint: FALL R SIDED ABD PAIN Time Seen by Provider: 11/02/22 16:10 Source: family () and EMS Mode of arrival: EMS Limitations: altered mental status History of Present Illness HPI Narrative: 82-year-old male with a history of dementia, COPD on 3 L of oxygen, osteoarthritis, AFib on aspirin only, seizure disorder, Crohn/ulcerative colitis on Entyvio, hypertension, BPH presents to the ER with concern for altered mental status. The patient is here with his who provides the history of present illness. She tells me the patient does live in assisted living and she live separately. Over the last few weeks he has had increasing falls and she has been in discussion with his primary care doctor that he may need a higher level of care. She tells me the patient was seen here yesterday after a possible fall and had a CT scan of his head, CT abdomen and pelvis, chest x-ray, labs and was discharged back home. Today around 10:00 o'clock when she spoke to him on the phone he seemed increasingly confused to her. The went to see the patient and he was just getting out of bed which was unusual for him. She does tell me for the last 3 days patient has been spending more time in bed and does appear generally weak from his baseline. She did try to get him to eat some soup today but the patient was unable to get the spoon to his mouth with his right hand or hold the cup with his left hand. She is concerned that he is increasingly confused from his baseline. Of note patient is incontinent at baseline. He does use of brief. She did tell me the patient has had some increasing urgency and frequency over the last few days. Related Data Home Medications Medication Instructions Recorded Confirmed atorvastatin 10 mg tablet 10 mg PO DAILY 11/29/20 11/02/22 propafenone 225 mg tablet 225 mg PO BID 11/29/20 11/02/22 quetiapine 25 mg tablet 12.5 mg PO TID 11/29/20 11/02/22 tamsulosin 0.4 mg capsule 0.4 mg PO DAILY 11/29/20 11/02/22 vortioxetine 10 mg tablet 10 mg PO BID 11/29/20 11/02/22 (Trintellix) multivitamin 1 tab PO DAILY 01/06/21 11/02/22 mesalamine 0.375 gram 1.5 g PO QAM 01/23/21 11/02/22 capsule,extended release 24 hr divalproex 500 mg tablet,delayed 500 mg PO BID 04/26/22 11/02/22 release docusate sodium 100 mg capsule 100 mg PO DAILY 04/26/22 11/02/22 fexofenadine 60 mg tablet 60 mg PO DAILY PRN Allergy Symptoms 04/26/22 11/02/22 Oxygen Home Use 10/25/22 nebulizers 10/25/22 aspirin 81 mg tablet,delayed 81 mg PO DAILY 11/02/22 11/02/22 release Previous Rx's Medication Instructions Recorded albuterol sulfate 90 mcg/actuation 2 inh inhalation Q6H PRN shortness 11/29/20 aerosol inhaler of breath or wheezing 30 days #18 grams Flovent HFA 110 mcg/actuation 2 puff inhalation BID 30 days #12 12/26/21 aerosol inhaler (fluticasone grams propionate) tiotropium 2.5 mcg-olodaterol 2.5 2 puff PO DAILY 30 days #4 grams 01/18/22 mcg/actuation mist for inhalation (Stiolto Respimat) ipratropium 0.5 mg-albuterol 3 mg 3 ml inhalation BID 30 days #180 mL 04/27/22 (2.5 mg base)/3 mL nebulization soln Allergies Allergy/AdvReac Type Severity Reaction Status Date / Time Sulfa (Sulfonamide Allergy Severe Hives/Rash Verified 10/25/22 14:08 Antibiotics) theophylline Allergy Severe Seizure Verified 10/25/22 14:08 trospium Allergy Severe Constipatio Verified 10/25/22 14:08 n Adhesive Tape Allergy Severe Rash Uncoded 10/25/22 14:08 Review of Systems Review of Systems: Yes Unobtainable due to mental status Neurologic: Denies Abnormal speech present [facility] Past Medical History Attestation statement: The following information was validated with the patient. Source: old records reviewed and nursing notes reviewed Medical History Acute and chronic respiratory failure Acute Crohn's disease Atrial fibrillation BPH (benign prostatic hyperplasia) Chest pain Chronic respiratory failure COPD (chronic obstructive pulmonary disease) case management patient Dementia Hyperlipidemia Hypertension Osteoarthritis Pneumonia Pulmonary nodules Rib fractures Seizure Skin cancer Family History Family History Father ALS (amyotrophic lateral sclerosis) Brother ALS (amyotrophic lateral sclerosis) Social History Social History Alcohol intake: never Patient Tobacco Use Status: Former Tobacco user Tobacco use type: Cigarette Years Smoked: 11 years ago Smoked in Last 30 Days: No Use of substances other than those prescribed or required for medical reasons: No Advance Directives: Yes Advance Directives Information Provided: Yes Advance Directives on File: No service: No Physical Exam Vital Signs: Vital Signs: Last Vital Signs Temp 100.3 F 11/02/22 21:48 Pulse 74 11/02/22 21:48 Resp 17 11/02/22 21:48 BP 95/54 L 11/02/22 21:48 Pulse Ox 95 11/02/22 21:48 O2 Del Method Nasal Cannula 11/02/22 21:48 O2 Flow Rate 3 11/02/22 21:48 Oxygen Flow Rate 3 11/02/22 14:22 BMI result Body Mass Index 26.0 Const: General: cooperative, healthy appearing, comfortable and no acute distress Limitations: altered mental status HEENT: Head: Yes normal to inspection Ears: hearing grossly normal bilaterally General nose exam: Normal external nose present Face and sinus: Yes normal facial exam Mouth: Normal oral and palatal mucosa present Throat: Yes posterior oropharynx normal Eyes: General: appearance normal, both eyes and all related structures Pupils: Equal, round and reactive pupils present Neck: Neck: Yes normal visual inspection Chest: Chest palpation & inspection: normal inspection of the chest Resp: Effort & Inspection: normal respiratory effort Auscultation: clear to auscultation bilaterally Cardio: Rate: regular rate Rhythm: regular rhythm Peripheral pulses: Peripheral pulses 2+ throughout GI: Inspection: Yes normal to inspection Palpation (GI): Soft to palpation and Tenderness to palpation present (GI) (Mild right lower quadrant abdominal pain with no rebound or guard) Auscultation: normal bowel sounds Back/Spine/Pelvis: Thoracic/Lumbar Spine: thoracic and lumbar spine normal to inspection Skin: General skin exam: no rashes or lesions noted Neuro: General: moves all extremities, no focal motor deficits, normal sensation to monofilament and Unable to assess gait Cranial nerves: Yes Equal, round and reactive pupils present Cognition (Neuro): normal cognition Speech: No Abnormal speech present Gait exam (Neuro): Unable to assess gait Motor exam (neuro): 5/5 motor strength present throughout Sensory Exam: Normal double simultaneous stimulation for sensation Extrem: General: Yes normal to inspection Course Course Course Narrative: 1829-UA negative for infection. Labs show mild leukocytosis similar to previous. Additional labs are unremarkable. Patient has temperature of 100.8 degrees. Will give Tylenol. Will obtain CT abdomen and pelvis/chest/head/cervical spine. Reevaluation(s) Reevaluation #1: 2044-CT shows right upper lobe pneumonia. At this time infection is suspected. Antibiotics ordered. Patient will be admitted Medications Administered Generic Name Dose Route Start Last Admin Trade Name Freq PRN Reason Stop Dose Admin Azithromycin 500 mg/ Sodium 250 mls @ 125 mls/hr 11/02/22 20:45 11/02/22 21:50 Chloride IV 11/02/22 22:44 125 mls/hr ONCE ONE Administration Discontinued Medications Generic Name Dose Route Start Last Admin Trade Name Freq PRN Reason Stop Dose Admin Acetaminophen 975 mg 11/02/22 18:25 11/02/22 18:33 Acetaminophen 325 Mg Tablet PO 11/02/22 18:26 975 mg ONCE ONE Administration Sodium Chloride 1,000 mls @ 999 mls/hr 11/02/22 16:39 11/02/22 18:45 Ns IV 11/02/22 17:39 Infused .Q1H1M STA Infusion Ceftriaxone Sodium 1 gm/ 50 mls @ 100 mls/hr 11/02/22 20:45 11/02/22 21:44 Sodium Chloride IV 11/02/22 21:14 Infused ONCE ONE Infusion Ketorolac Tromethamine 15 mg 11/02/22 19:59 11/02/22 20:17 Ketorolac Tromethamine 15 Mg/Ml Vial IVPUSH 11/02/22 20:00 15 mg ONCE ONE Administration Medical Decision Making Medical Decision Making [facility] Narrative: 82-year-old male with a history of dementia coming from assisted living with concern for increasing confusion from baseline since yesterday, generalized weakness, decreased oral intake, urinary urgency/frequency, right lower abdominal pain. Here with the who provides most of the history of present illness. Patient is confused per . She is also concerned that patient needs a higher level of care from his current assisted living On exam patient is alert, confused. No other focal neurological deficit. He has mild right lower quadrant abdominal pain with no rebound or guarding. No CVA tenderness. Will obtain labs, UA Will review records from yesterday and determine if patient needs additional imaging If medical workup is negative patient may need a physical therapy evaluation and case management involvement Differential Diagnosis Differential Diagnoses: The differential diagnosis associated with the presentation includes Deconditioning Dementia/delirium Urinary tract infection ICH/cva Dehydration Admission/Observation Consideration of admission/observation: Escalation of care including admission/observation considered see course of care Consult Healthcare Provider Management of the patient was discussed with: Hospitalist I spoke to Dr Bowles who accepted admission Lab Data MDM Lab Attestation statement: I reviewed the patient's lab results. Mild leukocytosis 11/02/22 17:46 11/02/22 17:46 Labs: Lab Results 11/02/22 11/02/22 11/02/22 Range/Units 16:15 17:07 17:46 WBC 13.2 H (4.8-10.8) X10*3/uL RBC 4.76 (4.60-5.80) X10*6/uL Hgb 15.7 (14.0-18.0) g/dl Hct 47.5 (42.0-52.0) % MCV 99.8 H (80.0-98.0) fL MCH 33.0 (27.0-33.0) pg MCHC 33.1 (31.0-36.0) g/dl RDW 13.7 (11.0-16.0) % Plt Count 138 L (160-400) X10*3/uL MPV 9.8 (9.4-12.4) fL Immature Gran % (Auto) 0.4 (0.0-0.4) % Neut % (Auto) 74.3 H (45-73) % Lymph % (Auto) 11.6 L (20-40) % Daniels % (Auto) 12.5 H (2-11) % Eos % (Auto) 0.9 (0-4) % Baso % (Auto) 0.3 (0-2) % Lymph # (Auto) 1.5 (1.2-4.9) X10*3/uL Daniels # (Auto) 1.7 H (0.1-1.2) X10*3/uL Eos # (Auto) 0.1 (0.0-0.4) X10*3/uL Baso # (Auto) 0.0 (0.0-0.2) X10*3/uL Abs Immat Gran (auto) 0.05 H (0.00-0.03) X10*3/uL Absolute Neuts (auto) 9.8 H (2.0-8.3) x10*3/uL Absolute Nucleated RBC 0.000 (0.0-0.012) X10*3/uL Nucleated RBC % (auto) 0.0 (0.0-0.2) /100WBC Smear Tech's Comments VERIFIED Sodium (135-145) mmol/L Potassium (3.3-5.1) mmol/L Chloride (96-108) mmol/L Carbon Dioxide (22-29) mmol/L Anion Gap (12-20) BUN (9-16) mg/dL Creatinine (0.5-1.4) mg/dL Estim Creat Clear Calc Estimated GFR Random Glucose (60-115) mg/dL Lactic Acid (0.5-2.0) mmol/L Calcium (8.4-10.2) mg/dL Magnesium (1.6-2.6) mg/dL Total Bilirubin (0.0-1.0) mg/dL Direct Bilirubin (0.0-0.5) mg/dL AST (5-37) U/L ALT (0-40) U/L Alkaline Phosphatase (39-117) U/L Total Creatine Kinase (38-174) U/L Troponin I High Sens (<3.5-35.0) ng/L Total Protein (6.5-8.0) g/dL Albumin (3.5-5.0) g/dL Urine Color Dark Yellow Urine Appearance Clear Urine pH 6.0 (5.0-9.0) Ur Specific [place] 1.020 (1.005-1.025) Urine Protein Negative (Neg-Trace) mg/dL Urine Glucose (UA) Negative (Negative) mg/dL Urine Ketones 15 (Negative) mg/dL Urine Blood Negative (Negative) Urine Nitrite Negative (Negative) Ur Leukocyte Esterase Trace H (Negative) Urine RBC 0-2 (0-2) /HPF Urine WBC 0-5 (0-5) /HPF Ur Squamous Epith Cells 0-2 (0-2) /HPF Urine Bacteria None Seen (None Seen) Hyaline Casts 0-2 (0-2) /LPF COVID-19 (BIANKA) Negative (Negative) COVID-19 Clin Com See Note 11/02/22 11/02/22 11/02/22 Range/Units 17:46 17:46 17:46 WBC (4.8-10.8) X10*3/uL RBC (4.60-5.80) X10*6/uL Hgb (14.0-18.0) g/dl Hct (42.0-52.0) % MCV (80.0-98.0) fL MCH (27.0-33.0) pg MCHC (31.0-36.0) g/dl RDW (11.0-16.0) % Plt Count (160-400) X10*3/uL MPV (9.4-12.4) fL Immature Gran % (Auto) (0.0-0.4) % Neut % (Auto) (45-73) % Lymph % (Auto) (20-40) % Daniels % (Auto) (2-11) % Eos % (Auto) (0-4) % Baso % (Auto) (0-2) % Lymph # (Auto) (1.2-4.9) X10*3/uL Daniels # (Auto) (0.1-1.2) X10*3/uL Eos # (Auto) (0.0-0.4) X10*3/uL Baso # (Auto) (0.0-0.2) X10*3/uL Abs Immat Gran (auto) (0.00-0.03) X10*3/uL Absolute Neuts (auto) (2.0-8.3) x10*3/uL Absolute Nucleated RBC (0.0-0.012) X10*3/uL Nucleated RBC % (auto) (0.0-0.2) /100WBC Smear Tech's Comments Sodium 139 (135-145) mmol/L Potassium 3.8 (3.3-5.1) mmol/L Chloride 103 (96-108) mmol/L Carbon Dioxide 29 (22-29) mmol/L Anion Gap 11 L (12-20) BUN 13 (9-16) mg/dL Creatinine 0.92 (0.5-1.4) mg/dL Estim Creat Clear Calc 66.7 Estimated GFR > 60 Random Glucose 104 (60-115) mg/dL Lactic Acid 0.9 (0.5-2.0) mmol/L Calcium 9.4 (8.4-10.2) mg/dL Magnesium 2.0 (1.6-2.6) mg/dL Total Bilirubin 1.2 H (0.0-1.0) mg/dL Direct Bilirubin 0.4 (0.0-0.5) mg/dL AST 16 (5-37) U/L ALT 16 (0-40) U/L Alkaline Phosphatase 51 (39-117) U/L Total Creatine Kinase 30 L (38-174) U/L Troponin I High Sens 3.4 (<3.5-35.0) ng/L Total Protein 7.7 (6.5-8.0) g/dL Albumin 3.9 (3.5-5.0) g/dL Urine Color Urine Appearance Urine pH (5.0-9.0) Ur Specific [place] (1.005-1.025) Urine Protein (Neg-Trace) mg/dL Urine Glucose (UA) (Negative) mg/dL Urine Ketones (Negative) mg/dL Urine Blood (Negative) Urine Nitrite (Negative) Ur Leukocyte Esterase (Negative) Urine RBC (0-2) /HPF Urine WBC (0-5) /HPF Ur Squamous Epith Cells (0-2) /HPF Urine Bacteria (None Seen) Hyaline Casts (0-2) /LPF COVID-19 (BIANKA) (Negative) COVID-19 Clin Com Independent Interpretation I performed an independent interpretation of an: EKG and CT Scan Interpretation: Independetely reviewed the EKG which has artifact which is present it is normal sinus rhythm with a rate of [address] scan and agree with the radiology report Radiology Impression Discussion of test interpretation with radiology: I have reviewed the radiologist's reading. Radiologist Impression: FINDINGS: CHEST: LUNGS: Multiple lesions calcified bilaterally unchanged from baseline. Severe bullous emphysematous changes again noted with scarring. There is patchy infiltration at the right base involving the lateral segment middle lobe which could represent focal pneumonia. MEDIASTINUM: The mediastinum is normal. Central vascular structures are unremarkable. No hilar or mediastinal lymphadenopathy. Appearing adenopathy especially at the precarinal and subcarinal levels similar to baseline. PERICARDIUM/PLEURA: There is no significant effusion. No pleural mass or thickening. Extensive coronary artery calcification is a present. Evidence of previous cardiac surgery. CHEST WALL/AXILLA: Unremarkable. ABDOMEN/PELVIS: LIVER, GALLBLADDER, BILIARY TREE: The liver is normal in size, shape, and attenuation. Stable low-density benign-appearing lesions. No biliary ductal dilatation is present. Layering gallstones without acute inflammatory changes. PANCREAS: Unremarkable. SPLEEN: Unremarkable. ADRENAL GLANDS: Unremarkable. KIDNEYS AND URETERS: No hydronephrosis. Multiple renal cortical cysts appear simple and stable Bosniak 1. No follow-up indicated. BLADDER: Unremarkable. GASTROINTESTINAL TRACT: The small and large bowel are again notable for top diverticulosis.. The appendix is unremarkable. ABDOMINAL WALL: No hernia is demonstrated. ? LYMPH NODES: Normal. VASCULAR: Unremarkable. PELVIC VISCERA: Marked prostamegaly. OSSEOUS STRUCTURES: Unremarkable.? CT/CT chest w IV con IMPRESSION: 1.? Focal airspace disease right middle lobe which may represent focal pneumonia. 2.? Stable chronic findings as above. [place] [id number] CT Scan Report Signed Patient: Suman Rizzo MR#: [id number] : 1940 Acct:[id number] Age/Sex: 82 / M ADM Date: 11/02/22 Loc: HO.ED Attending Dr: Ordering Physician: Debra Moon NP Date of Service: 11/02/22 Procedure(s): CT head/brain wo IV con Accession Number(s): [id number] cc: Debra Moon NP~ EXAMINATION: CT HEAD WITHOUT CONTRAST CT CERVICAL SPINE WITHOUT CONTRAST CLINICAL INFORMATION: Fall. Altered mental status.? COMPARISON: CT head 11/01/2022 TECHNIQUE: Imaging was performed from the skull base to vertex without intravenous administration of contrast. In addition, helical noncontrast CT imaging was acquired through the cervical spine and source images were reviewed along with axial reconstructions and sagittal and coronal MPRs. [This CT examination was performed using dose optimization techniques as appropriate, variously including the following: *Automated exposure control *Adjustment of mA and/or kV according to patient size (this includes techniques or standardized protocols for targeted exams where dose is matched to indication/reason for exam; i.e. extremities or head) *Use of iterative reconstruction technique] DLP: 15.37+15.37+698.27+667.57+281.42 mGy-cm FINDINGS: HEAD: No intracranial mass, hemorrhage, or midline shift is visualized. There is generalized global volume loss. There is moderate prominence of the ventricles and the sulci . There is mild hypodensity of the periventricular white matter due to chronic small vessel ischemic disease. There are vascular calcifications of the internal carotid arteries bilaterally. No extra-axial collections are identified. The paranasal sinuses and mastoid air cells are well aerated. CERVICAL SPINE: There is no evidence of acute cervical spine fracture. Vertebral bodies remain normal in height. Cervical vertebrae have normal alignment. There is multilevel degenerative spondylosis of the cervical spine with disc height narrowing and endplate spurs and facet joint arthrosis No pre- or paravertebral soft tissue abnormality is identified. Limited assessment of the lung apices is unremarkable. CT/CT head/brain wo IV con IMPRESSION: 1. No acute intracranial pathology. 2. No CT evidence of acute cervical spine fracture or traumatic subluxation ?? Independent Historian Clinical information obtained from an independent historian. History obtained from or confirmed by: Spouse and EMS External Record Review I reviewed the ER records from yesterday after the concern for the fall. Patient had a CT of his head which showed no intracranial hemorrhage, CT was abdomen and pelvis which showed gallstones but no other acute abdominal pathology, chest x-ray which showed no acute abnormality. He also had a CBC, chemistries, UA Critical Care Time Critical Care Time Critical Care Time: Yes Total Critical Care Time: 60 Attestation: Discussion with patient, family, review of previous records, discussion with hospitalist for admission, Discharge Plan Discharge Clinical Impression: Pneumonia, Acute metabolic encephalopathy, Leukocytosis, Acute febrile illness Patient Disposition: Admitted As Inpatient
[2022-11-02 17:33] LABS: COVID-19 Test Negative (Negative); IDNOW Serial# 9DB6401D
[2022-11-02] MEDS: 0.9 % Sodium Chloride 1,000 ML 999 ML IV (17:39)
[2022-11-02 17:59] LABS: Basophils Percent Auto 0.3 % (0-2); Eosinophils Absolute Auto 0.1 X10*3/uL (0.0-0.4); Eosinophils Percent Auto 0.9 % (0-4); Hematocrit 47.5 % (42.0-52.0); Hemoglobin 15.7 g/dl (14.0-18.0); Imm Gran Abs Auto 0.05 X10*3/uL (0.00-0.03); Imm Gran Pct Auto 0.4 % (0.0-0.4); Lymphocytes Absolute Auto 1.5 X10*3/uL (1.2-4.9); Lymphocytes Percent Auto 11.6 % (20-40); MANUAL DIFF FLAG SCAN; Mean Corpuscular HGB Conc 33.1 g/dl (31.0-36.0); Mean Corpuscular Volume 99.8 fL (80.0-98.0); Mean Platelet Volume 9.8 fL (9.4-12.4); Monocytes Absolute Auto 1.7 X10*3/uL (0.1-1.2); Monocytes Percent Auto 12.5 % (2-11); Neutrophils Absolute Auto 9.8 x10*3/uL (2.0-8.3); Neutrophils Percent Auto 74.3 % (45-73); Platelet Count 138 X10*3/uL (160-400); Red Blood Count 4.76 X10*6/uL (4.60-5.80); Red Cell Distribution Width 13.7 % (11.0-16.0); SCAN SMEAR FLAG 1; White Blood Count 13.2 X10*3/uL (4.8-10.8)
[2022-11-02 18:12] LABS: Lactic Acid 0.9 mmol/L (0.5-2.0)
[2022-11-02 18:13] LABS: Alanine Aminotransferase 16 U/L (0-40); Albumin Level 3.9 g/dL (3.5-5.0); Alkaline Phosphatase 51 U/L (39-117); Anion Gap 11 (12-20); Aspartate Amino Transferase 16 U/L (5-37); Bilirubin Direct 0.4 mg/dL (0.0-0.5); Bilirubin Total 1.2 mg/dL (0.0-1.0); Blood Urea Nitrogen 13 mg/dL (9-16); Calcium 9.4 mg/dL (8.4-10.2); Carbon Dioxide 29 mmol/L (22-29); Chloride 103 mmol/L (96-108); Creatinine Clr Calc Pharmacy 66.7; Estimated Glomerular Filt Rate > 60; Glucose Random 104 mg/dL (60-115); Potassium 3.8 mmol/L (3.3-5.1); Sodium 139 mmol/L (135-145); Total Protein 7.7 g/dL (6.5-8.0)
[2022-11-02 18:17] LABS: SLIDE REVIEW VERIFIED
[2022-11-02 18:19] LABS: Troponin-I High Sensitivity 3.4 ng/L (<3.5-35.0)
[2022-11-02 18:25] VITALS: BP 90/68; PULSE 63; RESP 17; TEMP 38.2; O2SAT 98
[2022-11-02] MEDS: Acetaminophen 325 MG TABLET 975 MG PO (18:33)
--- NOTE | 2022-11-02 18:43 | PC.NURSE ---
rectal temp of 100.8. provider Neelam aware. tylenol given per MAR, pt reports chills, very tremulous. pt incont of urine, assist with washing and changing.
--- NOTE | 2022-11-02 19:31 | PC.NURSE ---
Assumed care of pt. Pt lying nostretcher, aid and prevoius shift RN at bedside changing pt - oncintinent of urine. planning for condom catheter. at bedside. Pt AxO x 1 at [address] time[address] Pending CT results and disposition.
[2022-11-02 19:56] VITALS: TEMP 38.5
[2022-11-02 19:58] VITALS: BP 106/64; PULSE 77; RESP 17; O2SAT 96
[2022-11-02] MEDS: Ketorolac Tromethamine 15 MG/ML VIAL IVPUSH (20:17)
[2022-11-02] MEDS: cefTRIAXone sodium 1 GM in 0.9 % Sodium Chloride 50 ML IV (20:58)
--- NOTE | 2022-11-02 21:17 | PC.NURSE ---
leaving for home, security camera placed in room for safety.
--- NOTE | 2022-11-02 21:19 | PHA.MEDREC ---
Pharmacy Consult ? Medication Reconciliation Pharmacy has completed the medication reconciliation. Medication list from [facility]. Rukhsana looks DC'd per list however per Dr. Farnsworth note from 10/26/22 and patient's , patient should be taking medicaiton. Jessica Domínguez, PharmD
[2022-11-02 21:48] VITALS: BP 95/54; PULSE 74; RESP 17; TEMP 37.9; O2SAT 95
[2022-11-02] MEDS: Azithromycin 500 MG in 0.9 % Sodium Chloride 250 ML 125 MG IV (21:50)
--- NOTE | 2022-11-02 22:08 | P.HPHOSP_ITS ---
History of Present Illness Date of Service: 11/02/22 Chief Complaint: cough 82-year-old male with past medical history of COPD on 3 L of baseline oxygen, osteoarthritis, dementia, AFib on aspirin only, seizure disorder, Crohn's ulcerative colitis, hypertension, BPH comes into the hospital with confusion. On my interview patient is alert oriented to self and place, able to answer questions appropriately. He was brought into the hospital by his for increased confusion and encephalopathy. It appears the patient has been having increased falls over the last few weeks. Patient lives in assisted living and she lives independently. Of note patient was seen in the hospital on day prior after having a fall, his workup was negative and he was sent back home. Today this morning when his spoke to him over the phone he seemed increasingly confused, patient reports that he has been feeling short of breath, and has had a cough for the past 2 days. He reports feeling slight chills, but has had no chest pain, no abdominal pain nausea or vomiting, no diarrhea constipation, no urinary symptoms and no lower extremity edema On arrival to the ED patient has a fever of 101.3 Labs are significant for WBC count of 13.2, BNP negative, UA negative, Chest CT shows foci airspace disease right middle lobe Patient started on IV antibiotics will be admitted Review of Systems Review of Systems: Yes all other systems are reviewed and are negative COUNTS INCLUDE 234 BEDS AT THE [facility] Medical History Acute and chronic respiratory failure Acute Crohn's disease Atrial fibrillation BPH (benign prostatic hyperplasia) Chest pain Chronic respiratory failure COPD (chronic obstructive pulmonary disease) case management patient Dementia Hyperlipidemia Hypertension Osteoarthritis Pneumonia Pulmonary nodules Rib fractures Seizure Skin cancer Family History Father ALS (amyotrophic lateral sclerosis) Brother ALS (amyotrophic lateral sclerosis) Social History Alcohol intake: never Patient Tobacco Use Status: Former Tobacco user Tobacco use type: Cigarette Years Smoked: 11 years ago Smoked in Last 30 Days: No Use of substances other than those prescribed or required for medical reasons: No Advance Directives: Yes Advance Directives Information Provided: Yes Advance Directives on File: No service: No Meds Allergies Allergy/AdvReac Type Severity Reaction Status Date / Time Sulfa (Sulfonamide Allergy Severe Hives/Rash Verified 10/25/22 14:08 Antibiotics) theophylline Allergy Severe Seizure Verified 10/25/22 14:08 trospium Allergy Severe Constipatio Verified 10/25/22 14:08 n Adhesive Tape Allergy Severe Rash Uncoded 10/25/22 14:08 Active Medications: Current Medications Acetaminophen (Acetaminophen 325 Mg Tablet) 650 mg PO Q6H PRN PRN Reason: Pain, Mild (Pain Scale 1-3) Albuterol/Ipratropium (Albuterol/Iprat 2.5/0.5mg 3 Ml Ampul.Neb) 3 ml INHALE RQ4H PRN PRN Reason: Shortness of Breath/Wheezing Albuterol/Ipratropium (Albuterol/Iprat 2.5/0.5mg 3 Ml Ampul.Neb) 3 ml INHALE RQ4H WHILE AWAKE [facility] Docusate Sodium (Docusate Sodium 100 Mg Capsule) 100 mg PO DAILY PRN PRN Reason: Constipation Enoxaparin Sodium (Enoxaparin Sodium 40 Mg/0.4 Ml Syringe) 40 mg SUBCUT Q24H [facility] Azithromycin 500 mg/ Sodium (Chloride) 250 mls @ 125 mls/hr IV ONCE ONE Stop: 11/02/22 22:44 Last Admin: 11/02/22 21:50 Dose: 125 mls/hr Ceftriaxone Sodium 1 gm/ (Sodium Chloride) 50 mls @ 100 mls/hr IV Q24H [facility] Azithromycin 500 mg/ Sodium (Chloride) 250 mls @ 125 mls/hr IV Q24H [facility] Lactated Ringer's (Lr) 1,000 mls @ 999 mls/hr IV .Q1H1M [facility] Stop: 11/02/22 23:15 Ondansetron HCl (Ondansetron Hcl 4 Mg/2 Ml Vial) 4 mg IVPUSH Q8H PRN PRN Reason: Nausea and Vomiting Sodium Chloride (0.9 % Sodium Chloride Flush 3 Ml Syringe) 3 ml IVFLUSH QSHIFT [facility] Home Medications Medication Instructions Recorded Confirmed Last Taken Type atorvastatin 10 mg tablet 10 mg PO DAILY 11/29/20 11/02/22 11/02/22 History propafenone 225 mg tablet 225 mg PO BID 11/29/20 11/02/22 11/02/22 History quetiapine 25 mg tablet 12.5 mg PO TID 0911/02/22 11/02/22 History tamsulosin 0.4 mg capsule 0.4 mg PO DAILY 11/29/20 11/02/22 11/02/22 History vortioxetine 10 mg tablet 10 mg PO BID 11/29/20 11/02/22 11/02/22 History (Trintellix) multivitamin 1 tab PO DAILY 01/06/21 11/02/22 11/02/22 History mesalamine 0.375 gram 1.5 g PO QAM 01/23/21 11/02/22 11/02/22 History capsule,extended release 24 hr divalproex 500 mg tablet,delayed 500 mg PO BID 04/26/22 11/02/22 11/02/22 History release docusate sodium 100 mg capsule 100 mg PO DAILY 04/26/22 11/02/22 11/02/22 History fexofenadine 60 mg tablet 60 mg PO DAILY PRN Allergy Symptoms 04/26/22 11/02/22 Unknown History Oxygen Home Use 10/25/22 Unknown History nebulizers 10/25/22 Unknown History aspirin 81 mg tablet,delayed 81 mg PO DAILY 11/02/22 11/02/22 11/02/22 History release Physical Exam Vital Signs and Narrative: Vital Signs: Last Vital Signs Temp 100.3 F 11/02/22 21:48 Pulse 74 11/02/22 21:48 Resp 17 11/02/22 21:48 BP 95/54 L 11/02/22 21:48 Pulse Ox 95 11/02/22 21:48 O2 Del Method Nasal Cannula 11/02/22 21:48 O2 Flow Rate 3 11/02/22 21:48 Oxygen Flow Rate 3 11/02/22 14:22 BMI result Body Mass Index 26.0 Const: Other: Alert to self and place General: cooperative and no acute distress Eyes: General: appearance normal, both eyes and all related structures Resp: Other: Right lower lobe rhonchi Effort & Inspection: normal respiratory effort Cardio: Rate: regular rate Rhythm: regular rhythm GI: Palpation (GI): Soft to palpation Auscultation: normal bowel sounds Skin: General skin exam: no rashes or lesions noted Extrem: General: Yes normal to inspection and Yes no pedal edema Results Labs 11/02/22 17:46 11/02/22 17:46 Labs: Laboratory Results - last 24 hr 11/02/22 11/02/22 11/02/22 16:15 17:07 17:46 MCV 99.8 H MCH 33.0 MCHC 33.1 RDW 13.7 Plt Count 138 L MPV 9.8 Immature Gran % (Auto) 0.4 Neut % (Auto) 74.3 H Lymph % (Auto) 11.6 L [place] % (Auto) 12.5 H Eos % (Auto) 0.9 Baso % (Auto) 0.3 Lymph # (Auto) 1.5 [place] # (Auto) 1.7 H Eos # (Auto) 0.1 Baso # (Auto) 0.0 Abs Immat Gran (auto) 0.05 H Absolute Neuts (auto) 9.8 H Absolute Nucleated RBC 0.000 Nucleated RBC % (auto) 0.0 Smear Tech's Comments VERIFIED Anion Gap Estim Creat Clear Calc Estimated GFR Random Glucose Lactic Acid Calcium Magnesium Total Bilirubin Direct Bilirubin AST ALT Alkaline Phosphatase Total Creatine Kinase Total Protein Albumin Urine Color Dark Yellow Urine Appearance Clear Urine pH 6.0 Ur Specific [place] 1.020 Urine Protein Negative Urine Glucose (UA) Negative Urine Ketones 15 Urine Blood Negative Urine Nitrite Negative Ur Leukocyte Esterase Trace H Urine RBC 0-2 Urine WBC 0-5 Ur Squamous Epith Cells 0-2 Urine Bacteria None Seen Hyaline Casts 0-2 COVID-19 (BIANKA) Negative COVID-19 Clin Com See Note 11/02/22 11/02/22 17:46 17:46 MCV MCH MCHC RDW Plt Count MPV Immature Gran % (Auto) Neut % (Auto) Lymph % (Auto) [place] % (Auto) Eos % (Auto) Baso % (Auto) Lymph # (Auto) [place] # (Auto) Eos # (Auto) Baso # (Auto) Abs Immat Gran (auto) Absolute Neuts (auto) Absolute Nucleated RBC Nucleated RBC % (auto) Smear Tech's Comments Anion Gap 11 L Estim Creat Clear Calc 66.7 Estimated GFR > 60 Random Glucose 104 Lactic Acid 0.9 Calcium 9.4 Magnesium 2.0 Total Bilirubin 1.2 H Direct Bilirubin 0.4 AST 16 ALT 16 Alkaline Phosphatase 51 Total Creatine Kinase 30 L Total Protein 7.7 Albumin 3.9 Urine Color Urine Appearance Urine pH Ur Specific [place] Urine Protein Urine Glucose (UA) Urine Ketones Urine Blood Urine Nitrite Ur Leukocyte Esterase Urine RBC Urine WBC Ur Squamous Epith Cells Urine Bacteria Hyaline Casts COVID-19 ([facility]ANKA) COVID-19 Clin Com Imaging Radiologist's Impressions: Impressions Cervical Spine CT 11/02/22 20:18 IMPRESSION: 1. No acute intracranial pathology. 2. No CT evidence of acute cervical spine fracture or traumatic subluxation Head CT 11/02/22 20:18 IMPRESSION: 1. No acute intracranial pathology. 2. No CT evidence of acute cervical spine fracture or traumatic subluxation Abdomen/Pelvis CT 11/02/22 20:22 IMPRESSION: 1. Focal airspace disease right middle lobe which may represent focal pneumonia. 2. Stable chronic findings as above. Chest CT 11/02/22 20:23 IMPRESSION: 1. Focal airspace disease right middle lobe which may represent focal pneumonia. 2. Stable chronic findings as above. Assessment and Plan (1) Acute metabolic encephalopathy: Status: Acute (2) Community acquired pneumonia: Status: Acute Plan [age] with past medical history of dementia, hypertension, COPD, chronic hypoxic respiratory failure on 3 L of oxygen comes into the hospital with cough, increased sputum production found to have pneumonia # acute metabolic encephalopathy - with confused according to his - likely secondary to acute infection complicated by underlying dementia - reorient, monitor mentation # acute community-acquired pneumonia - will treat with IV antibiotics, DuoNebs, - follow cultures - monitor respiratory status # COPD - does have increased cough and sputum production as well as dyspnea in the setting pneumonia -will start patient on DuoNebs p.r.n., no wheezing, will hold off on Solu- Medrol, IV antibiotics prescribed # hyperlipidemia - continue statin DVT prophylaxis: Lovenox Given patient's need for IV antibiotics patient require minimum 2 nights inpatient hospital stay for further management and monitoring Time Spent With Patient Time: Total time managing care of this patient today ____ minutes. Quality Stroke Does the patient have a stroke diagnosis?: No VTE Prior VTE?: No VTE Risk Level:: Medical - moderate - high VTE Device Contraindication: Treatment Not Indicated VTE Drug Contraindication: N/A - Med Ordered
[2022-11-02] MEDS: Vortioxetine Hydrobromide 10 MG TABLET PO (22:48)
[2022-11-02] MEDS: Enoxaparin Sodium 40 MG/0.4 ML SYRINGE SUBCUT (22:48)
[2022-11-02] MEDS: QUEtiapine Fumarate 25 MG TABLET 12.5 MG PO (22:48)
[2022-11-03] VITALS (13 sets, daily range): BP systolic 90–111; BP diastolic 50–62; PULSE 70–88; RESP 16–18; TEMP 36.4–37.1; O2SAT 93–98
[2022-11-03] MEDS: Lactated Ringers 1,000 ML 999 ML IV ×2 (01:21→03:03)
--- NOTE | 2022-11-03 02:09 | PC.NURSE ---
received roeport from ED, nurse stated there were two bags IVF LR still due, and he would hang one before transfer. That bag is currently running. Still one liter bolus outstanding not administered yet. SBP after transfer 92.
[2022-11-03 06:31] LABS: Basophils Percent Auto 0.3 % (0-2); Eosinophils Absolute Auto 0.2 X10*3/uL (0.0-0.4); Eosinophils Percent Auto 1.3 % (0-4); Hematocrit 39.4 % (42.0-52.0); Hemoglobin 12.8 g/dl (14.0-18.0); Imm Gran Abs Auto 0.08 X10*3/uL (0.00-0.03); Imm Gran Pct Auto 0.7 % (0.0-0.4); Lymphocytes Absolute Auto 1.3 X10*3/uL (1.2-4.9); Lymphocytes Percent Auto 10.6 % (20-40); MANUAL DIFF FLAG SCAN; Mean Corpuscular HGB Conc 32.5 g/dl (31.0-36.0); Mean Corpuscular Hemoglobin 33.2 pg (27.0-33.0); Mean Corpuscular Volume 102.3 fL (80.0-98.0); Mean Platelet Volume 10.6 fL (9.4-12.4); Monocytes Absolute Auto 1.8 X10*3/uL (0.1-1.2); Monocytes Percent Auto 15.1 % (2-11); Neutrophils Absolute Auto 8.5 x10*3/uL (2.0-8.3); Platelet Count 123 X10*3/uL (160-400); Red Blood Count 3.85 X10*6/uL (4.60-5.80); Red Cell Distribution Width 13.8 % (11.0-16.0); SCAN SMEAR FLAG 1; White Blood Count 11.8 X10*3/uL (4.8-10.8)
[2022-11-03 06:51] LABS: Anion Gap 11 (12-20); Blood Urea Nitrogen 11 mg/dL (9-16); Calcium 8.4 mg/dL (8.4-10.2); Carbon Dioxide 24 mmol/L (22-29); Chloride 109 mmol/L (96-108); Creatinine Clr Calc Pharmacy 80.8; Estimated Glomerular Filt Rate > 60; Glucose Random 105 mg/dL (60-115); Potassium 3.9 mmol/L (3.3-5.1); Sodium 140 mmol/L (135-145)
[2022-11-03] MEDS: Atorvastatin Calcium 10 MG TABLET PO (08:45)
[2022-11-03] MEDS: Tamsulosin HCL 0.4 MG CAPSULE PO (08:45)
[2022-11-03] MEDS: Vortioxetine Hydrobromide 10 MG TABLET PO ×2 (08:45→20:27)
[2022-11-03] MEDS: Aspirin Enteric Coated 81 MG TABLET.DR PO (08:45)
[2022-11-03] MEDS: Multivitamin TABLET 1 TAB PO (08:45)
[2022-11-03] MEDS: Divalproex Sodium 500 MG TABLET.DR PO ×2 (08:45→21:25)
[2022-11-03] MEDS: QUEtiapine Fumarate 25 MG TABLET 12.5 MG PO ×3 (08:45→20:26)
[2022-11-03] MEDS: Docusate Sodium 100 MG CAPSULE PO (08:45)
[2022-11-03] MEDS: 0.9 % Sodium Chloride Flush 3 ML SYRINGE IVFLUSH ×3 (08:46→19:56)
[2022-11-03 10:00] LABS: SLIDE REVIEW VERIFIED
[2022-11-03] MEDS: guaiFENesin LA 600 MG TAB.ER.12H PO ×2 (10:00→20:26)
[2022-11-03] MEDS: Mesalamine 250 MG CAPSULE.ER 1500 MG PO (10:00)
--- NOTE | 2022-11-03 11:12 | P.PNIM_ITS ---
Subjective Subjective Date of Service: 11/03/22 Interval History: seen and examined this morning follow up for pneumonia feeling lousy reports body aches, chills and cough Review of Systems Review of Systems: Yes all other systems are reviewed and are negative Constitutional Constitutional: Reports chills and Denies fever(s) Respiratory Respiratory: Reports cough Gastrointestinal Gastrointestinal: Denies abdominal pain Physical Exam Vital Signs: Vital Signs: Last Vital Signs Temp 98 F 11/03/22 07:13 Pulse 72 11/03/22 07:13 Resp 18 11/03/22 07:13 BP 105/54 L 11/03/22 07:13 Pulse Ox 96 11/03/22 07:13 O2 Del Method Nasal Cannula 11/03/22 07:13 O2 Flow Rate 3 11/03/22 07:13 Oxygen Flow Rate 3 11/02/22 14:22 BMI result Body Mass Index 26.0 Const: General: comfortable, no acute distress, alert and awake Nutritional Appearance: average body habitus Resp: Other: rhonchi Effort & Inspection: normal respiratory effort, no respiratory distress and no use of accessory muscles Cardio: Rate: regular rate Heart sounds: S1 normal heart sound present and S2 normal heart sound present GI: Inspection: No distended Palpation (GI): Soft to palpation and nontender Neuro: Other: grossly nonfocal General: moves all extremities Extrem: General: Yes no pedal edema Objective Data Active Medications Acetaminophen (Acetaminophen 325 Mg Tablet) 650 mg PO Q6H PRN PRN Reason: Pain, Mild (Pain Scale 1-3) Albuterol/Ipratropium (Albuterol/Iprat 2.5/0.5mg 3 Ml Ampul.Neb) 3 ml INHALE RQ4H PRN PRN Reason: Shortness of Breath/Wheezing Albuterol/Ipratropium (Albuterol/Iprat 2.5/0.5mg 3 Ml Ampul.Neb) 3 ml INHALE RQ4H WHILE AWAKE [facility] Last Admin: 11/03/22 08:18 Dose: Not Given Documented By: TIGIST Non-Admin Reason: Patient Asleep Aspirin (Aspirin Enteric Coated 81 Mg Tablet.) 81 mg PO DAILY [facility] Last Admin: 11/03/22 08:45 Dose: 81 mg Documented By: RADHA Atorvastatin Calcium (Atorvastatin Calcium 10 Mg Tablet) 10 mg PO DAILY [facility] Last Admin: 11/03/22 08:45 Dose: 10 mg Documented By: RADHA Divalproex Sodium (Divalproex Sodium 500 Mg Tablet.Dr) 500 mg PO BID [facility] Last Admin: 11/03/22 08:45 Dose: 500 mg Documented By: RADHA Docusate Sodium (Docusate Sodium 100 Mg Capsule) 100 mg PO DAILY PRN PRN Reason: Constipation Docusate Sodium (Docusate Sodium 100 Mg Capsule) 100 mg PO DAILY [facility] Last Admin: 11/03/22 08:45 Dose: 100 mg Documented By: RADHA Enoxaparin Sodium (Enoxaparin Sodium 40 Mg/0.4 Ml Syringe) 40 mg SUBCUT Q24H [facility] Last Admin: 11/02/22 22:48 Dose: 40 mg Documented By: RICARDA Fluticasone Propionate (Fluticasone Propionate 100 Mcg Blst.W.Dev) 2 puff INH [place] RBID [facility] Last Admin: 11/03/22 08:22 Dose: Not Given Documented By: TIGIST Non-Admin Reason: pharmacy called Guaifenesin (Guaifenesin La 600 Mg Tab.Er.12h) 600 mg PO BID [facility] Ceftriaxone Sodium 1 gm/ (Sodium Chloride) 50 mls @ 100 mls/hr IV Q24H [facility] Azithromycin 500 mg/ Sodium (Chloride) 250 mls @ 125 mls/hr IV Q24H [facility] Mesalamine (Mesalamine 250 Mg Capsule.Er) 1,500 mg PO DAILY [facility] Multivitamins/Vitamin C (Multivitamin Tablet) 1 tab PO DAILY [facility] Last Admin: 11/03/22 08:45 Dose: 1 tab Documented By: RADHA Non-Formulary Medication (Tiotropium-Olodaterol [Stiolto Respimat]) 2 puff PO DAILY [facility] Ondansetron HCl (Ondansetron Hcl 4 Mg/2 Ml Vial) 4 mg IVPUSH Q8H PRN PRN Reason: Nausea and Vomiting Propafenone HCl (Propafenone Hcl 150 Mg Tablet) 225 mg PO BID [facility] Last Admin: 11/02/22 22:48 Dose: 225 mg Documented By: RICARDA Quetiapine Fumarate (Quetiapine Fumarate 25 Mg Tablet) 12.5 mg PO TID [facility] Last Admin: 11/03/22 08:45 Dose: 12.5 mg Documented By: RADHA Sodium Chloride (0.9 % Sodium Chloride Flush 3 Ml Syringe) 3 ml IVFLUSH QSHIFT [facility] Last Admin: 11/03/22 08:46 Dose: 3 ml Documented By: RADHA Tamsulosin HCl (Tamsulosin Hcl 0.4 Mg Capsule) 0.4 mg PO DAILY [facility] Last Admin: 11/03/22 08:45 Dose: 0.4 mg Documented By: RADHA Vortioxetine (Vortioxetine Hydrobromide 10 Mg Tablet) 10 mg PO BID [facility] Last Admin: 11/03/22 08:45 Dose: 10 mg Documented By: RADHA Labs 11/03/22 05:58 11/03/22 05:58 Labs: Laboratory Results - last 24 hr 11/02/22 11/02/22 11/02/22 16:15 17:07 17:46 MCV 99.8 H MCH 33.0 MCHC 33.1 RDW 13.7 Plt Count 138 L MPV 9.8 Immature Gran % (Auto) 0.4 Neut % (Auto) 74.3 H Lymph % (Auto) 11.6 L [place] % (Auto) 12.5 H Eos % (Auto) 0.9 Baso % (Auto) 0.3 Lymph # (Auto) 1.5 [place] # (Auto) 1.7 H Eos # (Auto) 0.1 Baso # (Auto) 0.0 Abs Immat Gran (auto) 0.05 H Absolute Neuts (auto) 9.8 H Absolute Nucleated RBC 0.000 Nucleated RBC % (auto) 0.0 Smear Tech's Comments VERIFIED Anion Gap Estim Creat Clear Calc Estimated GFR Random Glucose Lactic Acid Calcium Magnesium Total Bilirubin Direct Bilirubin AST ALT Alkaline Phosphatase Total Creatine Kinase Total Protein Albumin Urine Color Dark Yellow Urine Appearance Clear Urine pH 6.0 Ur Specific [place]win 1.020 Urine Protein Negative Urine Glucose (UA) Negative Urine Ketones 15 Urine Blood Negative Urine Nitrite Negative Ur Leukocyte Esterase Trace H Urine RBC 0-2 Urine WBC 0-5 Ur Squamous Epith Cells 0-2 Urine Bacteria None Seen Hyaline Casts 0-2 COVID-19 (BIANKA) Negative COVID-19 Clin Com See Note 11/02/22 11/02/22 11/03/22 17:46 17:46 05:58 MCV 102.3 H MCH 33.2 H MCHC 32.5 RDW 13.8 Plt Count 123 L MPV 10.6 Immature Gran % (Auto) 0.7 H Neut % (Auto) 72.0 Lymph % (Auto) 10.6 L [place] % (Auto) 15.1 H Eos % (Auto) 1.3 Baso % (Auto) 0.3 Lymph # (Auto) 1.3 [place] # (Auto) 1.8 H Eos # (Auto) 0.2 Baso # (Auto) 0.0 Abs Immat Gran (auto) 0.08 H Absolute Neuts (auto) 8.5 H Absolute Nucleated RBC 0.000 Nucleated RBC % (auto) 0.0 Smear Tech's Comments VERIFIED Anion Gap 11 L Estim Creat Clear Calc 66.7 Estimated GFR > 60 Random Glucose 104 Lactic Acid 0.9 Calcium 9.4 Magnesium 2.0 Total Bilirubin 1.2 H Direct Bilirubin 0.4 AST 16 ALT 16 Alkaline Phosphatase 51 Total Creatine Kinase 30 L Total Protein 7.7 Albumin 3.9 Urine Color Urine Appearance Urine pH Ur Specific [place]win Urine Protein Urine Glucose (UA) Urine Ketones Urine Blood Urine Nitrite Ur Leukocyte Esterase Urine RBC Urine WBC Ur Squamous Epith Cells Urine Bacteria Hyaline Casts COVID-19 (BIANKA) COVID-19 Clin Com 11/03/22 05:58 MCV MCH MCHC RDW Plt Count MPV Immature Gran % (Auto) Neut % (Auto) Lymph % (Auto) [place] % (Auto) Eos % (Auto) Baso % (Auto) Lymph # (Auto) [place] # (Auto) Eos # (Auto) Baso # (Auto) Abs Immat Gran (auto) Absolute Neuts (auto) Absolute Nucleated RBC Nucleated RBC % (auto) Smear Tech's Comments Anion Gap 11 L Estim Creat Clear Calc 80.8 Estimated GFR > 60 Random Glucose 105 Lactic Acid Calcium 8.4 D Magnesium Total Bilirubin Direct Bilirubin AST ALT Alkaline Phosphatase Total Creatine Kinase Total Protein Albumin Urine Color Urine Appearance Urine pH Ur Specific [place] Urine Protein Urine Glucose (UA) Urine Ketones Urine Blood Urine Nitrite Ur Leukocyte Esterase Urine RBC Urine WBC Ur Squamous Epith Cells Urine Bacteria Hyaline Casts COVID-19 (BIANKA) COVID-19 Clin Com Assessment and Plan (1) Pneumonia: Status: Acute Plan This is an 82 year old male with history of dementia, hypertension, COPD, chronic hypoxic respiratory failure on 3 L of oxygen comes into the hospital with cough, increased sputum production found to have pneumonia acute metabolic encephalopathy likely secondary to acute infection complicated by underlying dementia. improving, did not appear confused today gentle reorientation as needed; maintain sleep/wake cycle community-acquired pneumonia white count trending down continue IV ceftriaxone, azithromycin, started 11/02 will check RPP blood cultures pending COPD/chronic respiratory failure increased cough and sputum production as well as dyspnea in the setting pneumonia continue DuoNebs p.r.n., no wheezing, will hold off on Solu-Medrol thrombocytopenia likely r/t acute infection trend CBC macrocytic anemia check b12, folate follow CBC no evidence of acute bleeding paroxysmal atrial fibrillation continue rhthmol does not appear to be on AC continue aspirin hyperlipidemia continue statin Mood continue seroquel, trintellix Seizure continue depakote Crohns disease continue mesalamine DVT prophylaxis: Lovenox Patient requires ongoing inpatient stay for IV antibiotics, close monitoring of respiratory status Time Spent With Patient Time: Total time managing care of this patient today ____ minutes. Quality Stroke Does the patient have a stroke diagnosis?: No VTE Prior VTE?: No VTE Risk Level:: Medical - moderate - high VTE Device Contraindication: Treatment Not Indicated VTE Drug Contraindication: N/A - Med Ordered
[2022-11-03] MEDS: Albuterol/Iprat 2.5/0.5MG 3 ML AMPUL.NEB INHALE ×3 (11:54→19:41)
[2022-11-03 11:58] LABS: Procalcitonin 0.06 ng/mL
[2022-11-03 15:04] LABS: Adenovirus PCR Not Detected (Not Detect.); Bordetella parapertussis PCR Not Detected (Not Detect.); Bordetella pertussis PCR Not Detected (Not Detect.); Chlamydia pneumoniae PCR Not Detected (Not Detect.); Coronavirus 229E PCR Not Detected (Not Detect.); Coronavirus HKU1 PCR Not Detected (Not Detect.); Coronavirus NL63 PCR Not Detected (Not Detect.); Coronavirus OC43 PCR Not Detected (Not Detect.); Human metapneumovirus PCR Not Detected (Not Detect.); Influenza A PCR Not Detected (Not Detect.); Influenza B PCR Not Detected (Not Detect.); Mycoplasma pneumoniae PCR Not Detected (Not Detect.); Parainfluenza 1 PCR Not Detected (Not Detect.); Parainfluenza 2 PCR Not Detected (Not Detect.); Parainfluenza 3 PCR Not Detected (Not Detect.); Parainfluenza 4 PCR Not Detected (Not Detect.); RSV PCR Not Detected (Not Detect.); Rhino/Enterovirus PCR Not Detected (Not Detect.); SARS-CoV-2 PCR Not Detected (Not Detect.)
--- NOTE | 2022-11-03 15:28 | MHC.CM.PN ---
CM CALLED PTS , JEAN-PAUL VERGARA [phone] SHE REPORTS THE PT RESIDES AT [facility] AND SHE LIVES IN AN APARTMENT NEARBY SHE SAYS THE PT HAS A ROOM NEXT TO THE RN STATION HE REQUIRES MORE CARE THAN MOST [facility] RESIDENTS SHE SAYS THE PT USES A WHEEL CHAIR BECAUSE HE HAS A SEIZURE DISORDER AND WAS FALLING FREQUENTLY JEAN-PAUL REPORTS THE PT LIKELY CANNOT BE CARED FOR IN AN [facility] ANY LONGER SHE IS AWARE STR IS BEING RECOMMENDED, BUT WORRIES HE NEEDS LTC [facility] BUT UNDERSTANDS THAT WILL NOT HAPPEN AT OR SHE REPORTS [facility] BE THE PREFERRED SNF FOR STR SHE SAYS PT IS A CONNECTED , SO MAY BE ABLE TO GO TO A [facility] CONTRACTED SNF JEAN-PAUL WILL OBTAIN A COPY OF PTS HCP AND BRING IT IN DURING THE WEEK, IT IS AT A HOSE MENDER OFFICE AND UNAVAILABLE ON THE W/E PTS PCP IS BRENT BLAIR AT THE [facility] IMM DELIVERED DCP: STR TO LTC? BLS TRANSPORT
[2022-11-03] MEDS: Fluticasone Propionate 100 MCG BLST.W.DEV 2 PUFF INHALE (19:41)
[2022-11-03] MEDS: Acetaminophen 325 MG TABLET 650 MG PO (19:55)
[2022-11-03] MEDS: cefTRIAXone sodium 1 GM in 0.9 % Sodium Chloride 50 ML IV (20:26)
[2022-11-03] MEDS: Enoxaparin Sodium 40 MG/0.4 ML SYRINGE SUBCUT (21:25)
[2022-11-03] MEDS: Azithromycin 500 MG in 0.9 % Sodium Chloride 250 ML 125 MG IV (21:53)
[2022-11-04] VITALS (7 sets, daily range): BP systolic 101–116; BP diastolic 53–67; PULSE 61–77; RESP 14–18; TEMP 35.5–36; O2SAT 93–99
[2022-11-04 06:47] LABS: Hematocrit 38.8 % (42.0-52.0); Hemoglobin 12.6 g/dl (14.0-18.0); Mean Corpuscular HGB Conc 32.5 g/dl (31.0-36.0); Mean Corpuscular Hemoglobin 33.2 pg (27.0-33.0); Mean Corpuscular Volume 102.4 fL (80.0-98.0); Mean Platelet Volume 10.8 fL (9.4-12.4); Platelet Count 118 X10*3/uL (160-400); Red Blood Count 3.79 X10*6/uL (4.60-5.80); Red Cell Distribution Width 13.6 % (11.0-16.0); White Blood Count 9.8 X10*3/uL (4.8-10.8)
[2022-11-04 06:58] LABS: Folate 14.1 ng/mL (> or = 4.0); Vitamin B12 512 pg/mL (200-900)
[2022-11-04] MEDS: 0.9 % Sodium Chloride Flush 3 ML SYRINGE IVFLUSH ×3 (07:29→19:10)
[2022-11-04] MEDS: Vortioxetine Hydrobromide 10 MG TABLET PO ×2 (07:30→20:08)
[2022-11-04] MEDS: Atorvastatin Calcium 10 MG TABLET PO (07:30)
[2022-11-04] MEDS: QUEtiapine Fumarate 25 MG TABLET 12.5 MG PO ×3 (07:31→20:08)
[2022-11-04] MEDS: Docusate Sodium 100 MG CAPSULE PO (07:32)
[2022-11-04] MEDS: guaiFENesin LA 600 MG TAB.ER.12H PO ×2 (07:32→20:09)
[2022-11-04] MEDS: Mesalamine 250 MG CAPSULE.ER 1500 MG PO (07:32)
[2022-11-04] MEDS: Tamsulosin HCL 0.4 MG CAPSULE PO (07:32)
[2022-11-04] MEDS: Divalproex Sodium 500 MG TABLET.DR PO ×2 (07:32→20:08)
[2022-11-04] MEDS: Aspirin Enteric Coated 81 MG TABLET.DR PO (07:32)
[2022-11-04] MEDS: Multivitamin TABLET 1 TAB PO (07:33)
[2022-11-04] MEDS: Acetaminophen 325 MG TABLET 650 MG PO (07:37)
[2022-11-04] MEDS: Fluticasone Propionate 100 MCG BLST.W.DEV 2 PUFF INHALE ×2 (07:53→18:45)
[2022-11-04] MEDS: Albuterol/Iprat 2.5/0.5MG 3 ML AMPUL.NEB INHALE ×3 (07:57→18:45)
[2022-11-04] MEDS: methylPREDNISolone Sod Succ 40 MG/ML VIAL IVPUSH ×2 (10:10→20:08)
--- NOTE | 2022-11-04 11:05 | HO.PM.IMPN ---
Subjective Subjective Date of Service: 11/04/22 Interval History: seen and examined this morning follow up for pneumonia not feeling well, has right side pain when he coughs; denies fever or sob wheezing today Review of Systems Review of Systems: Yes all other systems are reviewed and are negative Constitutional Constitutional: Denies chills and Denies fever(s) Cardiovascular Cardiovascular: Denies chest pain and Denies dyspnea Respiratory Respiratory: Reports cough, Reports pain with cough and Denies dyspnea Gastrointestinal Gastrointestinal: Denies abdominal pain Neurologic Neurologic: Denies Abnormal speech present Physical Exam Vital Signs: Vital Signs: Last Vital Signs Temp 96 F L 11/04/22 06:54 Pulse 66 11/04/22 07:57 Resp 18 11/04/22 07:57 BP 116/67 11/04/22 06:54 Pulse Ox 95 11/04/22 06:54 O2 Del Method Nasal Cannula 11/04/22 06:54 O2 Flow Rate 3 11/04/22 06:54 Oxygen Flow Rate 3 11/02/22 14:22 BMI result Body Mass Index 26.0 Const: General: comfortable, no acute distress, alert and awake Nutritional Appearance: average body habitus Resp: Other: bilateral expiartory wheezing Effort & Inspection: normal respiratory effort, no respiratory distress and no use of accessory muscles Cardio: Rate: regular rate Heart sounds: S1 normal heart sound present and S2 normal heart sound present GI: Inspection: No distended Palpation (GI): Soft to palpation and nontender Neuro: Other: grossly nonfocal General: moves all extremities Speech: No Abnormal speech present Extrem: General: Yes no pedal edema Objective Data Active Medications Acetaminophen (Acetaminophen 325 Mg Tablet) 650 mg PO Q6H PRN PRN Reason: Pain, Mild (Pain Scale 1-3) Last Admin: 11/04/22 07:37 Dose: 650 mg Documented By: MENDOZA Albuterol/Ipratropium (Albuterol/Iprat 2.5/0.5mg 3 Ml Ampul.Neb) 3 ml INHALE RQ4H PRN PRN Reason: Shortness of Breath/Wheezing Albuterol/Ipratropium (Albuterol/Iprat 2.5/0.5mg 3 Ml Ampul.Neb) 3 ml INHALE RQ4H WHILE AWAKE [facility] Last Admin: 11/04/22 07:57 Dose: 3 ml Documented By: GUEVARA Aspirin (Aspirin Enteric Coated 81 Mg Tablet.) 81 mg PO DAILY [facility] Last Admin: 11/04/22 07:32 Dose: 81 mg Documented By: MENDOZA Atorvastatin Calcium (Atorvastatin Calcium 10 Mg Tablet) 10 mg PO DAILY [facility] Last Admin: 11/04/22 07:30 Dose: 10 mg Documented By: MENDOZA Divalproex Sodium (Divalproex Sodium 500 Mg Tablet.) 500 mg PO BID [facility] Last Admin: 11/04/22 07:32 Dose: 500 mg Documented By: MENDOZA Docusate Sodium (Docusate Sodium 100 Mg Capsule) 100 mg PO DAILY PRN PRN Reason: Constipation Docusate Sodium (Docusate Sodium 100 Mg Capsule) 100 mg PO DAILY [facility] Last Admin: 11/04/22 07:32 Dose: 100 mg Documented By: MENDOZA Enoxaparin Sodium (Enoxaparin Sodium 40 Mg/0.4 Ml Syringe) 40 mg SUBCUT Q24H [facility] Last Admin: 11/03/22 21:25 Dose: 40 mg Documented By: SAMSON Fluticasone Propionate (Fluticasone Propionate 100 Mcg Blst.W.Dev) 2 puff INHALE RBID [facility] Last Admin: 11/04/22 07:53 Dose: 2 puff Documented By: GUEVARA Guaifenesin (Guaifenesin La 600 Mg Tab.Er.12h) 600 mg PO BID [facility] Last Admin: 11/04/22 07:32 Dose: 600 mg Documented By: MENDOZA Ceftriaxone Sodium 1 gm/ (Sodium Chloride) 50 mls @ 100 mls/hr IV Q24H [facility] Last Infusion: 11/03/22 20:56 Dose: 0 mls/hr Documented By: SAMSON Azithromycin 500 mg/ Sodium (Chloride) 250 mls @ 125 mls/hr IV Q24H [facility] Last Infusion: 11/03/22 23:56 Dose: 0 mls/hr Documented By: SAMSON Mesalamine (Mesalamine 250 Mg Capsule.Er) 1,500 mg PO DAILY [facility] Last Admin: 11/04/22 07:32 Dose: 1,500 mg Documented By: MENDOZA Methylprednisolone Sodium Succinate (Methylprednisolone Sod Succ 40 Mg/Ml Vial) 40 mg IVPUSH Q12H [facility] Last Admin: 11/04/22 10:10 Dose: 40 mg Documented By: MENDOZA Multivitamins/Vitamin C (Multivitamin Tablet) 1 tab PO DAILY [facility] Last Admin: 11/04/22 07:33 Dose: 1 tab Documented By: MENDOZA Non-Formulary Medication (Tiotropium-Olodaterol [Stiolto Respimat]) 2 puff PO DAILY [facility] Ondansetron HCl (Ondansetron Hcl 4 Mg/2 Ml Vial) 4 mg IVPUSH Q8H PRN PRN Reason: Nausea and Vomiting Propafenone HCl (Propafenone Hcl 150 Mg Tablet) 225 mg PO BID [facility] Last Admin: 11/04/22 07:29 Dose: 225 mg Documented By: MENDOZA Quetiapine Fumarate (Quetiapine Fumarate 25 Mg Tablet) 12.5 mg PO TID [facility] Last Admin: 11/04/22 07:31 Dose: 12.5 mg Documented By: MENDOZA Sodium Chloride (0.9 % Sodium Chloride Flush 3 Ml Syringe) 3 ml IVFLUSH QSHIFT [facility] Last Admin: 11/04/22 07:29 Dose: 3 ml Documented By: MENDOZA Tamsulosin HCl (Tamsulosin Hcl 0.4 Mg Capsule) 0.4 mg PO DAILY [facility] Last Admin: 11/04/22 07:32 Dose: 0.4 mg Documented By: MENDOZA Vortioxetine (Vortioxetine Hydrobromide 10 Mg Tablet) 10 mg PO BID [facility] Last Admin: 11/04/22 07:30 Dose: 10 mg Documented By: MENDOZA Labs 11/04/22 05:20 11/03/22 05:58 Labs: Laboratory Results - last 24 hr 11/03/22 11/03/22 11/04/22 05:58 11:32 05:20 MCV MCH MCHC RDW Plt Count MPV Absolute Nucleated RBC Nucleated RBC % (auto) Vitamin B12 512 Folate 14.1 Procalcitonin 0.06 Respiratory Panel Kemp See Note Adenovirus (Rapid PCR) Not Detected B.pert (TEM-PCR) Not Detected B.parapertussis DNA PCR Not Detected C. pneumoniae DNA (PCR) Not Detected Coronavirus OC43 (PCR) Not Detected Coronavirus HKU1 (PCR) Not Detected Coronavirus 229E (PCR) Not Detected Coronavirus NL63 (PCR) Not Detected Human Metapneumovir PCR Not Detected Influenza A (RT-PCR) Not Detected Influenza B (RT-PCR) Not Detected M. pneumoniae (PCR) Not Detected Parainfluenza 1 (PCR) Not Detected Parainfluenza 2 (PCR) Not Detected Parainfluenza 3 (PCR) Not Detected Parainfluenza 4 (PCR) Not Detected RSV (PCR) Not Detected Entero/Rhino (PCR) Not Detected SARS-CoV-2 RNA (RT-PCR) Not Detected 11/04/22 05:20 MCV 102.4 H MCH 33.2 H MCHC 32.5 RDW 13.6 Plt Count 118 L MPV 10.8 Absolute Nucleated RBC 0.000 Nucleated RBC % (auto) 0.0 Vitamin B12 Folate Procalcitonin Respiratory Panel Kemp Adenovirus (Rapid PCR) B.pert (TEM-PCR) B.parapertussis DNA PCR C. pneumoniae DNA (PCR) Coronavirus OC43 (PCR) Coronavirus HKU1 (PCR) Coronavirus 229E (PCR) Coronavirus NL63 (PCR) Human Metapneumovir PCR Influenza A (RT-PCR) Influenza B (RT-PCR) M. pneumoniae (PCR) Parainfluenza 1 (PCR) Parainfluenza 2 (PCR) Parainfluenza 3 (PCR) Parainfluenza 4 (PCR) RSV (PCR) Entero/Rhino (PCR) SARS-CoV-2 RNA (RT-PCR) Microbiology Microbiology Results: Microbiology 11/02/22 17:46 Blood Culture - Preliminary Blood - Venous No growth after 24 hours. 11/02/22 17:42 Blood Culture - Preliminary Blood - Venous No growth after 24 hours. Assessment and Plan (1) Community acquired pneumonia: Status: Acute (2) COPD (chronic obstructive pulmonary disease): Status: Acute Plan This is an 82 year old male with history of dementia, hypertension, COPD, chronic hypoxic respiratory failure on 3 L of oxygen comes into the hospital with cough, increased sputum production found to have pneumonia acute metabolic encephalopathy likely secondary to acute infection complicated by underlying dementia. improving, did not appear confused today gentle reorientation as needed; maintain sleep/wake cycle community-acquired pneumonia white count trending down continue IV ceftriaxone, azithromycin, started 11/02 RPP negative blood cultures negative to date acute COPDexacerbation/chronic respiratory failure continue DuoNebs p.r.n wheezing today, will start IV solu-medrol continue 3L supplemental oxygen thrombocytopenia likely r/t acute infection trend CBC macrocytic anemia b12, folate wnl no evidence of acute bleeding H/H stable paroxysmal atrial fibrillation continue rhthmol does not appear to be on AC continue aspirin hyperlipidemia continue statin Mood continue seroquel, trintellix Seizure continue depakote Crohns disease continue mesalamine DVT prophylaxis: [place] attending: Dr. Farah Patient requires ongoing inpatient stay for IV antibiotics, close monitoring of respiratory status Time Spent With Patient Time: Total time managing care of this patient today ____ minutes. Quality Stroke Does the patient have a stroke diagnosis?: No VTE Prior VTE?: No VTE Risk Level:: Medical - moderate - high VTE Device Contraindication: Treatment Not Indicated VTE Drug Contraindication: N/A - Med Ordered
[2022-11-04] MEDS: cefTRIAXone sodium 1 GM in 0.9 % Sodium Chloride 50 ML IV (20:18)
[2022-11-04] MEDS: Enoxaparin Sodium 40 MG/0.4 ML SYRINGE SUBCUT (21:53)
[2022-11-04] MEDS: Azithromycin 500 MG in 0.9 % Sodium Chloride 250 ML 125 MG IV (21:54)
[2022-11-05] VITALS (8 sets, daily range): BP systolic 100–112; BP diastolic 53–60; PULSE 65–82; RESP 16–18; TEMP 36.1–36.4; O2SAT 94–97
[2022-11-05] MEDS: Albuterol/Iprat 2.5/0.5MG 3 ML AMPUL.NEB INHALE ×4 (07:29→19:38)
[2022-11-05] MEDS: Fluticasone Propionate 100 MCG BLST.W.DEV 2 PUFF INHALE ×2 (07:29→19:38)
[2022-11-05] MEDS: Docusate Sodium 100 MG CAPSULE PO (09:23)
[2022-11-05] MEDS: Mesalamine 250 MG CAPSULE.ER 1500 MG PO (09:23)
[2022-11-05] MEDS: 0.9 % Sodium Chloride Flush 3 ML SYRINGE IVFLUSH ×3 (09:23→19:24)
[2022-11-05] MEDS: methylPREDNISolone Sod Succ 40 MG/ML VIAL IVPUSH ×2 (09:23→21:35)
[2022-11-05] MEDS: Divalproex Sodium 500 MG TABLET.DR PO ×2 (09:24→21:34)
[2022-11-05] MEDS: guaiFENesin LA 600 MG TAB.ER.12H PO ×2 (09:24→21:31)
[2022-11-05] MEDS: Vortioxetine Hydrobromide 10 MG TABLET PO ×2 (09:24→21:34)
[2022-11-05] MEDS: Aspirin Enteric Coated 81 MG TABLET.DR PO (09:24)
[2022-11-05] MEDS: QUEtiapine Fumarate 25 MG TABLET 12.5 MG PO ×3 (09:24→22:12)
[2022-11-05] MEDS: Tamsulosin HCL 0.4 MG CAPSULE PO (09:24)
[2022-11-05] MEDS: Atorvastatin Calcium 10 MG TABLET PO (09:24)
[2022-11-05] MEDS: Multivitamin TABLET 1 TAB PO (09:24)
--- NOTE | 2022-11-05 11:39 | P.PNIM_ITS ---
Subjective Subjective Date of Service: 11/05/22 Interval History: seen and examined this morning follow up for pneumonia doing better Review of Systems Review of Systems: Yes all other systems are reviewed and are negative Constitutional Constitutional: Denies chills and Denies fever(s) Cardiovascular Cardiovascular: Denies chest pain and Denies dyspnea Respiratory Respiratory: Reports cough, Reports pain with cough and Denies dyspnea Gastrointestinal Gastrointestinal: Denies abdominal pain Neurologic Neurologic: Denies Abnormal speech present Physical Exam Vital Signs: Vital Signs: Last Vital Signs Temp 97.0 F 11/05/22 07:26 Pulse 76 11/05/22 11:21 Resp 18 11/05/22 11:21 BP 106/59 L 11/05/22 07:26 Pulse Ox 96 11/05/22 07:26 O2 Del Method Nasal Cannula 11/05/22 07:26 O2 Flow Rate 4 11/05/22 07:26 Oxygen Flow Rate 3 11/02/22 14:22 BMI result Body Mass Index 26.0 Appearing in no acute distress lung sounds are clear to auscultation heart regular rate rhythm, clear S1, S2 positive bowel sounds, abdomen is soft, nontender neuro patient is alert x3, no focal deficits Neuro: Speech: No Abnormal speech present Objective Data Active Medications Acetaminophen (Acetaminophen 325 Mg Tablet) 650 mg PO Q6H PRN PRN Reason: Pain, Mild (Pain Scale 1-3) Last Admin: 11/04/22 07:37 Dose: 650 mg Documented By: MENDOZA Albuterol/Ipratropium (Albuterol/Iprat 2.5/0.5mg 3 Ml Ampul.Neb) 3 ml INHALE RQ4H PRN PRN Reason: Shortness of Breath/Wheezing Albuterol/Ipratropium (Albuterol/Iprat 2.5/0.5mg 3 Ml Ampul.Neb) 3 ml INHALE RQ4H WHILE AWAKE [facility] Last Admin: 11/05/22 11:21 Dose: 3 ml Documented By: PRADEEP Aspirin (Aspirin Enteric Coated 81 Mg Tablet.) 81 mg PO DAILY [facility] Last Admin: 11/05/22 09:24 Dose: 81 mg Documented By: MING Atorvastatin Calcium (Atorvastatin Calcium 10 Mg Tablet) 10 mg PO DAILY [facility] Last Admin: 11/05/22 09:24 Dose: 10 mg Documented By: MING Divalproex Sodium (Divalproex Sodium 500 Mg Tablet.Dr) 500 mg PO BID [facility] Last Admin: 11/05/22 09:24 Dose: 500 mg Documented By: MING Docusate Sodium (Docusate Sodium 100 Mg Capsule) 100 mg PO DAILY PRN PRN Reason: Constipation Docusate Sodium (Docusate Sodium 100 Mg Capsule) 100 mg PO DAILY [facility] Last Admin: 11/05/22 09:23 Dose: 100 mg Documented By: MING Enoxaparin Sodium (Enoxaparin Sodium 40 Mg/0.4 Ml Syringe) 40 mg SUBCUT Q24H [facility] Last Admin: 11/04/22 21:53 Dose: 40 mg Documented By: MATTY Fluticasone Propionate (Fluticasone Propionate 100 Mcg Blst.W.Dev) 2 puff INHALE RBID [facility] Last Admin: 11/05/22 07:29 Dose: 2 puff Documented By: GUEVARA Guaifenesin (Guaifenesin La 600 Mg Tab.Er.12h) 600 mg PO BID [facility] Last Admin: 11/05/22 09:24 Dose: 600 mg Documented By: MING Ceftriaxone Sodium 1 gm/ (Sodium Chloride) 50 mls @ 100 mls/hr IV Q24H [facility] Last Infusion: 11/04/22 20:51 Dose: 0 mls/hr Documented By: MATTY Azithromycin 500 mg/ Sodium (Chloride) 250 mls @ 125 mls/hr IV Q24H [facility] Last Infusion: 11/04/22 23:57 Dose: 0 mls/hr Documented By: MATTY Mesalamine (Mesalamine 250 Mg Capsule.Er) 1,500 mg PO DAILY [facility] Last Admin: 11/05/22 09:23 Dose: 1,500 mg Documented By: MING Methylprednisolone Sodium Succinate (Methylprednisolone Sod Succ 40 Mg/Ml Vial) 40 mg IVPUSH Q12H [facility] Last Admin: 11/05/22 09:23 Dose: 40 mg Documented By: MING Multivitamins/Vitamin C (Multivitamin Tablet) 1 tab PO DAILY [facility] Last Admin: 11/05/22 09:24 Dose: 1 tab Documented By: MING Ondansetron HCl (Ondansetron Hcl 4 Mg/2 Ml Vial) 4 mg IVPUSH Q8H PRN PRN Reason: Nausea and Vomiting Propafenone HCl (Propafenone Hcl 150 Mg Tablet) 225 mg PO BID [facility] Last Admin: 11/05/22 09:24 Dose: 225 mg Documented By: MING Quetiapine Fumarate (Quetiapine Fumarate 25 Mg Tablet) 12.5 mg PO TID [facility] Last Admin: 11/05/22 09:24 Dose: 12.5 mg Documented By: MING Sodium Chloride (0.9 % Sodium Chloride Flush 3 Ml Syringe) 3 ml IVFLUSH QSHIFT [facility] Last Admin: 11/05/22 09:23 Dose: 3 ml Documented By: MING Tamsulosin HCl (Tamsulosin Hcl 0.4 Mg Capsule) 0.4 mg PO DAILY [facility] Last Admin: 11/05/22 09:24 Dose: 0.4 mg Documented By: MING Vortioxetine (Vortioxetine Hydrobromide 10 Mg Tablet) 10 mg PO BID [facility] Last Admin: 11/05/22 09:24 Dose: 10 mg Documented By: MING Labs 11/04/22 05:20 11/03/22 05:58 Microbiology Microbiology Results: Microbiology 11/02/22 17:46 Blood Culture - Preliminary Blood - Venous No growth after 48 hours. 11/02/22 17:42 Blood Culture - Preliminary Blood - Venous No growth after 48 hours. Assessment and Plan (1) Community acquired pneumonia: Status: Acute (2) COPD (chronic obstructive pulmonary disease): Status: Acute Plan This is an 82 year old male with history of dementia, hypertension, COPD, chronic hypoxic respiratory failure on 3 L of oxygen comes into the hospital with cough, increased sputum production found to have pneumonia acute metabolic encephalopathy likely secondary to acute infection complicated by underlying dementia. resolved gentle reorientation as needed; maintain sleep/wake cycle community-acquired pneumonia continue IV ceftriaxone, azithromycin, started 11/02 RPP negative blood cultures negative to date acute COPDexacerbation/chronic respiratory failure continue DuoNebs p.r.n wheezing today, will start IV solu-medrol continue 3L supplemental oxygen thrombocytopenia likely r/t acute infection trend CBC macrocytic anemia b12, folate wnl no evidence of acute bleeding H/H stable paroxysmal atrial fibrillation continue rhthmol does not appear to be on AC continue aspirin hyperlipidemia continue statin Mood continue seroquel, trintellix Seizure continue depakote Crohns disease continue mesalamine DVT prophylaxis: [place] attending: Dr. henriuqez Patient requires ongoing inpatient stay for IV antibiotics, close monitoring of respiratory status Time Spent With Patient Time: Total time managing care of this patient today ____ minutes. Quality Stroke Does the patient have a stroke diagnosis?: No VTE Prior VTE?: No VTE Risk Level:: Medical - moderate - high VTE Device Contraindication: Treatment Not Indicated VTE Drug Contraindication: N/A - Med Ordered
--- NOTE | 2022-11-05 13:22 | MHC.CM.PN ---
M SPOKE WITH /HCP JEAN-PAUL WHO WILL BE BRINGING IN A COPY OF THE HCP TODAY. P.Srinivasan. HAS REC STR WITH A POSSIBLE TR[facility]ITION [facility]. REFERRALS SENT TO THESE CENTERS AND AWAITING RESPONSES.
[2022-11-05] MEDS: cefTRIAXone sodium 1 GM in 0.9 % Sodium Chloride 50 ML IV (22:04)
[2022-11-05] MEDS: Enoxaparin Sodium 40 MG/0.4 ML SYRINGE SUBCUT (22:52)
[2022-11-05] MEDS: Azithromycin 500 MG in 0.9 % Sodium Chloride 250 ML 125 MG IV (22:54)
[2022-11-06 03:57] VITALS: BP 100/60; PULSE 72; RESP 18; TEMP 36.4; O2SAT 95
[2022-11-06 07:26] VITALS: BP 113/63; PULSE 66; RESP 18; TEMP 36.1; O2SAT 96
[2022-11-06] MEDS: Albuterol/Iprat 2.5/0.5MG 3 ML AMPUL.NEB INHALE ×3 (08:49→15:39)
[2022-11-06] MEDS: Fluticasone Propionate 100 MCG BLST.W.DEV 2 PUFF INHALE (08:49)
[2022-11-06 08:52] VITALS: PULSE 97; O2SAT 95
[2022-11-06] MEDS: 0.9 % Sodium Chloride Flush 3 ML SYRINGE IVFLUSH (09:11)
[2022-11-06] MEDS: methylPREDNISolone Sod Succ 40 MG/ML VIAL IVPUSH (09:11)
[2022-11-06] MEDS: Docusate Sodium 100 MG CAPSULE PO (09:12)
[2022-11-06] MEDS: Divalproex Sodium 500 MG TABLET.DR PO (09:12)
[2022-11-06] MEDS: Atorvastatin Calcium 10 MG TABLET PO (09:12)
[2022-11-06] MEDS: guaiFENesin LA 600 MG TAB.ER.12H PO (09:12)
[2022-11-06] MEDS: Vortioxetine Hydrobromide 10 MG TABLET PO (09:12)
[2022-11-06] MEDS: Aspirin Enteric Coated 81 MG TABLET.DR PO (09:13)
[2022-11-06] MEDS: Multivitamin TABLET 1 TAB PO (09:13)
[2022-11-06] MEDS: QUEtiapine Fumarate 25 MG TABLET 12.5 MG PO ×2 (09:13→14:33)
[2022-11-06] MEDS: Tamsulosin HCL 0.4 MG CAPSULE PO (09:13)
[2022-11-06] MEDS: Mesalamine 250 MG CAPSULE.ER 1500 MG PO (11:04)
[2022-11-06 12:11] VITALS: PULSE 96; RESP 17; O2SAT 98
--- NOTE | 2022-11-06 13:56 | PM.DS ---
DS: Providers Provider Date of Service: 11/06/22 Date of admission: 11/02/22 22:04 Primary care physician: Savita Metcalf MD DS: Diagnosis Discharge Diagnosis (1) Community acquired pneumonia: Status: Acute (2) COPD (chronic obstructive pulmonary disease): Status: Acute DS: Summary Hospital Course Hospital Course: history and physical as per admitting provider.82-year-old male with past medical history of COPD on 3 L of baseline oxygen, osteoarthritis, dementia, AFib on aspirin only, seizure disorder, Crohn's ulcerative colitis, hypertension, BPH comes into the hospital with confusion.? On my interview patient is alert oriented to self and place, able to answer questions appropriately.? He was brought into the hospital by his for increased confusion and encephalopathy.? It appears the patient has been having increased falls over the last few weeks.? Patient lives in assisted living and she lives independently.? Of note patient was seen in the hospital on day prior after having a fall, his workup was negative and he was sent back home.? Today this morning when his spoke to him over the phone he seemed increasingly confused, patient reports that he has been feeling short of breath, and has had a cough for the past 2 days.? He reports feeling slight chills, but has had no chest pain, no abdominal pain nausea or vomiting, no diarrhea constipation, no urinary symptoms and no lower extremity edema On arrival to the ED patient has a fever of 101.3 Labs are significant for WBC count of 13.2, BNP negative, UA negative, Chest CT shows foci airspace disease right middle lobe. Patient started on IV antibiotics will be admitted 82-year-old man admitted with acute metabolic encephalopathy secondary to community-acquired pneumonia. He was treated with IV Rocephin and azithromycin. Respiratory pathogen panel negative as well as blood cultures. Patient did not have any hypoxia although he has a history of using 3 L nasal cannula chronically. She was also treated with IV Solu-Medrol and scheduled DuoNebs for COPD exacerbation and acute hypoxic respiratory failure. He will complete a total of 7 days antibiotic treatment and continue his other medications for COPD. thrombocytopenia . Likely secondary to acute infection. macrocytic anemia . Stable H&H paroxysmal atrial fibrillation. Continue home medications and aspirin hyperlipidemia continue statin Mood continue seroquel, trintellix Seizure. No seizure activity during admission. continue depakote Crohns disease continue mesalamine Time Spent with Patient Time attestation: Total time managing care of this patient today ____ minutes. Discharge coordination time: Greater than 30 minutes Quality: Safe Use of Opioids Does Pt have an Active Cancer Diagnosis on the Problem List?: No Quality: Stroke Does the patient have a stroke diagnosis?: No Physical Exam Vital Signs: Vital Signs: Last Vital Signs Temp 97.0 F 11/06/22 07:26 Pulse 96 11/06/22 12:11 Resp 17 11/06/22 12:11 BP 113/63 11/06/22 07:26 Pulse Ox 96 11/06/22 07:26 O2 Del Method Nasal Cannula 11/06/22 07:26 O2 Flow Rate 2 11/06/22 07:26 Oxygen Flow Rate 3 11/02/22 14:22 BMI result Body Mass Index 26.0 Appearing in no acute distress head is normocephalic atraumatic eyes pupils are PERRLA sclera is anicteric mouth throat mucous membranes are intact and moist neck is supple no lymphadenopathy, no JVD noted lung sounds are clear to auscultation heart regular rate rhythm, clear S1, S2 positive bowel sounds, abdomen is soft, nontender neuro patient is alert x3, no focal deficits DS: Data Data Completed and Pending Labs on day of discharge: Preliminary micro results at discharge 11/02/22 17:46 Blood Culture - Preliminary Blood - Venous No growth after 48 hours. 11/02/22 17:42 Blood Culture - Preliminary Blood - Venous No growth after 48 hours. Discharge Plan Discharge Anticipated Discharge Date/Time: 11/06/22 13:48 Patient Disposition: Xfer Inpatient Rehab Fac Discharge Diagnosis: Acute metabolic encephalopathy Community-acquired pneumonia Acute COPD exacerbation Referrals: Savita Metcalf MD [Primary Care Provider] - 1 Week Discharge Medications: New cefuroxime axetil 500 mg tablet 500 mg PO BID Qty: 4 0RF azithromycin 250 mg tablet 250 mg PO DAILY 2 Days Qty: 2 0RF Continued Flovent HFA 110 mcg/actuation HFA aerosol inhaler 2 puff inhalation BID 30 Days Qty: 12 11RF Stiolto Respimat 2.5-2.5 mcg/actuation mist 2 puff PO DAILY 30 Days Qty: 4 11RF ipratropium-albuterol 0.5 mg-3 mg(2.5 mg base)/3 mL solution for nebulization 3 ml inhalation BID 30 Days Qty: 180 11RF multivitamin Tablet 1 tab PO DAILY aspirin 81 mg tablet,delayed release (DR/EC) 81 mg PO DAILY atorvastatin 10 mg tablet 10 mg PO DAILY quetiapine 25 mg tablet 12.5 mg PO TID tamsulosin 0.4 mg capsule 0.4 mg PO DAILY Trintellix 10 mg tablet 10 mg PO BID propafenone 225 mg tablet 225 mg PO BID albuterol sulfate 90 mcg/actuation HFA aerosol inhaler 2 inh inhalation Q6H PRN (Reason: shortness of breath or wheezing) 30 Days Qty: 18 12RF mesalamine 0.375 gram capsule,extended release 24hr 1.5 g PO QAM fexofenadine 60 mg tablet 60 mg PO DAILY PRN (Reason: Allergy Symptoms) docusate sodium 100 mg capsule 100 mg PO DAILY divalproex 500 mg tablet,delayed release (DR/EC) 500 mg PO BID (DME) nebulizers Misc See Rx Instructions .ROUTE Rx Instructions: As directed (DME) Oxygen Home Use Kit See Rx Instructions .ROUTE Rx Instructions: As directed Discharge Orders: Discharge Order (Routine); Ordered 11/06/22 Ordered By: Etelvina Farnsworth Diet: Advance to usual diet Activity on Discharge: As tolerated Stand Alone Forms: Patient Portal Discharge page Care Plan Goals: complete resolution of symptoms Health Concerns: Acute metabolic encephalopathy Community-acquired pneumonia Acute COPD exacerbation Plan of Treatment: Follow-up with primary care provider as needed Take all medications as prescribed Assessment: See discharge summary
--- NOTE | 2022-11-06 15:39 | MHC.CM.PN ---
IMM 11/03/22 Patient is discharged today. He will transfer to [facility]. He will be picked up at 5:30pm by [place] [facility].
[2022-11-06 15:41] VITALS: PULSE 71; RESP 18; O2SAT 97
[2022-11-06 16:00] VITALS: BP 107/64; PULSE 68; RESP 18; TEMP 36.3; O2SAT 96
== END 2022-11-06 18:42 | DRG 193 ==
LOC: HO.ED 21:15 → HO.EDOVER 22:14 → HO.S3 11-03 00:34
PROVIDERS: Nurse Practitioner Family; Physician Assistant Medical; Admitting Provider Internal Medicine; Emergency Provider Emergency Medicine; PCP Internal Medicine; Visit Provider Nurse Practitioner Acute Care
DX: J18.9 Pneumonia, unspecified organism (principal); G93.41 Metabolic encephalopathy; J44.0 Chronic obstructive pulmonary disease with (acute) lower respiratory infection; J96.11 Chronic respiratory failure with hypoxia; J44.1 Chronic obstructive pulmonary disease with (acute) exacerbation; K50.90 Crohn's disease, unspecified, without complications; F03.90 Unspecified dementia, unspecified severity, without behavioral disturbance, psychotic disturbance, mood disturbance, and anxiety; Z99.81 Dependence on supplemental oxygen; D69.59 Other secondary thrombocytopenia; F39 Unspecified mood [affective] disorder; I48.0 Paroxysmal atrial fibrillation; D53.9 Nutritional anemia, unspecified; E78.5 Hyperlipidemia, unspecified; N40.0 Benign prostatic hyperplasia without lower urinary tract symptoms; Z20.822 Contact with and (suspected) exposure to COVID-19; Z87.891 Personal history of nicotine dependence; Z79.51 Long term (current) use of inhaled steroids; Z79.82 Long term (current) use of aspirin; Z79.899 Other long term (current) drug therapy
CPT/HCPCS: 36415; 70450; 71260; 72125; 74177; 80048; 80076; 81001; 82550; 82607; 82746; 83605; 83735; 84145; 84484; 85025; 85027; 87040; 87633; 87635; 93005; 94640; 97116; 97163; 97530; 99285; J0456; J0696; J1650; J1885; J2920

== ENCOUNTER → 2022-11-02 22:04 | Outpatient (BNV) | payer MEDICARE, OTHER, SELFPAY | PROVIDERS: Admitting Provider Internal Medicine; Emergency Provider Emergency Medicine; PCP Internal Medicine; Visit Provider Internal Medicine | DX: J18.9 Pneumonia, unspecified organism (principal); J44.9 Chronic obstructive pulmonary disease, unspecified | CPT/HCPCS: 99223; 99232; 99233; 99239 ==